=== PATIENT | female | born 2000 | race Caucasian/White ===

== ENCOUNTER → 2018-06-30 18:26 | Outpatient (CLI) | payer MEDICAID, SELFPAY ==
[2018-06-30 21:50] LABS: Chlamydia Trachomatis by PCR Negative (Negative); Neisserai gonorrhoeae by PCR Negative (Negative); Probe Check PASS; Sample Adequacy Control PASS; Specimen Processing Control PASS
== END ==
PROVIDERS: Family Provider Family Medicine; PCP Family Medicine; Visit Provider Nurse Practitioner Women's Health
DX: Z11.3 Encounter for screening for infections with a predominantly sexual mode of transmission (principal)
CPT/HCPCS: 87491; 87591

== ENCOUNTER → 2020-06-29 15:28 | Outpatient (CLI) | payer OTHER, SELFPAY ==
[2020-06-29 14:37] VITALS: BMI 26.1
[2020-06-29 16:48] LABS: Prolactin 10.9 ng/mL; Thyroid Stim Hormone (TSH) 1.28 uIU/mL (0.358-3.74)
[2020-07-04 13:44] LABS: HPV Reflexed? NOT INDICATED
== END ==
PROVIDERS: Referring Provider Obstetrics & Gynecology; Visit Provider Obstetrics & Gynecology
DX: N93.9 Abnormal uterine and vaginal bleeding, unspecified (principal); Z13.29 Encounter for screening for other suspected endocrine disorder; Z12.4 Encounter for screening for malignant neoplasm of cervix
CPT/HCPCS: 36415; 84146; 84443; 88175; G0145

== ENCOUNTER → 2020-07-20 | Outpatient (CLI) | payer OTHER, SELFPAY ==
[2020-06-29 14:37] VITALS: BMI 26.1
--- NOTE | 2020-07-20 13:53 | US_ITS ---
STUDY: ULTRASOUND OF THE FEMALE PELVIS - COMPLETE REASON FOR EXAM: Female, 20 years old. HEAVY BLEEDING AND CRAMPING, ABNORMAL CYCLES LMP: 07/14/2020 TECHNIQUE: Transabdominal and Transvaginal TECHNICAL QUALITY: Adequate. COMPARISON: None. FINDINGS: The uterus is retroflexed and is in a midline position. The uterus measures 5.3 x 3.1 x 4.5 cm. Normal uterine cervix. The endometrium measures 4.3 mm in thickness, and is within normal limits. There is no demonstrated endometrial mass. There is no demonstrated myometrial mass. I.U.D. - The patient does not have an I.U.D. The right ovary is visualized. The right ovary measures 2.9 x 2.5 x 2.2 cm. There are several subcentimeter peripherally located cysts. There is normal arterial and normal venous vascularity. The left ovary is visualized. The left ovary measures 3.6 x 2.1 x 2.3 cm. There are peripherally located subcentimeter cysts. There is normal arterial and normal venous vascularity. There is minimal fluid in the cul-de-sac. US/Transvaginal Non- IMPRESSION: Peripherally located subcentimeter cysts within the ovaries, in the appropriate clinical setting this may be secondary to polycystic ovarian syndrome. Electronically Signed: Josselyn Oneal MD at 17:06 EDT Tel , Service support ,
--- NOTE | 2020-07-20 13:53 | US_ITS ---
STUDY: ULTRASOUND OF THE FEMALE PELVIS - COMPLETE REASON FOR EXAM: Female, 20 years old. HEAVY BLEEDING AND CRAMPING, ABNORMAL CYCLES LMP: 07/14/2020 TECHNIQUE: Transabdominal and Transvaginal TECHNICAL QUALITY: Adequate. COMPARISON: None. FINDINGS: The uterus is retroflexed and is in a midline position. The uterus measures 5.3 x 3.1 x 4.5 cm. Normal uterine cervix. The endometrium measures 4.3 mm in thickness, and is within normal limits. There is no demonstrated endometrial mass. There is no demonstrated myometrial mass. I.U.D. - The patient does not have an I.U.D. The right ovary is visualized. The right ovary measures 2.9 x 2.5 x 2.2 cm. There are several subcentimeter peripherally located cysts. There is normal arterial and normal venous vascularity. The left ovary is visualized. The left ovary measures 3.6 x 2.1 x 2.3 cm. There are peripherally located subcentimeter cysts. There is normal arterial and normal venous vascularity. There is minimal fluid in the cul-de-sac. US/Pelvic (Non ) IMPRESSION: Peripherally located subcentimeter cysts within the ovaries, in the appropriate clinical setting this may be secondary to polycystic ovarian syndrome. Electronically Signed: Josselyn Oneal MD at 17:06 EDT Tel , Service support ,
== END | disposition home or self-care (01) ==
LOC: OPUS 13:53
PROVIDERS: Referring Provider Obstetrics & Gynecology; Visit Provider Obstetrics & Gynecology
DX: N93.9 Abnormal uterine and vaginal bleeding, unspecified (principal)
CPT/HCPCS: 76830; 76856

== ENCOUNTER → 2020-10-18 | Outpatient (CLI) | payer OTHER, SELFPAY ==
[2020-06-29 14:37] VITALS: BMI 26.1
== END | disposition home or self-care (01) ==
LOC: LABSPEC 13:50
PROVIDERS: PCP Family Medicine; Referring Provider Family Medicine; Visit Provider Family Medicine
DX: Z20.828 Contact with and (suspected) exposure to other viral communicable diseases (principal)
CPT/HCPCS: 87633; 87635; U0003

== ENCOUNTER → 2020-10-26 11:38 | Outpatient (CLI) | payer OTHER, SELFPAY ==
[2020-06-29 14:37] VITALS: BMI 26.1
[2020-10-26 13:49] LABS: Absolute Lymphocyte Count 1.29 X10^3/uL (0.83-4.51); Basophil# 0.03 X10^3/uL; Basophil% 0.6 % (0-1); Eosinophil# 0.14 X10^3/uL; Eosinophils% 2.9 % (0-5); Hematocrit 36.5 % (37-47); Hemoglobin 11.5 g/dL (12.0-15.0); Lymphocyte # 1.29 X10^3/ul (4.0); Lymphocyte % 26.8 % (19-41); Mean Corp Hgb Conc 31.5 g/dL (32-36); Mean Corpuscular Volume 82.4 fL (81-99); Monocyte# 0.31 X10^3/uL; Monocyte% 6.4 % (0-10); NRBC Flagged by Analyzer 0 % (0-5); Neutrophil # 3.03 X10^3/uL (2.7-7.7); Neutrophil % 63.1 % (47-70); Platelet Count 313 K/mm3 (150-450); RBC Distribution Width CV 12.5 % (11.6-14.6); RBC Distribution Width SD 38.1 fl (35.1-43.9); Red Blood Count 4.43 M/mm3 (4.2-5.4); White Blood Count 4.8 K/mm3 (4.4-11.0)
[2020-10-26 14:13] LABS: ALB/GLOB Ratio 1.1 RATIO (0.9-2.4); AST(SGOT) 21 U/L (15-37); Alanine Aminotransfer ALT/SGPT 24 U/L (13-56); Alkaline Phosphatase 90 U/L (45-117); Anion Gap 7 (5-15); BUN 10 mg/dL (7-18); BUN/Creat Ratio 12.8 RATIO (10-20); Calcium,Total 8.9 mg/dL (8.5-10.1); Chloride 105 mmol/L (98-107); Creatinine, Serum 0.78 mg/dL (0.55-1.02); EST Glomerular Filtration Rate 98 mL/min (>60); Est Glom Filt Rate - Afr Amer 118 mL/min (>60); Globulin 3.8 g/dL (2.2-4.2); Glucose 87 mg/dL (74-106); Potassium 3.7 mmol/L (3.5-5.1); Protein, Total 7.8 g/dL (6.4-8.2); Sodium Level 138 mmol/L (136-145); Thyroid Stim Hormone (TSH) 2.06 uIU/mL (0.358-3.74)
== END ==
PROVIDERS: PCP Family Medicine; Referring Provider Family Medicine; Visit Provider Family Medicine
DX: R00.0 Tachycardia, unspecified (principal)
CPT/HCPCS: 36415; 80053; 84443; 85025

== ENCOUNTER → 2020-11-10 08:15 | Outpatient (CLI) | payer BC, SELFPAY ==
[2020-06-29 14:37] VITALS: BMI 26.1
--- NOTE | 2020-11-10 16:59 | PFTCOMP_ITS ---
COMPLETE PULMONARY FUNCTION TEST INTERPRETATION Brief HPI: Patient is a 20 year old female, currently under the care of Dr. Rose, who presents to [facility] for complete pulmonary function tests secondary to diagnosis of asthma. Respiratory therapist reports good effort and reproducible results. Interpretation: Forced expiration spirometry shows a mild large airways obstructive ventilatory defect with an FEV1 of 99% predicted. There is a significant bronchodilator response in FEV1 by strict ATS criteria. Spirograms are of good quality and plateau slowly, indicating slowly emptying areas of the lungs. The respiratory flow volume loop shows decreased expiratory flow rates at all lung volumes consistent with airway obstruction. Lung volumes by body plethysmography show a decreased total lung capacity at 3.88 L, 75% predicted. All other lung volumes are reduced symmetrically. Diffusion capacity by carbon monoxide is normal at 98% predicted. The airway resistance is slightly elevated. No previous pulmonary function tests were available for review. Impression: Mild mixed ventilatory defect with normalization of obstruction with bronchodilators
== END ==
PROVIDERS: PCP Family Medicine; Referring Provider Family Medicine; Visit Provider Family Medicine
DX: J45.20 Mild intermittent asthma, uncomplicated (principal)
CPT/HCPCS: 94060; 94726; 94729

== ENCOUNTER → 2020-12-01 18:59 | Outpatient (CLI) | payer BC, SELFPAY ==
[2020-06-29 14:37] VITALS: BMI 26.1
--- NOTE | 2020-12-01 19:06 | US_ITS ---
STUDY: ABDOMINAL ULTRASOUND REASON FOR EXAM: Female, 20 years old. RUQ PAIN TECHNIQUE: Transabdominal ultrasound was performed with real-time and static marin scale imaging. TECHNICAL QUALITY: Adequate. COMPARISON: None. FINDINGS: Aorta: Visualized portions of abdominal aorta are normal in diameter. IVC: Visualized portions appear patent. Pancreas: Visualized portions of pancreas are unremarkable. Liver: Measures 15.8 cm. Liver shows normal echogenicity. There are 2 irregular hyperechoic lesions within the right liver measuring 3.2 cm and 1.9 cm respectively. Gallbladder: No stones or wall thickening. Negative sonographic Aguilar''s sign. Common bile duct: Measures 3 mm. No intraductal stones identified. Right kidney: Measures 10.9 cm in length. Normal contour. No cysts. No masses, stones, or hydronephrosis identified. Renal cortical thickness appears normal. Left kidney: Measures 10.1 cm in length. Normal contour. 1 cm cyst . No masses, stones, or hydronephrosis identified. Renal cortical thickness appears normal. Spleen: Measures 13.4 cm. It shows homogeneous echotexture. Additional findings: None of significance. US/Abdomen Complete IMPRESSION: Hepatic lesions as above are incompletely characterized. Recommend dedicated hepatic mass protocol MRI for further evaluation. Diffusely increased hepatic echogenicity may indicate steatosis in the appropriate clinical setting. Prominent spleen at the upper limits of normal for size Electronically Signed: Seth Bell MD at 21:18 EST Tel , Service support ,
== END ==
PROVIDERS: PCP Family Medicine; Visit Provider Family Medicine
DX: R10.9 Unspecified abdominal pain (principal)
CPT/HCPCS: 76700

== ENCOUNTER → 2020-12-02 08:03 | Outpatient (CLI) | payer BC, SELFPAY ==
[2020-06-29 14:37] VITALS: BMI 26.1
[2020-12-02 09:53] LABS: Absolute Lymphocyte Count 1.21 X10^3/uL (0.83-4.51); Absolute Neutrophil Count 2.9 X10^3/uL (2.0-7.7); Basophil# 0.03 X10^3/uL; Basophil% 0.6 % (0-1); Eosinophil# 0.19 X10^3/uL; Hematocrit 36.6 % (37-47); Hemoglobin 11.5 g/dL (12.0-15.0); Lymphocyte # 1.21 X10^3/ul (4.0); Lymphocyte % 25.6 % (19-41); Mean Corp Hgb Conc 31.4 g/dL (32-36); Mean Corpuscular Hgb 25.3 pg (27.0-32.0); Mean Corpuscular Volume 80.4 fL (81-99); Mean Platelet Vol. 11.1 fl (6.2-12.0); Monocyte# 0.36 X10^3/uL; Monocyte% 7.6 % (0-10); NRBC Flagged by Analyzer 0 % (0-5); Neutrophil # 2.93 X10^3/uL (2.7-7.7); Platelet Count 306 K/mm3 (150-450); RBC Distribution Width CV 12.8 % (11.6-14.6); RBC Distribution Width SD 37.1 fl (35.1-43.9); Red Blood Count 4.55 M/mm3 (4.2-5.4); White Blood Count 4.7 K/mm3 (4.4-11.0)
[2020-12-02 10:15] LABS: ALB/GLOB Ratio 1.1 RATIO (0.9-2.4); AST(SGOT) 22 U/L (15-37); Alanine Aminotransfer ALT/SGPT 24 U/L (13-56); Albumin, Serum 4.1 g/dL (3.2-5.0); Alkaline Phosphatase 90 U/L (45-117); Anion Gap 6 (5-15); BUN 10 mg/dL (7-18); BUN/Creat Ratio 12.7 RATIO (10-20); Chloride 107 mmol/L (98-107); Creatinine, Serum 0.79 mg/dL (0.55-1.02); EST Glomerular Filtration Rate 97 mL/min (>60); Est Glom Filt Rate - Afr Amer 117 mL/min (>60); Globulin 3.8 g/dL (2.2-4.2); Glucose 81 mg/dL (74-106); Lipase 154 U/L (73-393); Potassium 4.1 mmol/L (3.5-5.1); Protein, Total 7.9 g/dL (6.4-8.2); Sodium Level 138 mmol/L (136-145)
[2020-12-04 07:11] LABS: EBV-VCA IgG > 600.0 U/mL (0.0-17.9)
== END ==
PROVIDERS: PCP Family Medicine; Referring Provider Family Medicine; Visit Provider Family Medicine
DX: R10.9 Unspecified abdominal pain (principal)
CPT/HCPCS: 36415; 80053; 83690; 85025; 86664; 86665

== ENCOUNTER → 2020-12-07 06:36 | Outpatient (CLI) | payer BC, SELFPAY ==
[2020-06-29 14:37] VITALS: BMI 26.1
--- NOTE | 2020-12-07 06:58 | MRI_ITS ---
STUDY: MRI ABDOMEN WITH AND WITHOUT CONTRAST REASON FOR EXAM: Female, 20 years old. abnormal utrasound, INCREASED RUQ PAIN, N/V TECHNIQUE: Standardized fat and water weighted pulse sequences were obtained in all 3 orthogonal planes post contrast administration. IV 10cc dotarem was administered for the contrast portion of the examination. COMPARISON: Ultrasound 12/01/2020 FINDINGS: The visualized lung bases are unremarkable. The visualized portions of the heart are within normal limits. There are multiple lesions within the liver. There is a 3.0 cm mass within the anterior segment the right lobe of the liver within the dome of the liver and a similar 2.2 cm mass within the lateral segment left lobe of the liver. These are slightly hypointense on T1 slightly hyperintense on T2 and demonstrate the peripheral circumferential dense contrast enhancement on the hepatic arterial phase with a central area of decreased enhancement and rapid washout on subsequent phases most consistent with hepatic adenomas. Clinical correlation is recommended regarding the oral contraceptive use. There is a 1.5 cm round mass within the lateral aspect of the anterior segment the right lobe of the liver. This mass is hypointense on T1-weighted images and hyperintense on the T2-weighted images with restricted diffusion which demonstrates peripheral globular contrast enhancement with gradual filling in over time consistent with a hemangioma. This likely corresponds to the larger mass seen on recent ultrasound. There is a similar 1 cm lesion in the posterior segment the right lobe of liver which is too small to fully characterize but also felt to represent a hemangioma. Normal gallbladder and extrahepatic biliary system. Normal spleen. Normal pancreas. Normal bilateral adrenal glands. Normal right kidney. Normal left kidney. Normal visualized stomach. Normal small intestine. Normal colon. The appendix is visualized and appears normal. Normal abdominal aorta. Normal inferior vena cava. Normal retroperitoneum. Normal abdominal wall. Normal osseous structures. MRI/MRI Abd WITH and W/O Contrast IMPRESSION: 1. MRI confirms 2 early enhancing masses within the superior aspect of the liver felt to represent hepatic adenomas. Clinical correlation is recommended to confirm oral contraceptive use. Other less likely possibilities include focal nodular hyperplasia or much less likely the multifocal hepatocellular carcinoma including fibrolamellar hepatocellular carcinoma or metastasis. 2. MRI confirms 2 lesions with peripheral globular enhancement within the periphery of the right lobe of liver corresponding to the lesion seen on ultrasound consistent with hemangiomas. Electronically Signed: Jeovanny Hernandez MD at 8:46 EST Tel , Service support ,
== END ==
PROVIDERS: PCP Family Medicine; Referring Provider Family Medicine; Visit Provider Family Medicine
DX: K76.9 Liver disease, unspecified (principal)
CPT/HCPCS: 74183; A9575; A4216

== ENCOUNTER → 2020-12-09 16:26 | Outpatient (CLI) | payer BC, SELFPAY ==
[2020-06-29 14:37] VITALS: BMI 26.1
[2020-12-09 18:06] LABS: AST(SGOT) 20 U/L (15-37); Alanine Aminotransfer ALT/SGPT 26 U/L (13-56); Albumin, Serum 4.2 g/dL (3.2-5.0); Alkaline Phosphatase 97 U/L (45-117); Bilirubin, Direct 0.07 mg/dL (0.00-0.30); GGTP 40 U/L (5-55); Protein, Total 8.2 g/dL (6.4-8.2)
[2020-12-12 06:06] LABS: HEPATITIS B SURFACE AG Negative (Negative); Hepatitis A AB, Total Positive (Negative); Hepatitis A IgM Antibody Negative (Negative); Hepatitis B Core AB IgM Negative (Negative); Hepatitis B Core Ab Total Negative (Negative); Hepatitis C Ab <0.1 s/co ratio (0.0-0.9)
[2020-12-12 11:14] LABS: Hep B Surface Antibodies Reactive (.)
== END ==
PROVIDERS: PCP Family Medicine; Referring Provider Family Medicine; Visit Provider Family Medicine
DX: K76.9 Liver disease, unspecified (principal)
CPT/HCPCS: 36415; 80076; 82977; 86704; 86705; 86706; 86708; 86709; 86803; 87340

== ENCOUNTER → 2020-12-20 10:21 | Outpatient (CLI) | payer BC, SELFPAY ==
[2020-06-29 14:37] VITALS: BMI 26.1
--- NOTE | 2020-12-20 10:24 | NM_ITS ---
CLINICAL: 20-year-old female with reported history of right upper quadrant abdominal pain and nausea. RADIONUCLIDE HEPATOBILIARY SCINTIGRAPHY COMPARISON: MRI of the abdomen report 12/07/2020, abdominal ultrasound report 01/01/2021 FINDINGS: Following the intravenous administration of 5.4 mCi of 99m Tc Mebrofenin, hepatobiliary images reveal: 1. Relatively prompt and homogeneous radiopharmaceutical concentration is noted by a normal sized liver. No parenchymal defects are identified. 2. Gallbladder activity is identified at 15 minutes post radiopharmaceutical administration. 3. Small intestinal tract is observed at 45 minutes following tracer injection. 4. Washout of the radiopharmaceutical by the hepatic parenchyma appears qualitatively normal. Cholecystokinin (0.02 ug/kg) was administered intravenously over a 30-minute period. The post CCK gallbladder ejection fraction calculated at 20 minutes following Cholecystokinin administration was noted to be 32.0 % (normal greater than 35%). NM/Hepatobilliary Img w/Pharm Int IMPRESSION: 1. ABNORMAL 99m Tc Mebrofenin hepatobiliary imaging examination with Cholecystokinin. A. A gallbladder ejection fraction calculated to be less than 35% following the administration of Cholecystokinin is consistent with a high probability of the presence of functional hepatobiliary disease (gallbladder and/or sphincter of Oddi dyskinesia) and/or organic hepatobiliary disease (chronic acalculous cholecystitis and/or cystic duct syndrome) in patients with intermediate to high pretest probabilities of hepatobiliary illness. (Shraddha Horan et al, Journal of Nuclear Medicine 32:1695, 1991). Electronically Signed: Jeovanny Mai DO at 23:03 EST Tel , Service support ,
== END ==
PROVIDERS: PCP Family Medicine; Visit Provider Family Medicine
DX: R10.11 Right upper quadrant pain (principal)
CPT/HCPCS: 78227; A9537; J2805

== ENCOUNTER → 2021-01-04 | Outpatient (CLI) | payer BC, SELFPAY ==
[2020-12-23 13:13] VITALS: BMI 26.3
[2021-01-05 15:06] LABS: Probe Check PASS; Specimen Processing Control PASS
== END | disposition home or self-care (01) ==
PROVIDERS: PCP Family Medicine; Referring Provider Internal Medicine Gastroenterology; Visit Provider Internal Medicine Gastroenterology
DX: Z11.52 Encounter for screening for COVID-19 (principal)
CPT/HCPCS: 87635; U0002; U0003

== ENCOUNTER → 2021-04-10 | Outpatient (CLI) | payer BC, SELFPAY ==
[2020-12-23 13:13] VITALS: BMI 26.3
== END | disposition home or self-care (01) ==
LOC: LABSPEC 15:50
PROVIDERS: PCP Family Medicine; Visit Provider Family Medicine
DX: L02.91 Cutaneous abscess, unspecified (principal)
CPT/HCPCS: 87070; 87205

== ENCOUNTER 2021-06-11 22:28 | Emergency (ER) | payer BC, SELFPAY ==
[2020-12-23 13:13] VITALS: BMI 26.3
[2021-06-11 22:29] VITALS: BP 127/89; PULSE 108; RESP 16; TEMP 36.6; O2SAT 100; BMI 26.2
[2021-06-11 22:31] VITALS: BP 127/89; PULSE 102; RESP 16; TEMP 36.6; O2SAT 100
[2021-06-11 22:35] VITALS: O2SAT 97
--- NOTE | 2021-06-11 22:50 | RAD_ITS ---
STUDY: X-RAY CHEST REASON FOR EXAM: Female, 21 years old. cough TECHNIQUE: PA and lateral views of the chest. COMPARISON: None. FINDINGS: No focal infiltrates or effusions. No pneumothorax. Normal size heart. Normal mediastinum and kelly. Normal visualized pulmonary arteries. Normal visualized aortic arch and descending thoracic aorta. Normal visualized thoracic spine. Normal visualized ribs, clavicles, and shoulders. There is no demonstrated abnormality of the visualized soft tissue structures of the upper abdomen. RAD/Chest PA and Lateral IMPRESSION: Normal x-ray examination of the chest. Electronically Signed: Alfred Tony MD at 0:11 EDT , Service support ,
--- NOTE | 2021-06-11 22:50 | EKG12_ITS ---
Test Reason : SOB Blood Pressure : / mmHG Vent. Rate : 098 BPM Atrial Rate : 098 BPM P-R Int : 130 ms QRS Dur : 084 ms QT Int : 332 ms P-R-T Axes : 046 020 026 degrees QTc Int : 423 ms Normal sinus rhythm Normal ECG Confirmed by LITZY DÍAZ, MARY ([id number]), brands editor ARACELIS DIANA ([id number]) on 06/14/2021 9:51:08 AM Referred By: KELL Confirmed By:MARY MCGHEE MD
--- NOTE | 2021-06-11 22:52 | EDS_ITS ---
HPI History of Present Illness Chief Complaint: Cold Sx Informant: patient Narrative Narrative: Patient presents with about 3 days of nasal congestion runny nose and very slight sore throat. She is also been coughing. She has been using her inhaler a bit more as she does have asthma. She does note that she has more wheezing in between. She feels her lungs are tight. The albuterol does seem to help. She is also concerned because many people where she works have Covid or have been exposed. She has not been immunized against Covid nor has she ever had it as far as she knows. No hemoptysis. She does have some yellowish sputum. No fevers or chills. Nothing makes her symptoms worse. Albuterol does make them a bit better. PFSH PFS Medical History Abdominal pain Acid reflux Anemia Anxiety Anxiety and depression Asthma Back problem Constipation Depression Diarrhea Fatigue IBS (irritable bowel syndrome) Nausea & vomiting Home Medications albuterol sulfate 90 mcg/actuation aerosol inhaler 2 puff INHALATION Q4H PRN g 12/23/20 [History Last Taken Unknown] amitriptyline 25 mg tablet 12.5 mg PO QHS tab 12/23/20 [History Last Taken Unknown] dicyclomine 10 mg capsule 10 mg PO ONCE PRN cap 12/23/20 [History Last Taken Unknown] ferrous sulfate 325 mg (65 mg iron) tablet,delayed release 325 mg PO DAILY tab 12/23/20 [History Last Taken Unknown] omeprazole 20 mg capsule,delayed release 20 mg PO DAILY cap 12/23/20 [History Last Taken Unknown] sertraline 100 mg tablet 100 mg PO DAILY tab 12/23/20 [History Last Taken Unknown] sertraline 25 mg tablet 50 mg PO DAILY tab 12/23/20 [History Last Taken Unknown] Allergy/AdvReac Type Severity Reaction Status Date / Time No Known Allergies Allergy Verified 06/11/21 22:31 Family History Mother Breast cancer 20s Cervical cancer Aunt Breast cancer 30s Grandmother Diabetes Hypertension Surgical History Hx of wisdom tooth extraction Social History current occupation: [email or web address] Smoking Status: Never smoker second hand exposure: No alcohol intake: never substance use type: does not use caffeine: Yes Type: coffee Number of servings: 4 what type of physical activity do you participate in: none and walking frequency: does not exercise seatbelt use: always do you feel safe at home: Yes ROS ROS ED Constitutional Constitutional ED: Denies chills, fever(s) or weight loss Eyes Eyes: Denies change in vision ENT ENT ED: Reports rhinorrhea and sore throat; Denies ear pain Cardiovascular Cardiovascular: Denies chest pain, palpitations or paroxysmal nocturnal dyspnea Respiratory/Chest Respiratory/Chest: Reports cough, dyspnea and sputum; Denies paroxysmal nocturnal dyspnea Gastrointestinal Gastrointestinal: Denies abdominal pain, nausea or vomiting Genitourinary Genitourinary ED: Denies dysuria or hematuria Musculoskeletal Musculoskeletal: Reports other Details: No leg pain or swelling. ; Denies arthralgias, back pain, myalgias or neck pain Integumentary Denies abscess or rash Neurologic Neurologic: Denies paresthesias Psychiatric Psychiatric: Reports anxiety and depression Hematologic/Lymphatic Hematologic/Lymphatic: Denies easy bleeding or easy bruising EXAM Physical Exam Const Vital Signs: 06/11/21 22:29 06/11/21 22:31 06/11/21 22:35 Temperature 97.9 F 97.9 F Temperature Source Temporal Temporal Pulse Rate 108 H 102 H Respiratory Rate 16 16 Respiratory Effort Normal Non-Labored Respiratory Depth Normal Respiratory Pattern Normal Blood Pressure 127/89 H 127/89 H Blood Pressure Mean 101 101 Pulse Ox 100 100 Oxygen Delivery Method Room Air Room Air Room Air 06/11/21 23:08 Temperature Temperature Source Pulse Rate 102 H Respiratory Rate 16 Respiratory Effort Respiratory Depth Respiratory Pattern Normal Blood Pressure Blood Pressure Mean Pulse Ox Oxygen Delivery Method Positive well nourished and well developed General Appearance ED: well developed and NAD HEENT HEENT Narrative: Pharynx is minimally erythematous but there is no swelling or exudate. Voice is normal. atraumatic Eyes EOMs intact bilaterally Neck no lymphadenopathy and supple Neck Narrative: No stridor heard Resp normal respiratory effort Resp Narrative: Patient has slight prolonged expiration but no significant wheeze at this time. By her history, she does have increased wheezing though. Cardio regular rate and regular rhythm Cardio Narrative: Heart rate is about 90 at this time. GI non-tender and non-distended Palpation: soft Back/Spine no CVA tenderness and normal to inspection Extremity normal to inspection Extremity Narrative: Extremities show no tenderness, cords, asymmetry, swelling, distended veins. General Extremety ED: Negative for edema or tenderness General Extremity: Negative for edema Neuro oriented x3 Sensorium / Orientation: alert Psych mental status grossly normal Skin Lesions: no lesions Rashes: no rashes MDM MDM MDM Narrative Medical decision making narrative: Patient feels better after DuoNeb. Her lungs are clear. When I walk in the room she is smiling. She is comfortable. I do not have Covid back. Patient does have a history of asthma. Has been having some more upper respiratory cough and wheezing. I will give her a dose of Decadron. She has her inhaler at home. We discussed reasons to return. Radiography Diagnostic Testing: Radiology Impression Chest X-Ray 06/11/21 22:50 IMPRESSION: Normal x-ray examination of the chest. Electronically Signed: Alfred Tony MD at 0:11 EDT , Service support , Discharge Plan Triage Chief Complaint: Cold Sx ED Provider: Cole Castañeda Dx/Rx/DC Orders Clinical Impression: URI (upper respiratory infection), Asthma exacerbation Instructions: Asthma Prescriptions: No Action sertraline [Zoloft] 25 mg tablet 50 mg PO DAILY RF: 0 sertraline 100 mg tablet 100 mg PO DAILY RF: 0 omeprazole 20 mg capsule,delayed release(DR/EC) 20 mg PO DAILY RF: 0 amitriptyline 25 mg tablet 12.5 mg PO QHS RF: 0 ferrous sulfate 325 mg (65 mg iron) tablet,delayed release (DR/EC) 325 mg PO DAILY RF: 0 albuterol sulfate 90 mcg/actuation HFA aerosol inhaler 2 puff INHALATION Q4H PRNRF: 0 dicyclomine 10 mg capsule 10 mg PO ONCE PRNRF: 0 Primary Care Provider: Yonis Rose Referrals: Yonis Rose MD [Primary Care Provider] - 3-5 Days if not improving Disposition Disposition: Home, Self Care
[2021-06-11] MEDS: Ipratropium/Albuterol Sulfate 3 ML AMPUL.NEB INHALATION (23:07)
[2021-06-11 23:08] VITALS: PULSE 102; RESP 16
[2021-06-12] MEDS: dexAMETHasone 4 MG Tablet 6 MG PO (01:40)
== END 2021-06-12 01:42 | disposition home or self-care (01) ==
PROVIDERS: Emergency Provider Emergency Medicine; PCP Family Medicine
DX: J45.901 Unspecified asthma with (acute) exacerbation (principal); J06.9 Acute upper respiratory infection, unspecified; F41.9 Anxiety disorder, unspecified; F32.9 Major depressive disorder, single episode, unspecified; Z79.51 Long term (current) use of inhaled steroids; Z79.899 Other long term (current) drug therapy
CPT/HCPCS: 71046; 87426; 93005; 94640; 99283

== ENCOUNTER → 2021-07-28 12:21 | Outpatient (CLI) | payer BC, SELFPAY ==
[2021-07-28 15:15] LABS: Absolute Lymphocyte Count 1.16 X10^3/uL (0.83-4.51); Absolute Neutrophil Count 3.6 X10^3/uL (2.0-7.7); Basophil# 0.03 X10^3/uL; Basophil% 0.6 % (0-1); Eosinophil# 0.05 X10^3/uL; Hematocrit 34.9 % (37-47); Hemoglobin 11.4 g/dL (12.0-15.0); Lymphocyte # 1.16 X10^3/ul (0.83-4.51); Lymphocyte % 22.7 % (19-41); Mean Corp Hgb Conc 32.7 g/dL (32-36); Mean Corpuscular Hgb 28.1 pg (27.0-32.0); Mean Platelet Vol. 10.7 fl (6.2-12.0); Monocyte# 0.25 X10^3/uL; Monocyte% 4.9 % (0-10); NRBC Flagged by Analyzer 0 % (0-5); Neutrophil # 3.62 X10^3/uL (2.7-7.7); Neutrophil % 70.6 % (47-70); Platelet Count 289 K/mm3 (150-450); RBC Distribution Width CV 13.2 % (11.6-14.6); RBC Distribution Width SD 41.2 fl (35.1-43.9); Red Blood Count 4.06 M/mm3 (4.2-5.4); White Blood Count 5.1 K/mm3 (4.4-11.0)
[2021-07-28 15:44] LABS: Ferritin 9 ng/mL (8-252)
== END ==
PROVIDERS: PCP Family Medicine; Referring Provider Family Medicine; Visit Provider Family Medicine
DX: D64.9 Anemia, unspecified (principal)
CPT/HCPCS: 36415; 82728; 85025

== ENCOUNTER → 2022-05-02 | Outpatient (CLI) | payer OTHER, SELFPAY ==
--- NOTE | 2022-05-02 13:51 | RAD_ITS ---
STUDY: X-RAY - RIGHT ANKLE REASON FOR EXAM: Female, 21 years old. Pain/injury TECHNIQUE: 3 view(s) of the ankle. COMPARISON: None. FINDINGS: Normal visualized distal tibia and fibula. Normal medial and lateral malleoli. Normal tibiotalar articulation and ankle mortise. Normal visualized talus and calcaneus. The visualized subtalar, talonavicular, calcaneocuboid and tarsal articulations are normal. Soft tissue swelling overlying the lateral malleolus. RAD/Ankle min 3 Views IMPRESSION: Soft tissue swelling overlying the lateral malleolus. Electronically Signed: Jim Cartwright MD at 14:18 EDT ,
== END | disposition home or self-care (01) ==
LOC: MTRAD 13:50
PROVIDERS: PCP Family Medicine; Referring Provider Nurse Practitioner Family; Visit Provider Nurse Practitioner Family
DX: M25.579 Pain in unspecified ankle and joints of unspecified foot (principal)
CPT/HCPCS: 73610

== ENCOUNTER → 2022-07-02 | Outpatient (CLI) | payer OTHER, SELFPAY ==
[2022-07-02 15:37] LABS: T4 Free Direct 0.82 ng/dL (0.76-1.46); Thyroid Stim Hormone (TSH) 3.08 uIU/mL (0.358-3.74)
[2022-07-03 09:01] LABS: HIV - WCH Non-Reactive (Nonreactive); Hepatitis C Antibody Non-Reactive (Nonreactive); Syphilis Antibodies Non-reactive
[2022-07-04 21:06] LABS: Chlamydia By Nucleic Acid AMP Negative (Negative)
[2022-07-05 08:49] LABS: HSV 1 IgG 1.44 index (0.00-0.90); HSV 2 IgG < 0.91 index (0.00-0.90); Thyroid Peroxidase AB 16 IU/mL (0-34)
[2022-07-05 15:26] LABS: Gonococcus By Nucleic Acid AMP Negative (Negative)
== END | disposition home or self-care (01) ==
PROVIDERS: PCP Family Medicine; Referring Provider Nurse Practitioner Women's Health; Visit Provider Nurse Practitioner Women's Health
DX: Z20.2 Contact with and (suspected) exposure to infections with a predominantly sexual mode of transmission (principal)
CPT/HCPCS: 36415; 84439; 84443; 86376; 86695; 86696; 86703; 86780; 86803; 87491; 87591

== ENCOUNTER → 2022-07-03 | Outpatient (CLI) | payer OTHER, SELFPAY ==
[2022-07-03 14:57] LABS: Anion Gap 5 (5-15); BUN 15 mg/dL (7-18); BUN/Creat Ratio 19.7 RATIO (10-20); Calcium,Total 9.5 mg/dL (8.5-10.1); Chloride 107 mmol/L (98-107); Creatinine, Serum 0.76 mg/dL (0.55-1.02); EST Glomerular Filtration Rate 99 mL/min (>60); Est Glom Filt Rate - Afr Amer 120 mL/min (>60); Glucose 81 mg/dL (74-106); Sodium Level 140 mmol/L (136-145)
== END | disposition home or self-care (01) ==
LOC: MFPLAB 14:20
PROVIDERS: PCP Family Medicine; Visit Provider Family Medicine
DX: L70.9 Acne, unspecified (principal)
CPT/HCPCS: 80048

== ENCOUNTER → 2023-02-19 | Outpatient (CLI) | payer OTHER, SELFPAY | END | disposition home or self-care (01) | LOC: LABSPEC 16:58 | PROVIDERS: PCP Family Medicine; Referring Provider Nurse Practitioner Women's Health; Visit Provider Nurse Practitioner Women's Health | DX: N89.8 Other specified noninflammatory disorders of vagina (principal) | CPT/HCPCS: 87070; 87077; 87186; 87205 ==

== ENCOUNTER → 2023-05-09 | Outpatient (CLI) | payer OTHER, SELFPAY ==
[2023-05-09 11:12] LABS: HIV - WCH Non-Reactive (Nonreactive)
[2023-05-10 20:07] LABS: HCV Quant. RNA PCR HCV Not Detected IU/mL (.); HSV 1 IgG < 0.91 index (0.00-0.90); HSV 2 IgG < 0.91 index (0.00-0.90)
[2023-05-11 12:08] LABS: Chlamydia By Nucleic Acid AMP Negative (Negative); Gonococcus By Nucleic Acid AMP Negative (Negative)
[2023-05-13 20:43] LABS: HPV Reflexed? NOT INDICATED
== END | disposition home or self-care (01) ==
PROVIDERS: PCP Family Medicine; Referring Provider Obstetrics & Gynecology; Visit Provider Obstetrics & Gynecology
DX: Z12.4 Encounter for screening for malignant neoplasm of cervix (principal); Z20.2 Contact with and (suspected) exposure to infections with a predominantly sexual mode of transmission
CPT/HCPCS: 36415; 86695; 86696; 86703; 87491; 87522; 87591; 88175; G0145

== ENCOUNTER → 2023-05-23 | Outpatient (CLI) | payer OTHER, SELFPAY ==
[2023-05-23 15:52] LABS: Absolute Neutrophil Count 2.7 X10^3/uL (2.0-7.7); Basophil# 0.02 X10^3/uL; Basophil% 0.5 % (0-1); Eosinophil# 0.13 X10^3/uL; Hematocrit 37.1 % (37-47); Hemoglobin 11.4 g/dL (12.0-15.0); Lymphocyte % 27.7 % (19-41); Mean Corp Hgb Conc 30.7 g/dL (32-36); Mean Corpuscular Hgb 25.5 pg (27.0-32.0); Mean Platelet Vol. 11.4 fl (6.2-12.0); Monocyte# 0.26 X10^3/uL; NRBC Flagged by Analyzer 0 % (0-5); Neutrophil # 2.71 X10^3/uL (2.7-7.7); Neutrophil % 62.6 % (47-70); Platelet Count 298 K/mm3 (150-450); RBC Distribution Width CV 12.8 % (11.6-14.6); RBC Distribution Width SD 38.5 fl (35.1-43.9); Red Blood Count 4.47 M/mm3 (4.2-5.4); White Blood Count 4.3 K/mm3 (4.4-11.0)
[2023-05-23 16:19] LABS: Hemoglobin A1c 4.9 % (3.8-5.6)
[2023-05-23 16:26] LABS: ALB/GLOB Ratio 1.1 RATIO (0.9-2.4); AST(SGOT) 16 U/L (15-37); Alanine Aminotransfer ALT/SGPT 20 U/L (13-56); Alkaline Phosphatase 47 U/L (45-117); Anion Gap 6 (5-15); BUN 12 mg/dL (7-18); BUN/Creat Ratio 16.8 RATIO (10-20); Calcium,Total 8.9 mg/dL (8.5-10.1); Chloride 109 mmol/L (98-107); Cholesterol 193 mg/dL (200); Creatinine, Serum 0.72 mg/dL (0.55-1.02); EST Glomerular Filtration Rate 106 mL/min (>60); Est Glom Filt Rate - Afr Amer 128 mL/min (>60); Ferritin 5 ng/mL (8-252); Globulin 3.7 g/dL (2.2-4.2); Glucose 84 mg/dL (74-106); High Density Lipoprotein 60 mg/dL; Protein, Total 7.7 g/dL (6.4-8.2); Sodium Level 138 mmol/L (136-145); Thyroid Stim Hormone (TSH) 1.76 uIU/mL (0.358-3.74); Triglycerides 79 mg/dL; Very Low Density Lipoprotein 16 mg/dL (5-40)
[2023-05-23 16:31] LABS: Vitamin B12 828 pg/mL (211-911)
== END | disposition home or self-care (01) ==
LOC: MFPLAB 11:55
PROVIDERS: PCP Family Medicine; Visit Provider Family Medicine
DX: R42 Dizziness and giddiness (principal); Z13.220 Encounter for screening for lipoid disorders
CPT/HCPCS: 36415; 80053; 80061; 82607; 82728; 82746; 83036; 84443; 85025

== ENCOUNTER → 2023-11-11 | Outpatient (CLI) | payer OTHER, SELFPAY ==
[2023-11-11 09:15] LABS: Absolute Lymphocyte Count 1.41 X10^3/uL (0.83-4.51); Basophil# 0.02 X10^3/uL; Basophil% 0.3 % (0-1); Eosinophil# 0.17 X10^3/uL; Eosinophils% 2.8 % (0-5); Hematocrit 37.6 % (37-47); Hemoglobin 11.8 g/dL (12.0-15.0); Lymphocyte # 1.41 X10^3/ul (0.83-4.51); Lymphocyte % 23.6 % (19-41); Mean Corp Hgb Conc 31.4 g/dL (32-36); Mean Corpuscular Hgb 25.4 pg (27.0-32.0); Mean Platelet Vol. 10.8 fl (6.2-12.0); Monocyte# 0.35 X10^3/uL; Monocyte% 5.9 % (0-10); NRBC Flagged by Analyzer 0 % (0-5); Neutrophil # 4.01 X10^3/uL (2.7-7.7); Neutrophil % 67.1 % (47-70); Platelet Count 304 K/mm3 (150-450); RBC Distribution Width CV 14.3 % (11.6-14.6); RBC Distribution Width SD 40.8 fl (35.1-43.9); Red Blood Count 4.64 M/mm3 (4.2-5.4)
[2023-11-11 10:05] LABS: NATERA MAILED SPECIMEN
[2023-11-11 10:12] LABS: HIV - WCH Non-Reactive (Nonreactive); Hepatitis B Surface Antigen Non-Reactive (Nonreactive); Hepatitis C Antibody Non-Reactive (Nonreactive); Rubella IgG Reactive (Nonreactive); Syphilis Antibodies Non-reactive
[2023-11-14 05:08] LABS: Chlamydia By Nucleic Acid AMP Negative (Negative); Gonococcus By Nucleic Acid AMP Negative (Negative)
== END | disposition home or self-care (01) ==
PROVIDERS: PCP Family Medicine; Referring Provider Obstetrics & Gynecology; Visit Provider Obstetrics & Gynecology
DX: Z34.81 Encounter for supervision of other normal pregnancy, first trimester (principal); Z31.430 Encounter of female for testing for genetic disease carrier status for procreative management; Z3A.00 Weeks of gestation of pregnancy not specified
CPT/HCPCS: 36415; 85025; 86703; 86762; 86780; 86803; 86850; 86900; 86901; 87086; 87340; 87491; 87591

== ENCOUNTER → 2024-01-09 | Outpatient (CLI) | payer OTHER, SELFPAY ==
--- OUTSIDE RECORDS SUMMARY | 2024-01-09 18:29 | XMS RPT_ITS | CCD ---
Author Name Unknown Address [address] [place] [address] Organization [facility] Care Team Providers Care Professor Of Rhetoric Name Role Phone CHIVO CAMPA Attending Unavailable CHIVO CAMPA Primary Care Unavailable CHIVO CAMPA Admitting Unavailable Yonis Rose DO Primary Care Provider [phone] DR JONATHAN ROMO DO Primary Care Physician Jennifer Malcolm PT Unavailable Unavailable FARHAT COWART DO Attending Unavailable DR JONATHAN ROMO DO Primary Care Unavailable Allergies Allergy Classification Reported Allergen(s) Allergy Type Date of Onset Reaction(s) Facility (1 source) almond allergenic extract Drug Allergy 09-11-2021 [facility] (1 source) Soybean Oil Drug Allergy 09-11-2021 [facility] Medications Current Medications Medication Drug Class(es) Dates Sig (Normalized) Sig (Original) dicyclomine hydrochloride 10 mg oral capsule (1 source) Anticholinergic Start: 03-17-2020 dicyclomine 10 mg oral capsule Dose : 20 mg = 2 cap(s), Oral, QID, PRN abdominal discomfort, # 30 cap(s), 0 Refill(s), [facility]acy: [facility], 165.1, cm, 03/17/20 11:07:00 EDT, Height, kg, 03/17/20 11:07:00 EDT, Dosing Weight Start Date: 03/17/20 Status: Ordered ferrous sulfate 325 mg delayed release oral tablet (1 source) Start: 04-22-2020 ferrous sulfate 325 mg (65 mg elemental iron) oral delayed release tablet Dose : 325 mg = 1 tab(s), Oral, qDay, # 90 tab(s), 0 Refill(s), Pharmacy: [address], 165.1, cm, 04/19/20 11:41:00 EDT, Height, kg, 04/19/20 11:41:00 EDT, Dosing Weight Start Date: 04/22/20 Status: Ordered LORazepam 0.5 mg oral tablet (1 source) Benzodiazepine Start: 08-30-2020 LORazepam 0.5 mg oral tablet See Instructions, PRN as needed for anxiety, 1 tab(s) Oral 30 minutes prior to flight as needed for flight anxiety, # 2 tab(s), 0 Refill(s), Pharmacy: [facility], Fear of flying, 165, cm, 08/30/20 13:11:00 EDT, Height, 71, kg, 08/30/20 13:11:00 EDT, Dosing Weight Start Date: 08/30/20 Status: Ordered naproxen 250 mg oral tablet (1 source) Nonsteroidal Anti-inflammatory Drug Start: 09-25-2023 End: 10-02-2023 naproxen 250 mg oral tablet Dose : 250 mg = 1 tab(s), Oral, BID, X 7 day(s), # 14 tab(s), 0 Refill(s), 10/02/23 7:04:00 PM EST Start Date: 09/25/23 Stop Date: 10/02/23 Status: Ordered sertraline 50 mg oral tablet (1 source) Serotonin Reuptake Inhibitor Start: 08-30-2020 sertraline 50 mg oral tablet Dose : 50 mg = 1 tab(s), Oral, qDay, # 90 tab(s), 1 Refill(s), Pharmacy: [facility], 165, cm, 08/30/20 13:11:00 EDT, Height, kg, 08/30/20 13:11:00 EDT, Dosing Weight Start Date: 08/30/20 Status: Ordered Completed/Discontinued Medications Medication Drug Class(es) Dates Sig (Normalized) Sig (Original) Gadoxetate Disodium (EOVIST) injection 6.55 mL (1 source) Start: 02-26-2022 End: 02-26-2022 Gadoxetate Disodium (EOVIST) injection 6.55 mL Problems Problem Classification Problem Date Documented Da te Episodic/Chronic Anxiety disorders (1 source) Anxiety 04-19-2020 Chronic Asthma (1 source) Exercise-induced asthma 09-01-2019 Chronic Chronic obstructive pulmonary disease and bronchiectasis (1 source) Bronchitis 01-01-2020 Episodic Deficiency and other anemia (1 source) Anemia 04-19-2020 Episodic Esophageal disorders (1 source) Gastroesophageal reflux disease 09-01-2019 Chronic Headache; including migraine (1 source) Migraine 09-01-2019 Chronic Lymphadenitis (1 source) Axillary lymphadenopathy 01-01-2020 Episodic Mood disorders (2 sources) Depression; Translations: [Recurrent major depressive episodes, moderate ] 09-01-2019 Chronic Nonspecific chest pain (1 source) Chest pain; Translations: [Other chest pain] Onset: 3 Episodic Other gastrointestinal disorders (1 source) Irritable bowel syndrome 04-19-2020 Chronic Other gastrointestinal disorders (1 source) Diarrhea 03-17-2020 Episodic Other liver diseases (1 source) Lesion of liver; Translations: [Liver disease, unspecified] Chronic Residual codes; unclassified (1 source) Insomnia 09-01-2019 Episodic Spondylosis; intervertebral disc disorders; other back problems (2 sources) Neck pain; Translations: [Cervicalgia] Onset: 3 Episodic Viral infection (1 source) Viral disease; Translations: [Viral infection, unspecified] Onset: 3 Episodic Results Test Name Value Interpretation Reference Range Facil ity Vital Signs Date Time Vital Sign Value Performing Clinician Faci lity 09-25-2023 19:51-0500 [facility] 72 [facility] 09-25-2023 19:51-0500 Respiratory rate 20 /[facility] 09-25-2023 17:31-0500 Body temperature 98.78 [degF] [facility] CHOUJAA DO [facility] 09-25-2023 17:31-0500 Diastolic Blood Pressure Non-Invasive 87 mm[Hg] [facility] CJUJAA DO [facility] 09-25-2023 17:31-0500 Heart rate 90 /min FARHAT ANTONYA DO [facility] 09-25-2023 17:31-0500 Respiratory rate 20 /min FARHAT ANTONYA DO [facility] 09-25-2023 17:31-0500 Systolic Blood Pressure Non-Invasive 127 mm[Hg] FARHAT ANTONYA DO [facility] 02-26-2022 10:43-0400 Body weight 65.5 kg Zach Garg MD Work Phone: [facility] Encounters Encounter Date Encounter Type Care Provider Facility Start: 09-25-2023 End: 09-25-2023 Emergency department patient visit FARHAT COWART DO Facility:B Start: 09-25-2023 End: 09-25-2023 Emergency department patient visit FARHAT COWART DO [facility] Start: 02-26-2022 End: 02-26-2022 Subsequent hospital visit by physician Zach Garg MD Work Phone: [facility] Procedures Date Procedure Procedure Detail Performing Clinician Start: 02-26-2022 Mri abdomen w/o & w/contrast material Zach Garg MD Work Phone: Plan of Treatment Date Care Activity Detail Author Start: 04-10-2022 COVID-19 (3 - Booste r for Moderna series) COVID-19 (3 - Booster for Moderna series) [facility] Start: 2019 Microscopic observat ion [Identifier] in Cervix by Cyto stain Pap Smear [facility] Start: 2014 MenB (1 of 2 - MenB 2-Dose Series) MenB (1 of 2 - MenB 2-Dose Series) [facility] Start: 2009 HPV (1 - 2-dose series) HPV (1 - 2-d ose series) [facility] Start: 2005 Tetanus Diphtheria a nd Pertussis Vaccines (1 - Tdap) Tetanus Diphtheria and Pertussis Vaccines (1 - Tdap) [facility] Start: 1999 MMR (1 of 1 - Standa rd series) MMR (1 of 1 - Standard series) [facility] Start: 1999 Varicella (1 of 2 - 2-dose childhood series) Varicella (1 of 2 - 2-dose childhood series) [facility] Immunizations Immunization Date Immunization Notes Care Provider Fa hansty 07-24-2018 influenza virus vacc ine, unspecified formulation NIDAL CHOUJAA DO [facility] 03-21-2016 meningococcal polysaccharide (groups A, C, Y and W-135) diphtheria toxoid conjugate vaccine (MCV4P) NIDAL CHOUJAA DO [facility] 06-21-2011 tetanus toxoid, redu christopher diphtheria toxoid, and acellular pertussis vaccine, adsorbed NIDAL CHOUJAA DO [facility] 12-16-2009 Human Papillomavirus Quadval NIDAL CHOUJAA DO [facility] 08-16-2009 Human Papillomavirus Quadval NIDAL CHOUJAA DO [facility] 06-10-2009 Human Papillomavirus Quadval NIDAL CHOUJAA DO [facility] 03-30-2003 measles/mumps/rubell a virus vaccine NIDAL CHOUJAA DO [facility] 02-15-2003 diphtheria, tetanus toxoids and acellular pertussis vaccine, unspecified formulation NIDAL CHOUJAA DO [facility] 02-15-2003 poliovirus vaccine, inactivated NIDAL CHOUJAA DO [facility] 07-09-2001 diphtheria, tetanus toxoids and acellular pertussis vaccine, unspecified formulation NIDAL CHOUJAA DO [facility] 07-09-2001 haemophilus influenz ae type b vaccine, PRP-T conjugate NIDAL CHOUJAA DO [facility] 07-09-2001 poliovirus vaccine, inactivated NIDAL CHOUJAA DO [facility] 12-25-1999 measles/mumps/rubell a virus vaccine NIDAL CHOUJAA DO [facility] 04-21-1999 hepatitis B pediatri c vaccine NIDAL CHOUJAA DO [facility] 1998 diphtheria, tetanus toxoids and acellular pertussis vaccine, unspecified formulation NIDAL CHOUJAA DO [facility] 1998 haemophilus influenz ae type b vaccine, PRP-T conjugate NIDAL CHOUJAA DO [facility] 1998 diphtheria, tetanus toxoids and acellular pertussis vaccine, unspecified formulation NIDAL CHOUJAA DO [facility] 1998 haemophilus influenz ae type b vaccine, PRP-T conjugate NIDAL CHOUJAA DO [facility] 1998 poliovirus vaccine, inactivated NIDAL CHOUJAA DO [facility] 1998 diphtheria, tetanus toxoids and acellular pertussis vaccine, unspecified formulation NIDAL CHOUJAA DO [facility] 1998 haemophilus influenz ae type b vaccine, PRP-T conjugate NIDAL CHOUJAA DO [facility] 1998 hepatitis B pediatri c vaccine NIDAL CHOUJAA DO [facility] 1998 poliovirus vaccine, inactivated [facility] 1998 hepatitis B pediatri c vaccine [facility] Payers Date Payer Category Payer Unknown [id number] 2012 Unknown [employer] [facility] SU[employer] PPO [id number] 2012-Present [address] [place] [address] [id number] 1998 Unknown [id number] Social History Date Type Detail Facility Tobacco smoking stat [facility] Tobacco smoking consumption unknown [facility] Start: 1998 Sex Assigned At Not on file A [facility] Start: 02-16-2022 End: 02-26-2022 Exposure to SARS-CoV-2 (event) Not sure [facility] Start: 09-01-2019 Tobacco smoking status Never s moked tobacco (finding) [facility] Sex Assigned At Female [facility] Functional Status Date Assessment Result Facility 09-25-2023 Functional Status Standard Safet y ID band on, Call device within reach, Bed in low position, Wheels locked [facility] Mental Status Date Assessment Result Facility 09-25-2023 Mental Status Orientation Oriented x 4 [facility] Discharge instructions 09-25-2023 Note Date & Type Note Facility 09-25-2023 Hospital Discharg e instructions Patient Education 09/25/2023 19:04:37 Viral Syndrome (Adult) Viral Syndrome (Adult) A viral illness may cause a number of symptoms such as fever. Other symptoms depend on the part of the body that the virus affects. If it settles in your nose, throat, and lungs, it may cause cough, sore throat, congestion, runny nose, headache, earache and other ear symptoms, or shortness of breath. If it settles in your stomach and intestinal tract, it may cause nausea, vomiting, cramping, and diarrhea. Sometimes it causes generalized symptoms like aching all over, feeling tired, loss of energy, or loss of appetite. A viral illness usually lasts anywhere from several days to several weeks, but sometimes it lasts longer. In some cases, a more serious infection can look like a viral syndrome in the first few days of the illness. You may need another exam and additional tests to know the difference. Watch for the warning signs listed below for when to seek medical advice. Home care Follow these guidelines for taking care of yourself at home: If symptoms are severe, rest at home for the first 2 to 3 days. Stay away from cigarette smoke - both your smoke and the smoke from others. You may use [id number] acetaminophen or ibuprofen for fever, muscle aching, and headache, unless another medicine was prescribed for this. If you have chronic liver or kidney disease or ever had a stomach ulcer or gastrointestinal bleeding, talk with your healthcare provider before using these medicines. No one who is younger than 18 and ill with a fever should take aspirin. It may cause severe disease or . Your appetite may be poor, so a light diet is fine. Avoid dehydration by drinking 8 to 12, 8-ounce glasses of fluids each day. This may include water; orange juice; lemonade; apple, grape, and cranberry juice; clear fruit drinks; electrolyte replacement and sports drinks; and decaffeinated teas and coffee. If you have been diagnosed with a kidney disease, ask your healthcare provider how much and what types of fluids you should drink to prevent dehydration. If you have kidney disease, drinking too much fluid can cause it build up in the your body and be dangerous to your health. Nyyk-msz-bqxggga remedies won't shorten the length of the illness but may be helpful for symptoms such as cough, sore throat, nasal and sinus congestion, or diarrhea. Don't use decongestants if you have high blood pressure. Follow-up care Follow up with your healthcare provider if you do not improve over the next week. Call 911 Call 911 if any of the following occur: Convulsion Feeling weak, dizzy, or like you are going to faint Chest pain, or more than mild shortness of breath When to seek medical advice Call your healthcare provider right away if any of these occur: Cough with lots of colored sputum (mucus) or blood in your sputum Chest pain, shortness of breath, wheezing, or trouble breathing Severe headache; face, neck, or ear pain Severe, constant pain in the lower right side of your belly (abdominal) Continued vomiting (can t keep liquids down) Frequent diarrhea (more than 5 times a day); blood (red or black color) or mucus in diarrhea Feeling weak, dizzy, or like you are going to faint Extreme thirst Fever of 100.4 F (38 C) or higher, or as directed by your healthcare provider [phone] [employer]. [address] [place] [address]. All rights reserved. This information is not intended as a substitute for professional medical care. Always follow your healthcare professional's instructions. Follow Up Care 09/25/2023 17:16:57 With:JONATHAN ROMO DO Address: [address] [place] [address] [place] [address]- [phone] When:2-4 days [facility] Clinical Note 09-25-2023 Note Date & Type Note Facility 09-25-2023 Note Discharge Instructions Thank you for allowing [facility] to assist you with your healthcare needs. The following is important discharge information regarding your hospital visit. Diagnosis from Today's Visit Chest pain - Pleuritic Musculoskeletal chest pain Musculoskeletal neck pain Viral syndrome What to Do Next Instructions from Your Care Team Follow-up with your primary care doctor. You can always call us for results regarding your flu COVID and RSV swabs Discharge Return to Work, School, or Sports (Return to Work, School, or Sports) - Ordered -- 09/26/23, May return to: work, 09/25/23 19:04:00 EST Post Acute Orders No qualifying data available. You Need to Schedule the Following Appointments Follow Up with JONATHAN ROMO DO When Within 2-4 days [facility] [place] [address]- [phone] Allergies NKA Medications Please ask your primary doctor or pharmacist before taking any other medication not listed, including over the counter drugs, herbal medications, vitamins and or supplements as they may interact with your home medications. What How Much When Why Instructions Last Dose New naproxen (naproxen 250 mg oral tablet) 1 tab(s) by mouth Two (2) times a day Duration: 7 Days Printed Prescription Unchanged dicyclomine (dicyclomine 10 mg oral capsule) 2 cap by mouth Four (4) times a day as needed for abdominal discomfort Unchanged ferrous sulfate (ferrous sulfate 325 mg (65 mg elemental iron) oral delayed release tablet) 1 tab(s) by mouth Once a day Unchanged LORazepam (LORazepam 0.5 mg oral tablet) See instructions Fear of flying 1 tab(s) Oral 30 minutes prior to flight as needed for flight anxiety Unchanged sertraline (sertraline 50 mg oral tablet) 1 tab(s) by mouth Once a day Please take this list to your next doctor s visit. Bring all medications you take, including over the counter medications, herbals and other supplements with you to your doctor s visit. Patients and families are reminded to discard old lists and to update any records with all medication providers or retail pharmacies. Medication Leaflets naproxen (na PROX en) Aleve, Aleve Back and Muscle Pain, Aleve Easy Open Arthritis, Aleve Liquid Gels, Anaprox-DS, EC-Naprosyn, Naprelan, Naprosyn What is the most important information I should know about naproxen? Naproxen can increase your risk of fatal heart attack or stroke. Do not use this medicine just before or after heart bypass surgery (coronary artery bypass graft, or CABG). Naproxen may also cause stomach or intestinal bleeding, which can be fatal. What is naproxen? Naproxen is a nonsteroidal anti-inflammatory drug (NSAID). Naproxen is used to treat pain or inflammation caused by conditions such as arthritis, ankylosing spondylitis, tendinitis, bursitis, gout, or menstrual cramps. The delayed-release or extended-release tablets are slower-acting forms of naproxen that are used only for treating chronic conditions such as arthritis or ankylosing spondylitis. These forms of naproxen will not work fast enough to treat acute pain. Naproxen may also be used for purposes not listed in this medication guide. What should I discuss with my healthcare provider before taking naproxen? Naproxen can increase your risk of fatal heart attack or stroke, even if you don't have any risk factors. Do not use this medicine just before or after heart bypass surgery (coronary artery bypass graft, or CABG). Naproxen may also cause stomach or intestinal bleeding, which can be fatal. These conditions can occur without warning while you are using naproxen, especially in older adults. You should not use naproxen if you are allergic to it, or if you have ever had an asthma attack or severe allergic reaction after taking aspirin or an NSAID. Ask a doctor before giving naproxen to a child younger than 12 years old. Ask a doctor or pharmacist if this medicine is safe to use if you have: heart disease, high blood pressure, high cholesterol, diabetes, or if you smoke; a heart attack, stroke, or blood clot; stomach ulcers or bleeding; asthma; liver or kidney disease; fluid retention; or if you take aspirin to prevent heart attack or stroke. If you are , you should not take naproxen unless your doctor tells you to. Taking an NSAID during the last 20 weeks of can cause serious heart or kidney problems in the unborn baby and possible complications with your . It may not be safe to breastfeed while using this medicine. Ask your doctor about any risk. How should I take naproxen? Use exactly as directed on the label, or as prescribed by your doctor. Use the lowest dose that is effective in treating your condition. Shake the oral suspension (liquid) before you measure a dose. Measure a dose with the supplied measuring device (not a kitchen spoon). Take this medicine with food or milk if it upsets your stomach. Always follow directions on the medicine label about giving this medicine to a child. Naproxen doses are based on weight in children. Your child's dose needs may change if the child gains or loses weight. If you use naproxen long-term, you may need frequent medical tests. This medicine can affect the results of certain medical tests. Tell any doctor who treats you that you are using naproxen. Store at room temperature away from moisture, heat, and light. Keep the bottle tightly closed when not in use. What happens if I miss a dose? Since naproxen is used when needed, you may not be on a dosing schedule. Skip any missed dose if it's almost time for your next dose. Do not use two doses at one time. What happens if I overdose? Seek emergency medical attention or call the Poison Help line at . What should I avoid while taking naproxen? Avoid drinking alcohol. It may increase your risk of stomach bleeding. Avoid taking aspirin or other NSAIDs unless your doctor tells you to. Ask a doctor or pharmacist before using other medicines for pain, fever, swelling, or cold/flu symptoms. They may contain ingredients similar to naproxen (such as aspirin, ibuprofen, or ketoprofen). Ask your doctor before using an antacid, and use only the type your doctor recommends. Some antacids can make it harder for your body to absorb naproxen. What are the possible side effects of naproxen? Get emergency medical help if you have signs of an allergic reaction (runny or stuffy nose, wheezing or trouble breathing, hives, swelling in your face or throat) or a severe skin reaction (fever, sore throat, burning eyes, skin pain, red or purple skin rash with blistering and peeling). Stop using naproxen and seek medical treatment if you have a serious drug reaction that can affect many parts of your body. Symptoms may include skin rash, fever, swollen glands, muscle aches, severe weakness, unusual bruising, or yellowing of your skin or eyes. Get emergency medical help if you have signs of a heart attack or stroke: chest pain spreading to your jaw or shoulder, sudden numbness or weakness on one side of the body, slurred speech, leg swelling, feeling short of breath. Stop using naproxen and call your doctor at once if you have: shortness of breath (even with mild exertion); swelling or rapid weight gain; the first sign of any skin rash or blister, no matter how mild; signs of stomach bleeding--bloody or tarry stools, coughing up blood or vomit that looks like coffee grounds; liver problems--nausea, upper stomach pain, loss of appetite, dark urine, shagufta-colored stools, jaundice (yellowing of the skin or eyes); kidney problems--little or no urination, painful urination, swelling in your feet or ankles; or low red blood cells (anemia)--pale skin, unusual tiredness, feeling light-headed or short of breath, cold hands and feet. Common side effects may include: headache; indigestion, heartburn, stomach pain; or flu symptoms; This is not a complete list of side effects and others may occur. Call your doctor for medical advice about side effects. You may report side effects to FDA at 0-417-BGP-2436. What other drugs will affect naproxen? Ask your doctor before using naproxen if you take an antidepressant. Taking certain antidepressants with an NSAID may cause you to bruise or bleed easily. Ask a doctor or pharmacist before using naproxen with any other medications, especially: other NSAIDs or salicylates (diflunisal, salsalate); antacids and sucralfate; cholestyramine; cyclosporine; digoxin; lithium; methotrexate; pemetrexed; probenecid; warfarin (Coumadin, Jantoven) or similar blood thinners; a diuretic or 'water pill'; or heart or blood pressure medication. This list is not complete. Other drugs may affect naproxen, including prescription and mwyn-jie-sdbfciv medicines, vitamins, and herbal products. Not all possible drug interactions are listed here. Where can I get more information? Your pharmacist can provide more information about naproxen. Remember, keep this and all other medicines out of the reach of children, never share your medicines with others, and use this medication only for the indication prescribed. Every effort has been made to ensure that the information provided by [employer]. [employer]') is accurate, up-to-date, and complete, but no guarantee is made to that effect. Drug information contained herein may be time sensitive. [employer] information has been compiled for use by healthcare practitioners and consumers in the [place] and therefore [employer] does not warrant that uses outside of the [place] are appropriate, unless specifically indicated otherwise. [employer]'s drug information does not endorse drugs, diagnose patients or recommend therapy. [facility]'s drug information is an informational resource designed to assist licensed healthcare practitioners in caring for their patients and/or to serve consumers viewing this service as a supplement to, and not a substitute for, the expertise, skill, knowledge and judgment of healthcare practitioners. The absence of a warning for a given drug or drug combination in no way should be construed to indicate that the drug or drug combination is safe, effective or appropriate for any given patient. [facility] does not assume any responsibility for any aspect of healthcare administered with the aid of information [facility] provides. The information contained herein is not intended to cover all possible uses, directions, precautions, warnings, drug interactions, allergic reactions, or adverse effects. If you have questions about the drugs you are taking, check with your doctor, nurse or pharmacist. Copyright [id number] [facility] [employer]. Version: .. Revision Date: 06/06/2023. Education Materials Viral Syndrome (Adult) A viral illness may cause a number of symptoms such as fever. Other symptoms depend on the part of the body that the virus affects. If it settles in your nose, throat, and lungs, it may cause cough, sore throat, congestion, runny nose, headache, earache and other ear symptoms, or shortness of breath. If it settles in your stomach and intestinal tract, it may cause nausea, vomiting, cramping, and diarrhea. Sometimes it causes generalized symptoms like aching all over, feeling tired, loss of energy, or loss of appetite. A viral illness usually lasts anywhere from several days to several weeks, but sometimes it lasts longer. In some cases, a more serious infection can look like a viral syndrome in the first few days of the illness. You may need another exam and additional tests to know the difference. Watch for the warning signs listed below for when to seek medical advice. Home care Follow these guidelines for taking care of yourself at home: If symptoms are severe, rest at home for the first 2 to 3 days. Stay away from cigarette smoke - both your smoke and the smoke from others. You may use qfol-app-dgkedhm acetaminophen or ibuprofen for fever, muscle aching, and headache, unless another medicine was prescribed for this. If you have chronic liver or kidney disease or ever had a stomach ulcer or gastrointestinal bleeding, talk with your healthcare provider before using these medicines. No one who is younger than 18 and ill with a fever should take aspirin. It may cause severe disease or . Your appetite may be poor, so a light diet is fine. Avoid dehydration by drinking 8 to 12, 8-ounce glasses of fluids each day. This may include water; orange juice; lemonade; apple, grape, and cranberry juice; clear fruit drinks; electrolyte replacement and sports drinks; and decaffeinated teas and coffee. If you have been diagnosed with a kidney disease, ask your healthcare provider how much and what types of fluids you should drink to prevent dehydration. If you have kidney disease, drinking too much fluid can cause it build up in the your body and be dangerous to your health. Rztf-kzm-iacmfrc remedies won't shorten the length of the illness but may be helpful for symptoms such as cough, sore throat, nasal and sinus congestion, or diarrhea. Don't use decongestants if you have high blood pressure. Follow-up care Follow up with your healthcare provider if you do not improve over the next week. Call 911 Call 911 if any of the following occur: Convulsion Feeling weak, dizzy, or like you are going to faint Chest pain, or more than mild shortness of breath When to seek medical advice Call your healthcare provider right away if any of these occur: Cough with lots of colored sputum (mucus) or blood in your sputum Chest pain, shortness of breath, wheezing, or trouble breathing Severe headache; face, neck, or ear pain Severe, constant pain in the lower right side of your belly (abdominal) Continued vomiting (can t keep liquids down) Frequent diarrhea (more than 5 times a day); blood (red or black color) or mucus in diarrhea Feeling weak, dizzy, or like you are going to faint Extreme thirst Fever of 100.4 F (38 C) or higher, or as directed by your healthcare provider [id number] [employer]. [address] [place] [address], [place] [address]. All rights reserved. This information is not intended as a substitute for professional medical care. Always follow your healthcare professional's instructions. Additional Information VACCINATE! IT SAVES LIVES! Members of the community who have not yet received the COVID-19 vaccine and would like to receive it can visit one of [facility] vaccine clinics. There are many vaccine clinic locations within the State. For locations and available times, please visit www.gettheshot.coronavirus.[place].gov/. It is important to note that some COVID mobile vaccine clinics are held outdoors and may be canceled in rainy or stormy conditions. To learn more about pediatric vaccinations (ages 5-11), we invite you to visit the [facility] webpage. [email or web address]/[email or web address]-Frequently-[email or web address] -Questions.html To learn more about the COVID-19 vaccine, we invite you to visit the CDC website for a list of frequently asked questions. https://www.cdc.gov/coronavirus/2019-n cov/vaccines/faq.html [facility] Patient Portal Access Instructions: Stay connected with your healthcare team and access your personal medical information anytime with the [facility] Patient Portal. If you would like a full copy of your medical records please contact the [facility] Medical Records Department Saturday through Saturday between 8a.m. and 4:30p.m. Please follow the directions below to access the portal: 1.Access the email account you provided upon registration to the hospital.2.Look for an invitation email from [facility].3.Open the email and access the invitation link: Accept Invitation to [facility].Fill in the required colbert to create your account. Sign into [email or web address] with your username and password that you created in the above steps to stay up to date. You can then view a summary of results, a summary of your visits, and the ability to download your summaries to your computer or send the information securely to a physician. Remember that your healthcare information is confidential, so carefully consider who you will allow to register on the [facility] Patient Portal for access to your information. You can also access the [facility] Patient Portal on the [employer]. Simply click on Health Records under Health Data and then click on the [employer] logo. HOW TO SAFELY DISPOSE OF PRESCRIPTION MEDICATIONS Please use one of the following methods to safely dispose of your unused medications. 1.Use a drug disposal kit: the drug disposal pouch allows you to safely discard your old and unused drugs. Ask your nurse to give you one when you are discharged.2.Visit a local take-back location: Many local pharmacies and police departments have programs that collect old and unwanted prescription drugs. Call your local pharmacy or go to http://[employer].Miradia/7F3Xw3h to find one close to you.3.Make use of household items: Use cat litter or old coffee grounds to dispose medications if other options are not available. Mix your drugs with these household products, seal them in an airtight container and throw it into the garbage. Call [facility]: [phone] to be sure your drugs can be disposed of in this way. Some medicines may require a different approach.4.Never flush your medications down the toilet. IF YOU HAVE BEEN PRESCRIBED AN OPIOIDS FOR PAIN If you have been prescribed an opioid (such as hydrocodone, oxycodone or morphine), it is critical to understand the possible side effects and risks of opioid pain medications. Even when taken as directed, opioids can have several side effects including: Tolerance, meaning you might need to take more of a medication for the same pain relief. Nausea, vomiting and/or constipation. Sleepiness, dizziness, dry mouth, confusion, depression or itching. Physical dependence, meaning you have withdrawal symptoms when a medication is stopped ? this can develop within a few days. KNOW YOUR RESPONSIBILITIES It is important to know exactly how much and how often to take the opioid pain medications you are prescribed. Never take opioids in higher amounts or more often than prescribed. Do not combine opioids with alcohol or other drugs that cause drowsiness, such as benzodiazepines, also known as benzos, including diazepam and alprazolam, muscle relaxants or sleep aids. Never sell or share prescription opioids. This is illegal. Store opioids in a secure place and out of reach of others (including children, family, friends and visitors). The last page(s) of this document has been signed and retained as a CHART COPY Signatures Patient Education Materials Viral Syndrome (Adult) Medication Leaflets naproxen My discharge plan and instructions have been reviewed and explained to me and IDAYNA MONICA R understand my current condition and have read and understand these discharge instructions. I have received a written copy of the plan/instructions. If I have questions, I am aware that I should contact my doctor. Patient/Gravity Manager Signature: _ Date/Time: Relationship to Patient: Witness Name/Signature: Date/Time: [facility] Clinical Note 09-25-2023 Note Date & Type Note Facility 09-25-2023 Note ORIGINAL EXAMINATION: ONE XRAY VIEW OF THE CHEST09/25/2023 6:22 pm CHEST ONE VIEW AP/PA COMPARISON: None HISTORY: ORDERING SYSTEM PROVIDED HISTORY: Reason for Exam: chest pain FINDINGS: The cardiomediastinal contours are normal. There is no focal consolidation, pleural effusion, or pneumothorax. No acute osseous abnormality. IMPRESSION: No acute radiographic findings. Interpreted by: Emile Bolton MD Preliminary Report By: Emile Bolton MD Electronically signed By Emile Bolton MD Dictated Date: 09/25/2023 6:27:19 PM Prelim Date: 09/25/2023 6:28:46 PM Sign Date: 09/25/2023 6:28:46 PM Ordering Provider: FARHAT COWART [facility] SARS-CoV-2 (COVID-19) RNA USAMA+probe Ql (Nph) 09-25-2023 Note Date & Type Note Facility 09-25-2023 SARS-CoV-2 (COVID -19) RNA USAMA+probe Ql (Nph) Negative *NA* (09/25/23 6:05 PM) AO Auto Urine SS Clinical Note 09-25-2023 Note Date & Type Note Facility 09-25-2023 Note Sinus rhythm EKG interpretation is noted and agreed to in [employer]. The interpretation of this patient's EKG contributed directly to the care and management of this patient. Electronic Signature: FARHAT COWART DO 09/25/2023 17:36:32 [facility] Evaluation + Plan note Note Date & Type Note Facility Evaluation + Plan note No data available for this section [facility] Evaluation note Note Date & Type Note Facility documented in this encounter [facility] Summary Purpose Family History No Family History Records FoundNo Family History Records FoundNo Family History Records Found No data available for this section No Family History Records Found Advance Directives No Advanced Directives Records FoundDocuments on File Type Date Recorded 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 Reason for Referral Specialty Diagnoses / Procedures Referred By Contac t Referred To Contact Radiology Diagnoses Liver lesion Procedures MRI Abdomen With and Without Contrast Zach Garg MD [address] [place] [address] Referral ID Status Reason Start Date Expiration Date Visits Re quested Visits Authorized [id number] Closed 01/23/2022 03/09/2022 1 1 Additional Source Comments INFORMATION SOURCE (unrecogn ized section and content) DATE CREATED AUTHOR AUTHOR'S ORGANIZ ATION 06/24/2021 [facility] DATE CREATED AUTHOR AUTHOR'S ORGANIZ ATION 02/27/2022 [facility] DATE CREATED AUTHOR AUTHOR'S ORGANIZ ATION 10/04/2023 [facility] ([place]) Reason for Visit (unrecogniz ed section and content) Referral ID Status Reason Start Date Expiration Date Visits Re quested Visits Authorized [id number] Closed 01/23/2022 03/09/2022 1 1 Care Teams (unrecognized sec tion and content) FOR RECORDS PERTAINING TO PATIENTS WHO ARE OR HAVE BEEN ENROLLED IN A CHEMICAL DEPENDENCY/SUBSTANCEABUSE PROGRAM, SOME INFORMATION MAY BE OMITTED. This clinical summary was aggregated from multiple sources. Caution should be exercised in using it in the provision of clinical care. This summary normalizes information from multiple sources, and as a consequence, information in this document may materially change the coding, format and clinical context of patient data. In addition, data may be omitted in some cases. CLINICAL DECISIONS SHOULD BE BASED ON THE PRIMARY CLINICAL RECORDS. [employer] provides no warranty or guarantee of the accuracy or completeness of information in this document.
== END | disposition home or self-care (01) ==
LOC: LABSPEC 13:37
PROVIDERS: PCP Family Medicine; Visit Provider Advanced Practice Midwife
DX: R30.0 Dysuria (principal)
CPT/HCPCS: 87086; 87088

== ENCOUNTER → 2024-03-06 | Outpatient (CLI) | payer OTHER, SELFPAY ==
[2024-03-06 15:37] LABS: Absolute Neutrophil Count 5.9 X10^3/uL (2.0-7.7); Basophil# 0.02 X10^3/uL; Basophil% 0.3 % (0-1); Eosinophil# 0.07 X10^3/uL; Eosinophils% 0.9 % (0-5); Hematocrit 32.9 % (37-47); Hemoglobin 11.1 g/dL (12.0-15.0); Mean Corp Hgb Conc 33.7 g/dL (32-36); Mean Corpuscular Hgb 29.1 pg (27.0-32.0); Mean Corpuscular Volume 86.1 fL (81-99); Mean Platelet Vol. 10.9 fl (6.2-12.0); Monocyte# 0.27 X10^3/uL; Monocyte% 3.6 % (0-10); NRBC Flagged by Analyzer 0 % (0-5); Neutrophil % 78.9 % (47-70); Platelet Count 216 K/mm3 (150-450); RBC Distribution Width CV 13.8 % (11.6-14.6); RBC Distribution Width SD 43.2 fl (35.1-43.9); Red Blood Count 3.82 M/mm3 (4.2-5.4); White Blood Count 7.5 K/mm3 (4.4-11.0)
[2024-03-06 16:12] LABS: Glucose Challenge Gest 1H 50g 148 mg/dL (70-140)
[2024-03-06 17:38] LABS: HIV - WCH Non-Reactive (Nonreactive); Syphilis Antibodies Non-reactive
== END | disposition home or self-care (01) ==
LOC: LAB 14:48
PROVIDERS: PCP Family Medicine; Referring Provider Obstetrics & Gynecology; Visit Provider Obstetrics & Gynecology
DX: Z34.90 Encounter for supervision of normal pregnancy, unspecified, unspecified trimester (principal); Z3A.00 Weeks of gestation of pregnancy not specified
CPT/HCPCS: 36415; 82950; 85025; 86703; 86780

== ENCOUNTER → 2024-03-12 | Outpatient (CLI) | payer OTHER, SELFPAY ==
[2024-03-12 08:08] LABS: Glucose GTT-Gestation. Fasting 87 mg/dL (<105)
[2024-03-12 09:07] LABS: Glucose GTT-Gestational 1 Hr 112 mg/dL (<190)
[2024-03-12 10:39] LABS: Glucose GTT-Gestational 2 Hr 90 mg/dL (<165)
[2024-03-12 11:40] LABS: Glucose GTT-Gestational 3 Hr 63 L (<145)
== END | disposition home or self-care (01) ==
LOC: LAB 07:00
PROVIDERS: PCP Family Medicine; Referring Provider Obstetrics & Gynecology; Visit Provider Obstetrics & Gynecology
DX: Z13.1 Encounter for screening for diabetes mellitus (principal)
CPT/HCPCS: 36415; 82951; 82952

== ENCOUNTER 2024-03-28 04:41 | Emergency (ER) | payer OTHER, SELFPAY ==
[2024-03-28 04:42] VITALS: BP 115/81; PULSE 83; RESP 16; TEMP 36.3; O2SAT 99; BMI 27.1
[2024-03-28 05:13] LABS: Basophil# 0.03 X10^3/uL; Basophil% 0.4 % (0-1); Eosinophil# 0.14 X10^3/uL; Hematocrit 34.8 % (37-47); Hemoglobin 11.4 g/dL (12.0-15.0); Lymphocyte % 21.2 % (19-41); Mean Corp Hgb Conc 32.8 g/dL (32-36); Mean Corpuscular Hgb 28.5 pg (27.0-32.0); Mean Platelet Vol. 10.5 fl (6.2-12.0); Monocyte# 0.43 X10^3/uL; Monocyte% 6.1 % (0-10); NRBC Flagged by Analyzer 0 % (0-5); Neutrophil # 4.96 X10^3/uL (2.7-7.7); Neutrophil % 69.9 % (47-70); Platelet Count 210 K/mm3 (150-450); RBC Distribution Width CV 13.5 % (11.6-14.6); RBC Distribution Width SD 42.2 fl (35.1-43.9); White Blood Count 7.1 K/mm3 (4.4-11.0)
[2024-03-28] MEDS: Metoclopramide 10 MG/2 ML Vial IV (05:18)
[2024-03-28] MEDS: DiphenhydrAMINE 50 MG/ML Syringe 25 MG IV ×2 (05:19→06:06)
[2024-03-28] MEDS: 0.9% Normal Saline (1000mL) 1,000 ML 999 ML IV (05:19)
[2024-03-28 05:30] LABS: AST(SGOT) 17 U/L (15-37); Alanine Aminotransfer ALT/SGPT 14 U/L (13-56); Albumin, Serum 2.9 g/dL (3.2-5.0); Alkaline Phosphatase 84 U/L (45-117); Anion Gap 5 (5-15); BUN 9 mg/dL (7-18); BUN/Creat Ratio 15.8 RATIO (10-20); Bilirubin, Direct 0.13 mg/dL (0.00-0.30); Calcium,Total 9.1 mg/dL (8.5-10.1); Chloride 107 mmol/L (98-107); Creatinine, Serum 0.57 mg/dL (0.55-1.02); EST Glomerular Filtration Rate 136 mL/min (>60); Est Glom Filt Rate - Afr Amer 165 mL/min (>60); Estimated Creatinine Clearance 146.67 ml/min; Glucose 82 mg/dL (74-106); Magnesium 2.1 mg/dL (1.6-2.6); Potassium 3.8 mmol/L (3.5-5.1); Protein, Total 6.9 g/dL (6.4-8.2); Sodium Level 137 mmol/L (136-145)
[2024-03-28] MEDS: Acetaminophen 500 MG Tablet 1000 MG PO (06:06)
[2024-03-28] MEDS: MethylPREDNISolone 125 MG/2 ML Vial IV (06:06)
--- NOTE | 2024-03-28 06:53 | EDS_ITS ---
HPI History of Present Illness Chief Complaint: Headache Informant: patient and spouse/S.O. Narrative Narrative: Patient is a 23-year-old female who is a G1, P0 approximately 30 weeks . She received a Tdap vaccination in her left arm earlier today and now states she has got pain and spasm of her left shoulder that extends towards her neck and left side of her head and is causing her to have a headache. She denies any recent trauma. She denies any vaginal bleeding or discharge. She states she contacted her OB and secondary to the atypical symptoms associated with the vaccination and her headache she was advised to come in for evaluation [facility] Medical History Abnormal glucose affecting Seasonal allergies Liver tumor Anemia Acid reflux IBS (irritable bowel syndrome) Fatigue Asthma Home Medications ?Medication ?Instructions ?Recorded ?Last Taken ?Type albuterol sulfate 90 mcg/actuation 2 puff inhalation Q4H PRN asthma 12/23/20 Unknown History aerosol inhaler azelaic acid 15 % topical gel 1 applic topical BID 05/09/23 Unknown History ondansetron 4 mg disintegrating 4 mg PO Q8H PRN nausea and 11/11/23 Unknown Rx tablet vomiting #30 tabs aspirin 81 mg tablet,delayed 81 mg PO DAILY 12/02/23 Unknown History release Allergy/AdvReac Type Severity Reaction Status Date / Time almond Allergy Severe Anaphylaxis Verified 03/28/24 04:47 Family History Mother Breast cancer 20s Cervical cancer Hypertension Aunt Breast cancer 30s Grandmother Diabetes Hypertension Sister History of recurrent miscarriages Surgical History H/O left breast biopsy Hx of wisdom tooth extraction Social History adopted: No household members: family current occupational status: employed 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 [employer] current occupational exposures/hazards: No pets and animals: Yes pets and animals: cat(s) history of recent travel: Yes (- September) out of state: Yes out of country: No sexually active: Yes Smoking Status: Never smoker second hand exposure: No alcohol intake: current alcohol intake frequency: holidays/special occasions only details: not while substance use type: does not use well-balanced diet: about half the time caffeine: Yes Type: coffee Number of servings: 1 eating out: 1-3 times/week during the past year weight has: decreased > 10 lbs what type of physical activity do you participate in: none price/yazidism: Hindu seatbelt use: always do you feel safe at home: Yes additional social history: Jenifer Larsen's- [facility] ROS ROS ED Constitutional Constitutional ED: Denies chills or fever(s) Eyes Eyes: Reports other Details: Positive photophobia ENT ENT ED: Denies sore throat Cardiovascular Cardiovascular: Denies chest pain Respiratory/Chest Respiratory/Chest: Denies cough or dyspnea Gastrointestinal Gastrointestinal: Reports abdominal pain and nausea; Denies diarrhea or vomiting Genitourinary Genitourinary ED: Reports urinary frequency and other Details: Patient denies vaginal bleeding or discharge ; Denies dysuria or hematuria Musculoskeletal Musculoskeletal: Reports neck pain; Denies myalgias Integumentary Denies rash Neurologic Neurologic: Reports headache(s) and paresthesias; Denies weakness Hematologic/Lymphatic Hematologic/Lymphatic: Denies easy bleeding or easy bruising EXAM Physical Exam Const Vital Signs: 03/28/24 04:42 03/28/24 06:56 Temperature 97.4 F L 98.0 F Temperature Source Temporal Pulse Rate 83 83 Respiratory Rate 16 16 Blood Pressure 115/81 H 109/70 Blood Pressure Mean 92 83 Pulse Ox 99 98 Oxygen Delivery Method Room Air Positive well nourished and well developed General Appearance ED: well developed HEENT Reports moist mucous membranes HEENT Narrative: Normocephalic atraumatic No signs of infection noted in the posterior pharynx Eyes PERRL and EOMs intact bilaterally Neck supple Neck Narrative: No bony deformity or step-off of the cervical spine no midline tenderness to palpation There is left sided paracervical tension and spasm noted that worsens with sidebending and rotation No nuchal rigidity or meningeal signs Resp normal respiratory effort and clear to auscultation bilaterally Cardio regular rate and regular rhythm Rate: other Other Details: Heart is regular rate and rhythm without murmurs rubs or gallops Radial and carotid pulses equal and symmetric GI GI Narrative: Abdomen is gravid with fundus consistent with her reported gestational age There is mild diffuse upper abdominal pain on palpation without voluntary guarding or rigidity Back/Spine no CVA tenderness Extremity Extremity Narrative: Patient has mild soft tissue swelling and faint erythema and warmth of the left lateral shoulder consistent with her recent injection. There is tenderness to palpation at the site. There is tenderness and spasm noted along the left SCM and left trapezius muscle belly as well Negative Homans' sign bilaterally of the lower extremities Neuro oriented x3, CN's II-XII intact bilaterally and no sensory deficits noted Neuro Narrative: Cranial nerves II through XII are grossly intact without focal neurologic deficit No pronator drift no dysmetria no truncal ataxia NIH stroke scale score of 0 Sensorium / Orientation: alert Motor Exam: strength 5/5 throughout Psych mental status grossly normal Skin Skin Narrative: Soft tissue changes along the left lateral shoulder consistent with recent injection otherwise normal MDM MDM MDM Narrative Medical decision making narrative: Patient arrived to the ER with stable vitals going against infectious or preeclamptic causes of her symptoms. And she has had a recent injection there is concern that she is having an adverse medication event but as she also has upper abdominal discomfort there is concern for potential help syndrome. Neurologic exam is normal she does not have nuchal rigidity so my concern for meningitis or a spontaneous bleed is low and I do not feel there is need for head CT. Basic blood work was obtained which showed no findings for help syndrome and no obvious findings suggest infectious process. As her symptoms seem to be secondary to an adverse medication reaction leading to muscle tension and spasm she was given Reglan and Benadryl and Tylenol. After giving this the patient did report resolution of symptoms. On reevaluation her vitals remained stable and neurologic exam normal. Therefore she does not have changes to suggest preeclampsia exam does not suggest an acute neurologic event such as stroke or tumor or spontaneous bleed and her physical exam does not show signs of infection. Therefore do not feel there is need for further observation or treatment in the ER and she can follow-up on an outpatient basis History & Record Review Discussion w/independent historian: Patient and Significant other Lab Data Attestation: I reviewed the patient's lab results. Labs: Laboratory Results - last 24 hr 03/28/24 05:01 WBC 7.1 RBC 4.00 L Hgb 11.4 L Hct 34.8 L MCV 87.0 MCH 28.5 MCHC 32.8 RDW Std Deviation 42.2 RDW Coeff of Josias 13.5 Plt Count 210 MPV 10.5 Immature Gran % (Auto) 0.400 Neut % (Auto) 69.9 Lymph % (Auto) 21.2 [place] % (Auto) 6.1 Eos % (Auto) 2.0 Baso % (Auto) 0.4 Absolute Neuts (auto) 5.0 Absolute Lymphs (auto) 1.50 Nucleated RBC % 0 Sodium 137 Potassium 3.8 Chloride 107 Carbon Dioxide 25.0 Anion Gap 5 BUN 9 Creatinine 0.57 Estim Creat Clear Calc 146.67 Est GFR (MDRD) Af Amer 165 Est GFR (MDRD) Non-Af 136 BUN/Creatinine Ratio 15.8 Glucose 82 Calcium 9.1 Magnesium 2.1 Total Bilirubin 0.30 Direct Bilirubin 0.13 AST 17 ALT 14 Alkaline Phosphatase 84 Total Protein 6.9 Albumin 2.9 L Globulin 4.0 Discharge Plan Triage Chief Complaint: Headache ED Provider: Elvin Robert Dx/Rx/DC Orders Clinical Impression: Adverse drug reaction, Cephalgia, Muscle spasm Instructions: Muscle Spasm, ED Drug Reaction, Other, ED Headache Unspecified Prescriptions: No Action albuterol sulfate 90 mcg/actuation HFA aerosol inhaler 2 puff INHALATION Q4H PRN (Reason: asthma ) Patient Comments: inhale 2 puffs by mouth and INTO THE LUNGS every 4 hours if needed azelaic acid 15 % gel 1 applic topical BID ondansetron 4 mg tablet,disintegrating 4 mg PO Q8H PRN (Reason: nausea and vomiting) Qty: 30 4RF aspirin 81 mg tablet,delayed release (DR/EC) 81 mg PO DAILY Primary Care Provider: Zach Garg Referrals: Zach Garg MD [Primary Care Provider] - Activity Restrictions/Additional Instructions: Your exam vitals and laboratory studies indicate that your symptoms are most likely an adverse medication from the Tdap vaccination. 30 to 40% of people who get the Tdap vaccination will experience headache. I feel your sensation of numbness/tingling is related to superficial nerve compression from the muscular spasm. Continue to stretch and heat the area to reduce pain and you continue with Tylenol and/or Benadryl for pain control. Return to the ER for any further concerns and follow-up with your family doctor and/or ASSISTANT SURVEYOR for repeat evaluation Print Language: Belarusian Disposition Disposition: Home, Self Care Discharge Date/Time: 03/28/24 07:02
[2024-03-28 06:56] VITALS: BP 109/70; PULSE 83; RESP 16; TEMP 36.7; O2SAT 98
== END 2024-03-28 07:02 | disposition home or self-care (01) ==
PROVIDERS: Emergency Provider Emergency Medicine; PCP Family Medicine; Visit Provider Emergency Medicine
DX: O9A.213 Injury, poisoning and certain other consequences of external causes complicating pregnancy, third trimester (principal); M62.838 Other muscle spasm; Z3A.30 30 weeks gestation of pregnancy; R51.9 Headache, unspecified; O99.891 Other specified diseases and conditions complicating pregnancy; J45.909 Unspecified asthma, uncomplicated; T50.A15A Adverse effect of pertussis vaccine, including combinations with a pertussis component, initial encounter
CPT/HCPCS: 80048; 80076; 83735; 85025; 96361; 96374; 96375; 96376; 99282; J7030

== ENCOUNTER → 2024-04-09 | Outpatient (CLI) | payer OTHER, SELFPAY ==
--- NOTE | 2024-04-09 08:38 | US_ITS ---
STUDY: ABDOMINAL ULTRASOUND - RIGHT UPPER QUADRANT REASON FOR VISIT: Female, 23 years old . Right upper quadrant pain. TECHNIQUE: Ultrasound evaluation of the right upper quadrant was performed with real-time and static marin-scale imaging. TECHNICAL QUALITY: Adequate. COMPARISON: Comparison is made with prior examination dated May 23, 2021. FINDINGS: Liver: The liver measures 15.9 cm. There is normal echogenicity of the liver. The bile ducts are within normal limits. There is hepatic color flow. The direction of portal flow is hepatopetal. 2 echogenic nodules are seen in the right lobe of the liver. The larger measures 2.1 cm x 2.3 cm x 1.9 cm. These are unchanged and most likely represent hemangiomas. Gallbladder: Normal distended gallbladder. The gallbladder wall measures 1.3 mm. There is a negative sonographic Aguilar''s sign. There is no pericholecystic fluid. There are no gallstones. Common Bile Duct (C.B.D.): The common bile duct measures 3.1 mm. Pancreas: Normal size of the head, body and tail of the pancreas. There is normal echogenicity of the pancreas. There is no demonstrated pancreatic mass or cyst. Right Kidney: Normal size of the right kidney. The right kidney measures 10.6 cm x 4.8 cm x 4.9 cm. Normal renal cortex. The right cortex measures 1.2 cm. There is no demonstrated renal mass or cyst. There is no right hydronephrosis. US/Abdomen Limited IMPRESSION: Stable examination. There are 2, echogenic nodules in the right lobe of liver as described suggestive of hemangiomas. Electronically Signed: Jim Cartwright MD at 9:37 EDT ,
== END | disposition home or self-care (01) ==
LOC: US 08:36
PROVIDERS: PCP Family Medicine; Referring Provider Family Medicine; Visit Provider Family Medicine
DX: R10.11 Right upper quadrant pain (principal)
CPT/HCPCS: 76705

== ENCOUNTER 2024-04-13 08:58 | Outpatient (CLI) | payer OTHER, SELFPAY ==
[2024-04-13 09:13] VITALS: BMI 26.9
[2024-04-13 09:15] VITALS: BP 109/73; PULSE 114; RESP 16; TEMP 36.6
[2024-04-13 09:43] VITALS: PULSE 102; O2SAT 98
[2024-04-13 10:38] LABS: Hematocrit 31.7 % (37-47); Hemoglobin 10.6 g/dL (12.0-15.0); Mean Corp Hgb Conc 33.4 g/dL (32-36); Mean Corpuscular Hgb 28.6 pg (27.0-32.0); Mean Corpuscular Volume 85.7 fL (81-99); Mean Platelet Vol. 10.6 fl (6.2-12.0); Platelet Count 188 K/mm3 (150-450); RBC Distribution Width CV 13.5 % (11.6-14.6); RBC Distribution Width SD 41.9 fl (35.1-43.9); White Blood Count 7.3 K/mm3 (4.4-11.0)
[2024-04-13] MEDS: Acetaminophen 500 MG Tablet 1000 MG PO (10:45)
[2024-04-13 10:59] LABS: Protein, Urine (Random) 9.2 mg/dL (<11.9); Protein:Creat Ratio 137 mg/g CRE (0-200)
[2024-04-13 11:00] LABS: ALB/GLOB Ratio 0.7 RATIO (0.9-2.4); AST(SGOT) 15 U/L (15-37); Alanine Aminotransfer ALT/SGPT 12 U/L (13-56); Albumin, Serum 2.7 g/dL (3.2-5.0); Alkaline Phosphatase 101 U/L (45-117); Anion Gap 6 (5-15); BUN 9 mg/dL (7-18); Calcium,Total 8.6 mg/dL (8.5-10.1); Chloride 110 mmol/L (98-107); EST Glomerular Filtration Rate 159 mL/min (>60); Est Glom Filt Rate - Afr Amer 192 mL/min (>60); Estimated Creatinine Clearance 166.56 ml/min; Glucose 96 mg/dL (74-106); Potassium 3.5 mmol/L (3.5-5.1); Protein, Total 6.7 g/dL (6.4-8.2); Sodium Level 137 mmol/L (136-145)
[2024-04-13 11:03] LABS: AST(SGOT) 15 U/L (15-37); Alanine Aminotransfer ALT/SGPT 13 U/L (13-56); Creatinine, Serum 0.56 mg/dL (0.55-1.02); EST Glomerular Filtration Rate 139 mL/min (>60); Est Glom Filt Rate - Afr Amer 168 mL/min (>60); Estimated Creatinine Clearance 148.71 ml/min; Uric Acid 3.1 mg/dL (2.6-6.0)
--- NOTE | 2024-04-14 01:54 | OB.TRI.PN ---
Progress Notes Date of Service: 04/13/24 Progress Note: Patient presents for triage evaluation secondary to dec fm, guadarrama FHT: 130 Moderate variability reactive no decelerations category I tracing [place] Cap[place]: no regular Contractions Assessment and plan: dec fm and guadarrama, negative pree workup, Reactive NST, reassuring maternal and status patient discharged to home to follow-up as scheudled. See problem list details for additional plan information. Laboratory Studies: Laboratory Tests 04/13/24 04/13/24 04/13/24 Range/Units 10:25 10:25 10:25 WBC (4.4-11.0) K/mm3 RBC (4.2-5.4) M/mm3 Hgb (12.0-15.0) g/dL Hct (37-47) % MCV (81-99) fL MCH (27.0-32.0) pg MCHC (32-36) g/dL RDW Std Deviation (35.1-43.9) fl RDW Coeff of Josias (11.6-14.6) % Plt Count (150-450) K/mm3 MPV (6.2-12.0) fl Sodium (136-145) mmol/L Potassium (3.5-5.1) mmol/L Chloride (98-107) mmol/L Carbon Dioxide (21.0-32.0) mmol/L Anion Gap (5-15) BUN (7-18) mg/dL Creatinine (0.55-1.02) mg/dL Estim Creat Clear Calc ml/min Est GFR (MDRD) Af Amer (>60) mL/min Est GFR (MDRD) Non-Af 159 (>60) mL/min BUN/Creatinine Ratio 18.0 (10-20) RATIO Glucose 96 (74-106) mg/dL Uric Acid 3.1 (2.6-6.0) mg/dL Calcium 8.6 (8.5-10.1) mg/dL Total Bilirubin 0.20 (0.20-1.00) mg/dL AST 15 15 (15-37) U/L ALT 12 L 13 (13-56) U/L Alkaline Phosphatase 101 (45-117) U/L Total Protein 6.7 (6.4-8.2) g/dL Albumin 2.7 L (3.2-5.0) g/dL Globulin 4.0 (2.2-4.2) g/dL Albumin/Globulin Ratio 0.7 L (0.9-2.4) RATIO U Random Total Protein 9.2 (<11.9) mg/dL Urine Creatinine 67.20 (NO RANGE EST.) mg/dL Protein/Creatinin Ratio 137 (0-200) mg/g CRE 04/13/24 04/13/24 04/13/24 Range/Units 10:25 10:25 10:25 WBC (4.4-11.0) K/mm3 RBC (4.2-5.4) M/mm3 Hgb (12.0-15.0) g/dL Hct (37-47) % MCV (81-99) fL MCH (27.0-32.0) pg MCHC (32-36) g/dL RDW Std Deviation (35.1-43.9) fl RDW Coeff of Josias (11.6-14.6) % Plt Count (150-450) K/mm3 MPV (6.2-12.0) fl Sodium (136-145) mmol/L Potassium (3.5-5.1) mmol/L Chloride (98-107) mmol/L Carbon Dioxide (21.0-32.0) mmol/L Anion Gap (5-15) BUN (7-18) mg/dL Creatinine 0.50 L (0.55-1.02) mg/dL Estim Creat Clear Calc 166.56 148.71 ml/min Est GFR (MDRD) Af Amer 192 168 (>60) mL/min Est GFR (MDRD) Non-Af 139 (>60) mL/min BUN/Creatinine Ratio (10-20) RATIO Glucose (74-106) mg/dL Uric Acid (2.6-6.0) mg/dL Calcium (8.5-10.1) mg/dL Total Bilirubin (0.20-1.00) mg/dL AST (15-37) U/L ALT (13-56) U/L Alkaline Phosphatase (45-117) U/L Total Protein (6.4-8.2) g/dL Albumin (3.2-5.0) g/dL Globulin (2.2-4.2) g/dL Albumin/Globulin Ratio (0.9-2.4) RATIO U Random Total Protein (<11.9) mg/dL Urine Creatinine (NO RANGE EST.) mg/dL Protein/Creatinin Ratio (0-200) mg/g CRE 04/13/24 Range/Units 10:25 WBC 7.3 (4.4-11.0) K/mm3 RBC 3.70 L (4.2-5.4) M/mm3 Hgb 10.6 L (12.0-15.0) g/dL Hct 31.7 L (37-47) % MCV 85.7 (81-99) fL MCH 28.6 (27.0-32.0) pg MCHC 33.4 (32-36) g/dL RDW Std Deviation 41.9 (35.1-43.9) fl RDW Coeff of Josias 13.5 (11.6-14.6) % Plt Count 188 (150-450) K/mm3 MPV 10.6 (6.2-12.0) fl Sodium 137 (136-145) mmol/L Potassium 3.5 (3.5-5.1) mmol/L Chloride 110 H (98-107) mmol/L Carbon Dioxide 21.0 (21.0-32.0) mmol/L Anion Gap 6 (5-15) BUN 9 (7-18) mg/dL Creatinine 0.56 (0.55-1.02) mg/dL Estim Creat Clear Calc ml/min Est GFR (MDRD) Af Amer (>60) mL/min Est GFR (MDRD) Non-Af (>60) mL/min BUN/Creatinine Ratio (10-20) RATIO Glucose (74-106) mg/dL Uric Acid (2.6-6.0) mg/dL Calcium (8.5-10.1) mg/dL Total Bilirubin (0.20-1.00) mg/dL AST (15-37) U/L ALT (13-56) U/L Alkaline Phosphatase (45-117) U/L Total Protein (6.4-8.2) g/dL Albumin (3.2-5.0) g/dL Globulin (2.2-4.2) g/dL Albumin/Globulin Ratio (0.9-2.4) RATIO U Random Total Protein (<11.9) mg/dL Urine Creatinine (NO RANGE EST.) mg/dL Protein/Creatinin Ratio (0-200) mg/g CRE Charges/Coding Procedures Urinary/Genital 52xxx-59xxx: 38136-61 non-stress test Interp
== END 2024-04-13 11:14 | disposition home or self-care (01) ==
LOC: WPOUT 09:03 → WP 09:03
PROVIDERS: PCP Family Medicine; Referring Provider Obstetrics & Gynecology; Visit Provider Obstetrics & Gynecology
DX: O36.8190 Decreased fetal movements, unspecified trimester, not applicable or unspecified (principal); Z3A.00 Weeks of gestation of pregnancy not specified
CPT/HCPCS: 59025; 59050; 80053; 82565; 82570; 84156; 84450; 84460; 84550; 85027; 99221; G0378

== ENCOUNTER 2024-05-04 15:38 | Outpatient (CLI) | payer OTHER, SELFPAY ==
[2024-05-04 16:02] LABS: Absolute Lymphocyte Count 1.16 X10^3/uL (0.83-4.51); Absolute Neutrophil Count 6.3 X10^3/uL (2.0-7.7); Basophil# 0.02 X10^3/uL; Basophil% 0.3 % (0-1); Eosinophil# 0.09 X10^3/uL; Eosinophils% 1.1 % (0-5); Hematocrit 34.3 % (37-47); Hemoglobin 11.6 g/dL (12.0-15.0); Lymphocyte # 1.16 X10^3/ul (0.83-4.51); Lymphocyte % 14.6 % (19-41); Mean Corp Hgb Conc 33.8 g/dL (32-36); Mean Corpuscular Hgb 28.8 pg (27.0-32.0); Mean Corpuscular Volume 85.1 fL (81-99); Mean Platelet Vol. 10.8 fl (6.2-12.0); Monocyte# 0.38 X10^3/uL; Monocyte% 4.8 % (0-10); NRBC Flagged by Analyzer 0 % (0-5); Neutrophil # 6.27 X10^3/uL (2.7-7.7); Neutrophil % 78.8 % (47-70); Platelet Count 213 K/mm3 (150-450); RBC Distribution Width CV 13.2 % (11.6-14.6); RBC Distribution Width SD 40.5 fl (35.1-43.9); Red Blood Count 4.03 M/mm3 (4.2-5.4)
[2024-05-04 16:16] LABS: ALB/GLOB Ratio 0.7 RATIO (0.9-2.4); AST(SGOT) 15 U/L (15-37); Alanine Aminotransfer ALT/SGPT 14 U/L (13-56); Albumin, Serum 2.8 g/dL (3.2-5.0); Alkaline Phosphatase 144 U/L (45-117); Anion Gap 8 (5-15); BUN 15 mg/dL (7-18); BUN/Creat Ratio 22.9 RATIO (10-20); Calcium,Total 8.9 mg/dL (8.5-10.1); Chloride 108 mmol/L (98-107); Creatinine, Serum 0.66 mg/dL (0.55-1.02); EST Glomerular Filtration Rate 116 mL/min (>60); Est Glom Filt Rate - Afr Amer 141 mL/min (>60); Globulin 4.2 g/dL (2.2-4.2); Glucose 137 mg/dL (74-106); Potassium 3.7 mmol/L (3.5-5.1); Sodium Level 136 mmol/L (136-145)
--- NOTE | 2024-05-04 16:18 | US_ITS ---
STUDY: OBSTETRICAL ULTRASOUND - BIOPHYSICAL PROFILE REASON FOR EXAM: Female, 23 years old right upper quad pain LMP: PRIOR ULTRASOUND: None. TECHNIQUE: Transabdominal TECHNICAL QUALITY: Adequate. FINDINGS: There is a single intrauterine fetus. The fetus is in a cephalic presentation. There is demonstrated cardiac activity with a heart rate of 157 bpm. There is a normal amniotic fluid volume. The largest amniotic fluid pocket measures 3.6 cm. The amniotic fluid index (LUIS) is 12.4 cm. The placenta is anterior in location and is not low lying. There are Grade 2 placental changes. Age by LMP: 36 weeks, 1 days. HEMA by LMP: 05/31/2024. BIOPHYSICAL PROFILE: Breathing Movements (FBM): 2 Gross Body Movements (GBM): 2 Tone (FT): 2 Amniotic Fluid Volume (AFV): 2 TOTAL SCORE: 8 / 8 US/Biophysical Prof W/O Non Stres IMPRESSION: Normal biophysical profile of 8/8. Electronically Signed: Nico Em MD at 19:28 EDT ,
[2024-05-04 17:20] VITALS: BMI 27.1
[2024-05-04 17:25] VITALS: BP 109/65; PULSE 99; RESP 16; TEMP 36.5
--- NOTE | 2024-05-04 17:26 | OB.TRI.PN ---
Progress Notes Date of Service: 05/04/24 Progress Note: Patient presents for triage evaluation secondary to RUQ pain and pruritus of FHT: 130 Moderate variability reactive no decelerations category I tracing [place]: irregular Contractions Assessment and plan: normal labs, awaiting bile acids, BPP 8/8, Reactive NST, reassuring maternal and status patient discharged to home to follow-up in office at next appt. Dischareg home if reactive NST. See problem list details for additional plan information. Dr Esparza aware of assessment and plan and agrees with above plan Laboratory Studies: Laboratory Tests 05/04/24 Range/Units 15:47 WBC 8.0 (4.4-11.0) K/mm3 RBC 4.03 L (4.2-5.4) M/mm3 Hgb 11.6 L (12.0-15.0) g/dL Hct 34.3 L (37-47) % MCV 85.1 (81-99) fL MCH 28.8 (27.0-32.0) pg MCHC 33.8 (32-36) g/dL RDW Std Deviation 40.5 (35.1-43.9) fl RDW Coeff of Josias 13.2 (11.6-14.6) % Plt Count 213 (150-450) K/mm3 MPV 10.8 (6.2-12.0) fl Immature Gran % (Auto) 0.400 (0.0-0.9) % Neut % (Auto) 78.8 H (47-70) % Lymph % (Auto) 14.6 L (19-41) % Lipscomb % (Auto) 4.8 (0-10) % Eos % (Auto) 1.1 (0-5) % Baso % (Auto) 0.3 (0-1) % Absolute Neuts (auto) 6.3 (2.0-7.7) X10^3/uL Absolute Lymphs (auto) 1.16 (0.83-4.51) X10^3/uL Nucleated RBC % 0 (0-5) % Sodium 136 (136-145) mmol/L Potassium 3.7 (3.5-5.1) mmol/L Chloride 108 H (98-107) mmol/L Carbon Dioxide 20.0 L (21.0-32.0) mmol/L Anion Gap 8 (5-15) BUN 15 (7-18) mg/dL Creatinine 0.66 (0.55-1.02) mg/dL Est GFR (MDRD) Af Amer 141 (>60) mL/min Est GFR (MDRD) Non-Af 116 (>60) mL/min BUN/Creatinine Ratio 22.9 H (10-20) RATIO Glucose 137 H (74-106) mg/dL Calcium 8.9 (8.5-10.1) mg/dL Total Bilirubin 0.30 (0.20-1.00) mg/dL AST 15 (15-37) U/L ALT 14 (13-56) U/L Alkaline Phosphatase 144 H (45-117) U/L Total Protein 7.0 (6.4-8.2) g/dL Albumin 2.8 L (3.2-5.0) g/dL Globulin 4.2 (2.2-4.2) g/dL Albumin/Globulin Ratio 0.7 L (0.9-2.4) RATIO Charges/Coding Multi Select Codes Urinary/Genital Urinary/Genital CPT Codes: 71312-87 non-stress test Interp Assessment & Plan (1) Abdominal pain of right upper quadrant during , antepartum: COMMENT: US and Labs (2) Pruritus of : QUALIFIERS: Trimester: third trimester Qualified Code(s): O99.713 - Diseases of the skin and subcutaneous tissue complicating , third trimester; L29.9 - Pruritus, unspecified COMMENT: hands, feet. labs, US for RUQ pain, BPP and growth Twice weekly BPP and weekly bile acids. (3) Abnormal glucose affecting : COMMENT: nl 3 hr GTT (4) Anemia: QUALIFIERS: Anemia type: iron deficiency Iron deficiency anemia type: unspecified iron deficiency Qualified Code(s): D50.9 - Iron deficiency anemia, unspecified COMMENT: ferrous sulfate daily (5) Anxiety and depression: COMMENT: Zoloft (6) Liver tumor (benign): COMMENT: 5 tumors, monitored annually with MRI, await until after (7) COVID-19 affecting in first trimester: COMMENT: asa 81 mg daily (8) Supervision of high-risk : QUALIFIERS: Trimester: third trimester Qualified Code(s): O09.93 - Supervision of high risk , unspecified, third trimester COMMENT: PRR , HEMA 06/08/24, boy Terry (9) : QUALIFIERS: Weeks of gestation: 36 weeks Qualified Code(s): Z3A.36 - 36 weeks gestation of COMMENT: anatomy nl, NIPT low risk, carrier neg. (10) Family history of breast cancer: COMMENT: empower testing offered
[2024-05-04 17:27] VITALS: PULSE 99; O2SAT 98
[2024-05-04 17:28] VITALS: PULSE 100; O2SAT 88
== END 2024-05-04 18:00 | disposition home or self-care (01) ==
LOC: PAVLAB 15:39 → WPOUT 16:09 → WP 16:11
PROVIDERS: PCP Family Medicine; Referring Provider Nurse Practitioner Women's Health; Visit Provider Advanced Practice Midwife
DX: O99.891 Other specified diseases and conditions complicating pregnancy (principal); R10.11 Right upper quadrant pain; O99.713 Diseases of the skin and subcutaneous tissue complicating pregnancy, third trimester; O99.013 Anemia complicating pregnancy, third trimester; D50.9 Iron deficiency anemia, unspecified; L29.9 Pruritus, unspecified; O99.343 Other mental disorders complicating pregnancy, third trimester; F41.9 Anxiety disorder, unspecified; F32.A Depression, unspecified; Z3A.36 36 weeks gestation of pregnancy
CPT/HCPCS: 36415; 59025; 59050; 76819; 80053; 85025; 87081; 99221; G0378

== ENCOUNTER → 2024-05-05 | Outpatient (CLI) | payer OTHER, SELFPAY ==
--- NOTE | 2024-05-05 13:39 | US_ITS ---
INDICATION: GROWTH EXAMINATION: Ultrasound US OB Follow-Up TECHNIQUE: Transabdominal pelvic ultrasound was performed. COMPARISON: US UterusJul 1 2023 FINDINGS: INTRAUTERINE GESTATION(s): Single. ESTIMATED GESTATIONAL AGE: 35 weeks and 6 days ESTIMATED DUE DATE (HEMA): 06/03/2024 HEART MOTION is 129 bpm. AMNIOTIC FLUID INDEX (LUIS): 11.2 cm ESTIMATED WEIGHT: 2617 g Percentile 25%. BIOPHYSICAL PROFILE (BPP): Not assessed. PRESENTATION: Cephalic PLACENTA: Anterior. There is no placenta previa or abruption. CERVIX: The cervix is is not visualized due to fetus head position. US/OB Limited With Biometrics IMPRESSION: Single live intrauterine of 35 weeks and 6 days. No acute abnormality. Electronically Signed: Tye Ugarte MD at 8:06 EDT ,
== END | disposition home or self-care (01) ==
LOC: OPUS 13:37
PROVIDERS: PCP Family Medicine; Referring Provider Nurse Practitioner Women's Health; Visit Provider Nurse Practitioner Women's Health
DX: O99.891 Other specified diseases and conditions complicating pregnancy (principal); R10.11 Right upper quadrant pain; Z3A.00 Weeks of gestation of pregnancy not specified
CPT/HCPCS: 76816

== ENCOUNTER 2024-05-06 11:19 | Emergency (ER) | payer OTHER, SELFPAY ==
[2024-05-06 11:20] VITALS: BP 99/65; PULSE 83; RESP 18; TEMP 36.1; O2SAT 100; BMI 27.1
--- NOTE | 2024-05-06 11:28 | US_ITS ---
INDICATION: RUQ pain, 36 weeks preg EXAMINATION: Ultrasound US Abdomen Limited (quadrant) TECHNIQUE: Darling scale and color doppler imaging was performed of the right upper quadrant. COMPARISON: Prior study dated: 04/09/2024 FINDINGS: LIVER: The liver is normal in echogenicity measuring about 17 cm in length. The portal vein is patent with normal hepatopedal flow. 2 echogenic masses are again seen in the liver, the largest measures about 2.1 x 1.5 x 2 cm and the other measures about 4 mm unchanged. There is no free fluid. GALLBLADDER AND BILIARY TREE: No shadowing gallstone, pericholecystic fluid or gallbladder wall thickening is demonstrated. The gallbladder wall measures 1.3 mm. The proximal common bile duct measures 3.7, which is within normal limits for the patient''s age. Sonographic Aguilar''s sign: Negative. PANCREAS: No focal abnormality is demonstrated in the petrous portions of the pancreas. No pancreatic ductal dilatation. RIGHT KIDNEY: The right kidney measures 11 cm in length. The renal cortex measures 1 cm. Mild prominence of the right collecting system. US/Gallbladder IMPRESSION: 1. No evidence of gallstones, gallbladder wall thickening or biliary dilatation. 2. Stable liver lesions described on previous reports and likely benign. 3. Mild right hydronephrosis which may be related to but not for certain. Electronically Signed: Dallas Garland MD at 12:21 EDT ,
--- NOTE | 2024-05-06 11:32 | EDS_ITS ---
HPI History of Present Illness Chief Complaint: Abd Pain Informant: patient Narrative Narrative: Patient presents secondary to progressive right upper quadrant abdominal pain. Patient is currently 36 weeks with her first . She has been experiencing right upper quadrant abdominal pain. 2 days ago at her OB appointment lab work was sent and is largely unremarkable. They wanted an outpatient ultrasound but were unable to get it scheduled in a timely fashion and she was sent to the emergency room today. Patient states the pain is slightly worse today when compared to 2 days ago when she had her last blood work obtained. No fever or chills. No vaginal bleeding and she is feeling normal movement. [facility] Medical History Abnormal glucose affecting Seasonal allergies Liver tumor Anemia Acid reflux IBS (irritable bowel syndrome) Fatigue Asthma Home Medications ?Medication ?Instructions ?Recorded ?Last Taken ?Type albuterol sulfate 90 mcg/actuation 2 puff inhalation Q4H PRN asthma 12/23/20 Unknown History aerosol inhaler azelaic acid 15 % topical gel 1 applic topical BID 05/09/23 Unknown History ondansetron 4 mg disintegrating 4 mg PO Q8H PRN nausea and 11/11/23 Unknown Rx tablet vomiting #30 tabs aspirin 81 mg tablet,delayed 81 mg PO DAILY 12/02/23 Unknown History release Allergy/AdvReac Type Severity Reaction Status Date / Time almond Allergy Severe Anaphylaxis Verified 05/06/24 11:20 Family History Mother Breast cancer 20s Cervical cancer Hypertension Aunt Breast cancer 30s Grandmother Diabetes Hypertension Sister History of recurrent miscarriages Surgical History H/O left breast biopsy Hx of wisdom tooth extraction Social History adopted: No household members: family current occupational status: employed 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 [employer] current occupational exposures/hazards: No pets and animals: Yes pets and animals: cat(s) history of recent travel: Yes (- September) out of state: Yes out of country: No sexually active: Yes Smoking Status: Never smoker second hand exposure: No alcohol intake: current alcohol intake frequency: holidays/special occasions only details: not while substance use type: does not use well-balanced diet: about half the time caffeine: Yes Type: coffee Number of servings: 1 eating out: 1-3 times/week during the past year weight has: decreased > 10 lbs what type of physical activity do you participate in: none price/sabianism: Scientology seatbelt use: always do you feel safe at home: Yes additional social history: [facility] ROS ROS ED Constitutional Constitutional ED: Denies chills or fever(s) ENT ENT ED: Denies rhinorrhea or sore throat Cardiovascular Cardiovascular: Denies chest pain or palpitations Respiratory/Chest Respiratory/Chest: Denies cough or dyspnea Gastrointestinal Gastrointestinal: Reports abdominal pain; Denies diarrhea, nausea or vomiting Genitourinary Genitourinary ED: Denies dysuria Musculoskeletal Musculoskeletal: Denies back pain or extremity pain Integumentary Denies Abrasions or rash Neurologic Neurologic: Denies headache(s) or weakness Psychiatric Psychiatric: Denies anxiety or depression Allergic/Immunologic Allergic/Immunologic ED: Denies lip swelling or urticaria EXAM Physical Exam Const Vital Signs: 05/06/24 11:20 05/06/24 13:06 Temperature 97 F L 97.3 F L Temperature Source Temporal Pulse Rate 83 83 Respiratory Rate 18 16 Blood Pressure 99/65 100/67 Blood Pressure Mean 76 78 Pulse Ox 100 99 Positive well nourished and well developed General Appearance ED: well developed HEENT Reports moist mucous membranes Eyes EOMs intact bilaterally Chest Wall inspection of chest normal and palpation of chest normal Resp normal respiratory effort and clear to auscultation bilaterally Cardio regular rate and regular rhythm GI GI Narrative: Gravid abdomen. Mild tenderness in the right upper quadrant. No guarding or rebound. Extremity normal to inspection Neuro oriented x3 and no sensory deficits noted Motor Exam: strength 5/5 throughout Psych mental status grossly normal Skin no rashes or lesions noted MDM MDM MDM Narrative Medical decision making narrative: Lab work from 2 days ago was reviewed. We will repeat her labs today to ensure no worsening liver function. Right upper quadrant ultrasound will be obtained. History & Record Review Discussion w/independent historian: Patient Lab Data Attestation: I reviewed the patient's lab results. Labs: Laboratory Results - last 24 hr 05/06/24 11:35 WBC 6.2 RBC 4.02 L Hgb 11.2 L Hct 33.9 L MCV 84.3 MCH 27.9 MCHC 33.0 RDW Std Deviation 40.3 RDW Coeff of Josias 13.2 Plt Count 193 MPV 11.1 Immature Gran % (Auto) 0.500 Neut % (Auto) 71.7 H Lymph % (Auto) 19.6 [place] % (Auto) 6.6 Eos % (Auto) 1.0 Baso % (Auto) 0.6 Absolute Neuts (auto) 4.5 Absolute Lymphs (auto) 1.22 Nucleated RBC % 0 Sodium 136 Potassium 3.9 Chloride 109 H Carbon Dioxide 21.0 Anion Gap 6 BUN 7 Creatinine 0.59 Estim Creat Clear Calc 141.40 Est GFR (MDRD) Af Amer 159 Est GFR (MDRD) Non-Af 132 BUN/Creatinine Ratio 11.9 Glucose 74 Calcium 9.1 Total Bilirubin 0.30 Direct Bilirubin 0.09 AST 16 ALT 13 Alkaline Phosphatase 145 H Total Protein 7.0 Albumin 2.8 L Globulin 4.2 Lipase 48 Radiography Diagnostic Testing: Clinical Impression(s) from Imaging Studies Gallbladder Ultrasound 05/06/24 11:28 IMPRESSION: 1. No evidence of gallstones, gallbladder wall thickening or biliary dilatation. 2. Stable liver lesions described on previous reports and likely benign. 3. Mild right hydronephrosis which may be related to but not for certain. Electronically Signed: Dallas Garland MD at 12:21 EDT , Treatment and Re-Evaluation :: CBC was normal white count 6.2 with a hemoglobin 11.2. Chemistry studies unremarkable. LFTs significant for an alk phos of 145. Albumin is 2.8. Lipase is normal at 48. When comparing lab work from today to 2 days ago, no significant changes noted. Right upper quadrant ultrasound is obtained and reveals no evidence of gallstones, gallbladder wall thickening, or biliary dilatation. Stable liver lesions are noted and unchanged when compared to prior study. Mild right hydronephrosis is noted which may be related to . Test results discussed with the patient. I will speak with [place] [facility] as they did send her in to ensure no other studies are needed. Addendum: I spoke with Dr. Esparza. [facility] be [facility] to [facility] [place]. Discharge Plan Triage Chief Complaint: Abd Pain ED Provider: Yana Shannon Dx/Rx/DC Orders Clinical Impression: Right upper quadrant pain, Third trimester Instructions: ED Abdominal Pain Unkn Cause Fem Prescriptions: No Action albuterol sulfate 90 mcg/actuation HFA aerosol inhaler 2 puff INHALATION Q4H PRN (Reason: asthma ) Patient Comments: inhale 2 puffs by mouth and INTO THE LUNGS every 4 hours if needed azelaic acid 15 % gel 1 applic topical BID ondansetron 4 mg tablet,disintegrating 4 mg PO Q8H PRN (Reason: nausea and vomiting) Qty: 30 4RF aspirin 81 mg tablet,delayed release (DR/EC) 81 mg PO DAILY Primary Care Provider: Zach Garg Referrals: Zach Garg MD [Primary Care Provider] - Lynda Esparza MD [Med Staff - Active Staff] - Keep Frandy appointment Print Language: Kiswahili Disposition Disposition: Home, Self Care Discharge Date/Time: 05/06/24 13:07
[2024-05-06 11:43] LABS: Absolute Lymphocyte Count 1.22 X10^3/uL (0.83-4.51); Absolute Neutrophil Count 4.5 X10^3/uL (2.0-7.7); Basophil# 0.04 X10^3/uL; Basophil% 0.6 % (0-1); Eosinophil# 0.06 X10^3/uL; Hematocrit 33.9 % (37-47); Hemoglobin 11.2 g/dL (12.0-15.0); Lymphocyte # 1.22 X10^3/ul (0.83-4.51); Lymphocyte % 19.6 % (19-41); Mean Corpuscular Hgb 27.9 pg (27.0-32.0); Mean Corpuscular Volume 84.3 fL (81-99); Mean Platelet Vol. 11.1 fl (6.2-12.0); Monocyte# 0.41 X10^3/uL; Monocyte% 6.6 % (0-10); NRBC Flagged by Analyzer 0 % (0-5); Neutrophil # 4.46 X10^3/uL (2.7-7.7); Neutrophil % 71.7 % (47-70); Platelet Count 193 K/mm3 (150-450); RBC Distribution Width CV 13.2 % (11.6-14.6); RBC Distribution Width SD 40.3 fl (35.1-43.9); Red Blood Count 4.02 M/mm3 (4.2-5.4); White Blood Count 6.2 K/mm3 (4.4-11.0)
[2024-05-06 11:58] LABS: AST(SGOT) 16 U/L (15-37); Alanine Aminotransfer ALT/SGPT 13 U/L (13-56); Albumin, Serum 2.8 g/dL (3.2-5.0); Alkaline Phosphatase 145 U/L (45-117); Anion Gap 6 (5-15); BUN 7 mg/dL (7-18); BUN/Creat Ratio 11.9 RATIO (10-20); Bilirubin, Direct 0.09 mg/dL (0.00-0.30); Calcium,Total 9.1 mg/dL (8.5-10.1); Chloride 109 mmol/L (98-107); Creatinine, Serum 0.59 mg/dL (0.55-1.02); EST Glomerular Filtration Rate 132 mL/min (>60); Est Glom Filt Rate - Afr Amer 159 mL/min (>60); Globulin 4.2 g/dL (2.2-4.2); Glucose 74 mg/dL (74-106); Lipase 48 U/L (13-75); Potassium 3.9 mmol/L (3.5-5.1); Sodium Level 136 mmol/L (136-145)
[2024-05-06 13:06] VITALS: BP 100/67; PULSE 83; RESP 16; TEMP 36.3; O2SAT 99
== END 2024-05-06 13:07 | disposition home or self-care (01) ==
PROVIDERS: Emergency Provider Emergency Medicine; PCP Family Medicine; Visit Provider Emergency Medicine
DX: O99.891 Other specified diseases and conditions complicating pregnancy (principal); R10.11 Right upper quadrant pain; Z3A.36 36 weeks gestation of pregnancy; K21.9 Gastro-esophageal reflux disease without esophagitis; J45.909 Unspecified asthma, uncomplicated; O99.513 Diseases of the respiratory system complicating pregnancy, third trimester; O99.613 Diseases of the digestive system complicating pregnancy, third trimester
CPT/HCPCS: 76705; 80048; 80076; 83690; 85025; 99282; A4216

== ENCOUNTER 2024-05-06 13:10 | Outpatient (CLI) | payer OTHER, SELFPAY ==
[2024-05-06] VITALS (19 sets, daily range): BP systolic 108; BP diastolic 68; PULSE 72–92; O2SAT 91–100; BMI 26.9
--- NOTE | 2024-05-06 15:13 | OB.TRI.PN_ITS ---
Progress Notes Date of Service: 05/06/24 Progress Note: Patient presents for triage evaluation secondary to ED visit. Needs NST for reassurance FHT: 115 Moderate variability reactive no decelerations category I tracing [place]: no Contractions Assessment and plan: Reactive NST, reassuring maternal and status patient discharged to home to follow-up in office at next appt. See problem list details for additional plan information. Charges/Coding Multi Select Codes Urinary/Genital Urinary/Genital CPT Codes: 13361-51 non-stress test Interp Assessment & Plan (1) Third trimester : (2) Right upper quadrant pain: (3) Abdominal pain of right upper quadrant during , antepartum: COMMENT: US and Labs (4) Pruritus of : QUALIFIERS: Trimester: third trimester Qualified Code(s): O99.713 - Diseases of the skin and subcutaneous tissue complicating , third trimester; L29.9 - Pruritus, unspecified COMMENT: hands, feet. labs, US for RUQ pain, BPP(06/11) and growth(EFW 25%, AC 31%). Twice weekly BPP and weekly bile acids. (5) Abnormal glucose affecting : COMMENT: nl 3 hr GTT (6) Anemia: QUALIFIERS: Anemia type: iron deficiency Iron deficiency anemia type: unspecified iron deficiency Qualified Code(s): D50.9 - Iron deficiency anemia, unspecified COMMENT: ferrous sulfate daily (7) Anxiety and depression: COMMENT: Zoloft (8) Liver tumor (benign): COMMENT: 5 tumors, monitored annually with MRI, await until after (9) COVID-19 affecting in first trimester: COMMENT: asa 81 mg daily (10) Supervision of high-risk : QUALIFIERS: Trimester: third trimester Qualified Code(s): O09.93 - Supervision of high risk , unspecified, third trimester COMMENT: PRR , HEMA 06/08/24, boy Terry (11) : QUALIFIERS: Weeks of gestation: 36 weeks Qualified Code(s): Z3A.36 - 36 weeks gestation of COMMENT: Neg GBS. anatomy nl, NIPT low risk, carrier neg. (12) Family history of breast cancer: COMMENT: empower testing offered
== END 2024-05-06 15:10 | disposition home or self-care (01) ==
LOC: WPOUT 13:13 → WP 13:13
PROVIDERS: PCP Family Medicine; Referring Provider Advanced Practice Midwife; Visit Provider Advanced Practice Midwife
DX: O99.891 Other specified diseases and conditions complicating pregnancy (principal); O99.713 Diseases of the skin and subcutaneous tissue complicating pregnancy, third trimester; R10.11 Right upper quadrant pain; O99.810 Abnormal glucose complicating pregnancy; O99.013 Anemia complicating pregnancy, third trimester; D50.9 Iron deficiency anemia, unspecified; O99.343 Other mental disorders complicating pregnancy, third trimester; F41.9 Anxiety disorder, unspecified; F32.A Depression, unspecified; Z79.899 Other long term (current) drug therapy; D13.4 Benign neoplasm of liver; O09.93 Supervision of high risk pregnancy, unspecified, third trimester; Z3A.36 36 weeks gestation of pregnancy
CPT/HCPCS: 59025; 59050; 99221; G0378

== ENCOUNTER → 2024-05-08 | Outpatient (CLI) | payer OTHER, SELFPAY ==
--- NOTE | 2024-05-08 10:56 | US_ITS ---
STUDY: OBSTETRICAL ULTRASOUND - BIOPHYSICAL PROFILE REASON FOR EXAM: Female, 23 years old RUQ pain LMP: PRIOR ULTRASOUND: 05/05/2024 TECHNIQUE: Transabdominal TECHNICAL QUALITY: Adequate. FINDINGS: There is a single intrauterine fetus. The fetus is in a cephalic presentation. There is demonstrated cardiac activity with a heart rate of 148 bpm. There is a normal amniotic fluid volume. The largest amniotic fluid pocket measures 3.5 cm. The amniotic fluid index (LUIS) is 9.5 cm., This has decreased from 12.4 cm on the previous study. The placenta is anterior in location and is not low lying. There are Grade 2 placental changes. BIOPHYSICAL PROFILE: Breathing Movements (FBM): 2 Gross Body Movements (GBM): 2 Tone (FT): 2 Amniotic Fluid Volume (AFV): 2 TOTAL SCORE: US/Biophysical Prof W/O Non Stres IMPRESSION: Normal biophysical profile of 06/11. No change since the previous study Electronically Signed: Toño Rose MD at 11:39 EDT ,
== END | disposition home or self-care (01) ==
LOC: OPUS 10:47
PROVIDERS: PCP Family Medicine; Referring Provider Nurse Practitioner Women's Health; Visit Provider Nurse Practitioner Women's Health
DX: R10.11 Right upper quadrant pain (principal)
CPT/HCPCS: 76819

== ENCOUNTER 2024-05-09 21:25 | Outpatient (CLI) | payer OTHER, SELFPAY ==
[2024-05-09 21:41] VITALS: BP 115/67; PULSE 106; RESP 16; TEMP 36.2; O2SAT 93
[2024-05-09 21:52] VITALS: BMI 27.7
[2024-05-09 22:38] LABS: ROM Internal Control Test YES-OK TO RESULT pt. (Internal QC); ROM Patient Test Negative (Negative); Record Kit Lot#, ROM+ K1866
== END 2024-05-09 23:10 | disposition home or self-care (01) ==
LOC: WPOUT 21:30 → WP 21:31
PROVIDERS: PCP Family Medicine; Visit Provider Registered Nurse
DX: Z03.71 Encounter for suspected problem with amniotic cavity and membrane ruled out (principal); O99.613 Diseases of the digestive system complicating pregnancy, third trimester; O99.513 Diseases of the respiratory system complicating pregnancy, third trimester; J45.909 Unspecified asthma, uncomplicated; K21.9 Gastro-esophageal reflux disease without esophagitis; Z3A.36 36 weeks gestation of pregnancy
CPT/HCPCS: 59050; 84112; 99221; G0378

== ENCOUNTER 2024-05-12 13:29 | Outpatient (CLI) | payer OTHER, SELFPAY ==
--- NOTE | 2024-05-12 13:31 | US_ITS ---
We are attempting to reach an attending provider to discuss findings. An addendum with communication details will be sent when the communication is complete. STUDY: OBSTETRICAL ULTRASOUND - BIOPHYSICAL PROFILE REASON FOR EXAM: Female, 23 years old RUQ pain, itching LMP: PRIOR ULTRASOUND: 05/08/2024 TECHNIQUE: Transabdominal TECHNICAL QUALITY: Adequate. FINDINGS: There is a single intrauterine fetus. The fetus is in a cephalic presentation. There is demonstrated cardiac activity with a heart rate of 131 bpm. There is a normal amniotic fluid volume. The largest amniotic fluid pocket measures 3.4 cm. The amniotic fluid index (LUIS) is 9.1 cm. The placenta is anterior in location and is not low lying. There are Grade 2 placental changes. BIOPHYSICAL PROFILE: Breathing Movements (FBM): 0 Gross Body Movements (GBM): 2 Tone (FT): 2 Amniotic Fluid Volume (AFV): 2 TOTAL SCORE: 8 US/Biophysical Prof W/O Non Stres IMPRESSION: biophysical profile of 04/11. Electronically Signed: Jeovanny Hernandez MD at 15:11 EDT ,
[2024-05-12 14:34] VITALS: BMI 26.6
[2024-05-12 14:41] VITALS: BP 111/72; PULSE 88
[2024-05-12 14:42] VITALS: PULSE 95; O2SAT 98
--- NOTE | 2024-05-12 14:48 | NURSING ---
pt continues to sleep during therapy. did awaken and voiced she felt better with no N/V noted,
--- NOTE | 2024-05-12 15:42 | PCM.PN.BLA ---
Progress Note Patient presents for triage evaluation secondary to bpp of 68 today. (2 points off for breathing) FHT: 120 Moderate variability reactive no decelerations category I tracing [place]: irregular Contractions Assessment and plan: Reactive NST, reassuring maternal and status patient discharged to home to follow-up in one week in office . See problem list details for additional plan information. Assessment & Plan Assessment/Plan (1) Third trimester : (2) Right upper quadrant pain: (3) Abdominal pain of right upper quadrant during , antepartum: (4) Pruritus of : QUALIFIERS: Trimester: third trimester Qualified Code(s): O99.713 - Diseases of the skin and subcutaneous tissue complicating , third trimester; L29.9 - Pruritus, unspecified (5) Abnormal glucose affecting : (6) Anemia: QUALIFIERS: Anemia type: iron deficiency Iron deficiency anemia type: unspecified iron deficiency Qualified Code(s): D50.9 - Iron deficiency anemia, unspecified (7) Anxiety and depression: (8) Liver tumor (benign): (9) COVID-19 affecting in first trimester: (10) Supervision of high-risk : QUALIFIERS: Trimester: third trimester Qualified Code(s): O09.93 - Supervision of high risk , unspecified, third trimester (11) : QUALIFIERS: Weeks of gestation: 36 weeks Qualified Code(s): Z3A.36 - 36 weeks gestation of (12) Family history of breast cancer: (13) Decreased movement:
== END 2024-05-12 15:23 | disposition home or self-care (01) ==
LOC: US 13:29 → WPOUT 14:28 → WP 14:30
PROVIDERS: PCP Family Medicine; Referring Provider Obstetrics & Gynecology; Visit Provider Obstetrics & Gynecology
DX: O99.891 Other specified diseases and conditions complicating pregnancy (principal); R10.11 Right upper quadrant pain; O99.713 Diseases of the skin and subcutaneous tissue complicating pregnancy, third trimester; L29.9 Pruritus, unspecified; O99.013 Anemia complicating pregnancy, third trimester; D50.9 Iron deficiency anemia, unspecified; O36.8130 Decreased fetal movements, third trimester, not applicable or unspecified; O09.93 Supervision of high risk pregnancy, unspecified, third trimester; Z3A.36 36 weeks gestation of pregnancy; D49.0 Neoplasm of unspecified behavior of digestive system; O99.810 Abnormal glucose complicating pregnancy
CPT/HCPCS: 59025; 59050; 76819; 99221; G0378

== ENCOUNTER 2024-05-14 09:30 | Outpatient (CLI) | payer OTHER, SELFPAY ==
[2024-05-14 09:42] VITALS: BP 95/71; PULSE 109; O2SAT 99
[2024-05-14 09:43] VITALS: RESP 15; TEMP 36.4; O2SAT 100
[2024-05-14 10:27] VITALS: BMI 27.3
[2024-05-14 10:43] LABS: Hematocrit 32.4 % (37-47); Hemoglobin 10.9 g/dL (12.0-15.0); Mean Corp Hgb Conc 33.6 g/dL (32-36); Mean Corpuscular Hgb 27.9 pg (27.0-32.0); Mean Corpuscular Volume 83.1 fL (81-99); Mean Platelet Vol. 10.4 fl (6.2-12.0); Platelet Count 150 K/mm3 (150-450); RBC Distribution Width CV 13.3 % (11.6-14.6); RBC Distribution Width SD 39.8 fl (35.1-43.9); White Blood Count 6.3 K/mm3 (4.4-11.0)
[2024-05-14] MEDS: Acetaminophen 500 MG Tablet 1000 MG PO (10:49)
[2024-05-14 11:12] VITALS: PULSE 89; O2SAT 98
[2024-05-14 11:15] LABS: AST(SGOT) 19 U/L (15-37); Alanine Aminotransfer ALT/SGPT 13 U/L (13-56); Creatinine, Serum 0.59 mg/dL (0.55-1.02); EST Glomerular Filtration Rate 130 mL/min (>60); Est Glom Filt Rate - Afr Amer 157 mL/min (>60); Estimated Creatinine Clearance 142.07 ml/min; Uric Acid 3.8 mg/dL (2.6-6.0)
[2024-05-14 11:23] VITALS: PULSE 84; O2SAT 99
[2024-05-14 11:35] LABS: Protein, Urine (Random) 10.7 mg/dL (<11.9); Protein:Creat Ratio 152 mg/g CRE (0-200)
[2024-05-14 11:45] VITALS: BP 107/72; PULSE 93; RESP 16; TEMP 36.2; O2SAT 97
--- NOTE | 2024-05-14 12:12 | OB.TRI.PN ---
Progress Notes Date of Service: 05/14/24 Progress Note: Patient presents for triage evaluation secondary to 6/8 BPP FHT: 120 Moderate variability reactive no decelerations category I tracing [place]: no regular Contractions Assessment and plan: reassuring testing, 8/10 BPP. initially had a headache now, resolved. normal pree workup. normal bps. Reactive NST, reassuring maternal and status patient discharged to home to follow-up as scheduled. See problem list details for additional plan information. Laboratory Studies: Laboratory Tests 05/14/24 05/14/24 Range/Units 10:54 10:35 WBC 6.3 (4.4-11.0) K/mm3 RBC 3.90 L (4.2-5.4) M/mm3 Hgb 10.9 L (12.0-15.0) g/dL Hct 32.4 L (37-47) % MCV 83.1 (81-99) fL MCH 27.9 (27.0-32.0) pg MCHC 33.6 (32-36) g/dL RDW Std Deviation 39.8 (35.1-43.9) fl RDW Coeff of Josias 13.3 (11.6-14.6) % Plt Count 150 (150-450) K/mm3 MPV 10.4 (6.2-12.0) fl Creatinine 0.59 (0.55-1.02) mg/dL Estim Creat Clear Calc 142.07 ml/min Est GFR (MDRD) Af Amer 157 (>60) mL/min Est GFR (MDRD) Non-Af 130 (>60) mL/min Uric Acid 3.8 (2.6-6.0) mg/dL AST 19 (15-37) U/L ALT 13 (13-56) U/L U Random Total Protein 10.7 (<11.9) mg/dL Urine Creatinine 70.40 (NO RANGE EST.) mg/dL Protein/Creatinin Ratio 152 (0-200) mg/g CRE Charges/Coding Procedures Urinary/Genital 52xxx-59xxx: 41897-89 non-stress test Interp
== END 2024-05-14 11:55 | disposition home or self-care (01) ==
LOC: WPOUT 09:37 → WP 09:37
PROVIDERS: PCP Family Medicine; Referring Provider Obstetrics & Gynecology; Visit Provider Obstetrics & Gynecology
DX: Z71.1 Person with feared health complaint in whom no diagnosis is made (principal)
CPT/HCPCS: 36415; 59025; 59050; 82565; 82570; 84156; 84450; 84460; 84550; 85027; 99221; G0378

== ENCOUNTER → 2024-05-14 | Outpatient (CLI) | payer OTHER, SELFPAY ==
--- NOTE | 2024-05-14 08:42 | US_ITS ---
STUDY: OBSTETRICAL ULTRASOUND - BIOPHYSICAL PROFILE REASON FOR EXAM: Female, 23 years old RUQ pain, itching, well being LMP: August 25, 2023. PRIOR ULTRASOUND: Comparison is made with prior study dated May 12, 2024. TECHNIQUE: TECHNICAL QUALITY: Adequate. FINDINGS: There is a single intrauterine fetus. The fetus is in a cephalic presentation. There is demonstrated cardiac activity with a heart rate of 122 bpm. There is a normal amniotic fluid volume. The largest amniotic fluid pocket measures 3.3 cm. The amniotic fluid index (LUIS) is 8.2 cm. The placenta is anterior in location and is not low lying. There are Grade 2 placental changes. Age by LMP: 37 weeks, 4 days. HEMA by LMP: May 31, 2024. BIOPHYSICAL PROFILE: Breathing Movements (FBM): 0 Gross Body Movements (GBM): 2 Tone (FT): 2 Amniotic Fluid Volume (AFV): 2 TOTAL SCORE: / US/Biophysical Prof W/O Non Stres IMPRESSION: biophysical profile of 04/11. Electronically Signed: Jim Cartwright MD at 9:52 EDT ,
== END | disposition home or self-care (01) ==
LOC: US 08:40
PROVIDERS: PCP Family Medicine; Referring Provider Nurse Practitioner Women's Health; Visit Provider Nurse Practitioner Women's Health
DX: O99.719 Diseases of the skin and subcutaneous tissue complicating pregnancy, unspecified trimester (principal); O26.899 Other specified pregnancy related conditions, unspecified trimester; R10.11 Right upper quadrant pain; L29.9 Pruritus, unspecified; Z3A.00 Weeks of gestation of pregnancy not specified
CPT/HCPCS: 76819

== ENCOUNTER 2024-05-17 23:48 | Outpatient (CLI) | payer OTHER, SELFPAY ==
[2024-05-18] VITALS (100 sets, daily range): BP systolic 88–128; BP diastolic 51–77; PULSE 70–112; RESP 16; TEMP 36.4–36.7; O2SAT 91–100; BMI 28.1
[2024-05-18 00:57] LABS: Protein, Urine (Random) 6.4 mg/dL (<11.9); Protein:Creat Ratio 198 mg/g CRE (0-200)
[2024-05-18 01:07] LABS: Hematocrit 31.1 % (37-47); Hemoglobin 10.4 g/dL (12.0-15.0); Mean Corp Hgb Conc 33.4 g/dL (32-36); Mean Corpuscular Volume 83.8 fL (81-99); Mean Platelet Vol. 11.4 fl (6.2-12.0); Platelet Count 180 K/mm3 (150-450); RBC Distribution Width CV 13.1 % (11.6-14.6); RBC Distribution Width SD 39.5 fl (35.1-43.9); Red Blood Count 3.71 M/mm3 (4.2-5.4)
--- NOTE | 2024-05-18 01:51 | OB.TRI.PN_ITS ---
Progress Notes Date of Service: 05/18/24 Progress Note: Patient presents for triage evaluation secondary to headache FHT: 125 Moderate variability reactive no decelerations category I tracing [place]: irregular Contractions Assessment and plan: normal labs, headache resolving with tylenol, Reactive NST, reassuring maternal and status patient discharged to home to follow-up in office. See problem list details for additional plan information. Laboratory Studies: Laboratory Tests 05/18/24 Range/Units 00:26 WBC 7.0 (4.4-11.0) K/mm3 RBC 3.71 L (4.2-5.4) M/mm3 Hgb 10.4 L (12.0-15.0) g/dL Hct 31.1 L (37-47) % MCV 83.8 (81-99) fL MCH 28.0 (27.0-32.0) pg MCHC 33.4 (32-36) g/dL RDW Std Deviation 39.5 (35.1-43.9) fl RDW Coeff of Josias 13.1 (11.6-14.6) % Plt Count 180 (150-450) K/mm3 MPV 11.4 (6.2-12.0) fl U Random Total Protein 6.4 (<11.9) mg/dL Urine Creatinine 32.40 (NO RANGE EST.) mg/dL Protein/Creatinin Ratio 198 (0-200) mg/g CRE Charges/Coding Multi Select Codes Visit Charges Office Visit/Consults: 61343 OV L3 Est 20min Urinary/Genital Urinary/Genital CPT Codes: 36169-70 non-stress test Interp Assessment & Plan (1) Abnormal glucose affecting : COMMENT: nl 3 hr GTT (2) Anemia: QUALIFIERS: Anemia type: iron deficiency Iron deficiency anemia type: unspecified iron deficiency Qualified Code(s): D50.9 - Iron deficiency anemia, unspecified COMMENT: ferrous sulfate daily (3) Anxiety and depression: COMMENT: Zoloft (4) Liver tumor (benign): COMMENT: 5 tumors, monitored annually with MRI, await until after pre gnancy (5) COVID-19 affecting in first trimester: COMMENT: asa 81 mg daily (6) Supervision of high-risk : QUALIFIERS: Trimester: third trimester Qualified Code(s): O09.93 - Supervision of high risk , unspecified, third trimester COMMENT: PRR , HEMA 06/08/24, boy Terry (7) : QUALIFIERS: Weeks of gestation: 37 weeks Qualified Code(s): Z3A.37 - 37 weeks gestation of COMMENT: Neg GBS. anatomy nl, NIPT low risk, carrier neg. (8) Family history of breast cancer: COMMENT: empower testing offered (9) Headache in : COMMENT: pre e labs nl, cat 1, resolving with Tylenol, d/c home
[2024-05-18 02:07] LABS: AST(SGOT) 16 U/L (15-37); Alanine Aminotransfer ALT/SGPT 12 U/L (13-56); Creatinine, Serum 0.59 mg/dL (0.55-1.02); EST Glomerular Filtration Rate 132 mL/min (>60); Est Glom Filt Rate - Afr Amer 159 mL/min (>60); Estimated Creatinine Clearance 144.09 ml/min; Uric Acid 3.4 mg/dL (2.6-6.0)
[2024-05-18] MEDS: Lactated Ringers 1,000 ML 999 ML IV (02:40)
--- NOTE | 2024-05-18 04:09 | US_ITS ---
STUDY: OBSTETRICAL ULTRASOUND - BIOPHYSICAL PROFILE REASON FOR EXAM: Female, 23 years old -- WELL BEING LMP: PRIOR ULTRASOUND: 05/14/2024 TECHNIQUE: Transabdominal TECHNICAL QUALITY: Adequate. FINDINGS: There is a single intrauterine fetus. The fetus is in a cephalic presentation. There is demonstrated cardiac activity with a heart rate of 152 bpm. There is a normal amniotic fluid volume. The largest amniotic fluid pocket measures 4.6 cm. The amniotic fluid index (LUIS) is 16.3 cm. The placenta is anterior in location and is not low lying. There are Grade 2 placental changes. Age by LMP: weeks, days. HEMA by LMP: . age by prior US: 38 weeks, 1 days. HEMA by prior US: 05/31/2024. age by current US: weeks, days. HEMA by current US: . Gender: BIOPHYSICAL PROFILE: Breathing Movements (FBM): 2 Gross Body Movements (GBM): 2 Tone (FT): 2 Amniotic Fluid Volume (AFV): 2 TOTAL SCORE: 8 / 8 US/Biophysical Prof W/O Non Stres IMPRESSION: Normal biophysical profile of 8/8. Electronically Signed: Jeovanny Hernandez MD at 8:06 EDT ,
--- NOTE | 2024-05-18 04:19 | PN_ITS ---
Progress Note Coping well with contractions current tracing: FHT: 90 Moderate variability reactive no decelerations category I tracing- wandering baseline [place]: irregular Contractions Membranes:intact SVE:/ reviewed tracing abnormalities since last note: phone collaboration with Dr Chi at this time for wandering baseline and changes in FHT tracing. plan for BPP in AM, if reassuring, plan for d/c in am Assessment & Plan Assessment/Plan (1) Headache in : (2) Abnormal glucose affecting : (3) Anemia: QUALIFIERS: Anemia type: iron deficiency Iron deficiency anemia type: unspecified iron deficiency Qualified Code(s): D50.9 - Iron deficiency anemia, unspecified (4) Anxiety and depression: (5) Liver tumor (benign): (6) COVID-19 affecting in first trimester: (7) Supervision of high-risk : QUALIFIERS: Trimester: third trimester Qualified Code(s): O09.93 - Supervision of high risk , unspecified, third trimester (8) : QUALIFIERS: Weeks of gestation: 37 weeks Qualified Code(s): Z3A.37 - 37 weeks gestation of (9) Family history of breast cancer: Multi Select Codes Urinary/Genital Urinary/Genital CPT Codes: No Charge
== END 2024-05-18 08:05 | disposition home or self-care (01) ==
LOC: WPOUT 23:59 → WP 05-18
PROVIDERS: PCP Family Medicine; Visit Provider Advanced Practice Midwife
DX: O99.891 Other specified diseases and conditions complicating pregnancy (principal); R51.9 Headache, unspecified; Z3A.37 37 weeks gestation of pregnancy; O99.810 Abnormal glucose complicating pregnancy; O99.013 Anemia complicating pregnancy, third trimester; O99.343 Other mental disorders complicating pregnancy, third trimester; F41.8 Other specified anxiety disorders; D13.4 Benign neoplasm of liver
CPT/HCPCS: 59025; 59050; 76819; 82565; 82570; 84156; 84450; 84460; 84550; 85027; 99221; J7120; G0378

== ENCOUNTER → 2024-05-22 | Outpatient (CLI) | payer OTHER, SELFPAY ==
[2024-05-22 17:43] LABS: ROM Internal Control Test YES-OK TO RESULT pt. (Internal QC); Record Kit Lot#, ROM+ K1866
[2024-05-22 18:07] LABS: ROM Patient Test Negative (Negative)
== END | disposition home or self-care (01) ==
LOC: LABSPEC 16:59
PROVIDERS: PCP Family Medicine; Referring Provider Obstetrics & Gynecology; Visit Provider Obstetrics & Gynecology
DX: N89.8 Other specified noninflammatory disorders of vagina (principal)
CPT/HCPCS: 84112

== ENCOUNTER 2024-05-23 17:33 | Outpatient (CLI) | payer OTHER, SELFPAY ==
[2024-05-23 17:51] VITALS: PULSE 98; O2SAT 98
[2024-05-23 17:52] VITALS: BP 113/80; PULSE 89; RESP 16; TEMP 36.3
[2024-05-23 17:59] VITALS: BMI 27.6
[2024-05-23 18:32] LABS: ROM Internal Control Test YES-OK TO RESULT pt. (Internal QC); ROM Patient Test Negative (Negative); Record Kit Lot#, ROM+ K1866
--- NOTE | 2024-05-23 19:21 | OB.TRI.HP_ITS ---
HPI - General HPI Narrative MARTY MCINTOSH, is a 23 y/o @ 38 weeks 6 days who presents to L&D with possible leaking of fluid. She was seen in the office yesterday and a ROM plus was collected and was negative. The LUIS was 6.9 in the office and the plan was for a formal repeat LUIS early next week and close observation. Maternal Data Information HEMA Calculator Estimated Delivery Date Method Current WG Current Estimate 05/31/24 Ultrasound #1 39w 0d Other Estimates 06/08/24 LMP (Certain) 37w 6d PFSH PFSH Medical History Abnormal glucose affecting Seasonal allergies Liver tumor Anemia Acid reflux IBS (irritable bowel syndrome) Fatigue Asthma Home Medications ?Medication ?Instructions ?Recorded ?Last Taken ?Type azelaic acid 15 % topical gel 1 applic topical BID 05/09/23 05/12/24 08:00 History 1 applic aspirin 81 mg tablet,delayed 81 mg PO DAILY 12/02/23 05/22/24 History release vit no.105-iron 30 pkg 05/09/24 05/22/24 History mg-folic acid 1.4 mg-dha 300 mg oral pack Allergy/AdvReac Type Severity Reaction Status Date / Time almond Allergy Severe Anaphylaxis Verified 05/23/24 17:58 Family History Mother Breast cancer 20s Cervical cancer Hypertension Aunt Breast cancer 30s Grandmother Diabetes Hypertension Sister History of recurrent miscarriages Surgical History H/O left breast biopsy Hx of wisdom tooth extraction Social History adopted: No household members: family current occupational status: employed 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 [employer] current occupational exposures/hazards: No pets and animals: Yes pets and animals: cat(s) history of recent travel: Yes (- September) out of state: Yes out of country: No sexually active: Yes Smoking Status: Never smoker second hand exposure: No alcohol intake: current alcohol intake frequency: holidays/special occasions only details: not while substance use type: does not use well-balanced diet: about half the time caffeine: Yes Type: coffee Number of servings: 1 eating out: 1-3 times/week during the past year weight has: decreased > 10 lbs what type of physical activity do you participate in: none price/christian: Presybeterian seatbelt use: always do you feel safe at home: Yes additional social history: Jenifer Larsen's- Melody - [facility] History 1 Elective abortions Hx Para 0 Spontaneous abortions Hx # Term Pregnancies Ectopic pregnancies Hx # Pregnancies Multiple births # of living children Visit Details Expected Delivery Route/Plan Labor Preferences- CB/BF classes: [] labor support person: [] labor intervention preferences: [] pain management options preferred: [] cut cord/dad catch: [] : [] PP control planned: [] discussed possible routes of delivery and associated risks: [] special requests: [] Plans Covid status: [] Flu vaccine: given Tdap vaccine: Rhogam: [] LARC form signed: [] movement and labor precautions reviewed. Problem list reviewed and updated with the most current plan of care details and appropriate orders placed. Relevant counseling for the gestational age provided. Continue routine care and follow up unless otherwise noted in visit notes/problem list details OB Flowsheet Initial Weight: 137 lb Date -?-?-?-?-?-?-?-?-?-?-?-?- EGA Weight BP Urine Prot -?-?-?-?-?-?--?-?-?-?-?-?- Glucose FHR FuHt Pres Dilation -?-?-?-?-?-?-?-?-?-?-?-?- Effaced St Visit Note 11/11/23 -?-?-?-?-?-?-?-?-?-?-?-?- 11w 1d 137 lb 6 oz (+6 oz) 126/76 -?-?-?-?-?-?-?-?-?-?-?-?- 160 -?-?-?-?-?-?-?-?-?-?-?-?- JV- JV-CRL is off by over a week . new hema given. JENNIFER nurse. wants genetic and NIPT. 12/13/23 -?-?-?-?-?-?-?-?-?-?-?-?- 15w 5d 139 lb (+2 lb) 105/71 Negative -?-?-?-?-?-?-?-?-?-?-?-?- Negative 154 -?-?-?-?-?-?-?-?-?-?-?-?- JV- pt to have M RI to determine sizes of the individual hepatic hemangiomas and if they are increasing in size. No complaints today. anatomy us ordered. 01/09/24 -?-?-?-?-?-?-?-?-?-?-?-?- 19w 4d 144 lb 4 oz (+7 lb 4 oz) 104/68 Negative -?-?-?-?-?-?-?-?-?-?-?-?- Negative 154 -?-?-?-?-?-?-?-?-?-?-?-?- KW-no vb/some cr amping in abd and low back. urine and ATB sent. possible flutters. Anatomy US scheduled. 02/06/24 -?-?-?-?-?-?-?-?-?-?-?-?- 23w 4d 148 lb 2 oz (+11 lb 2 oz) 124/70 Negative -?-?-?-?-?-?-?-?-?-?-?-?- Negative 150 -?-?-?-?-?-?-?-?-?--?-?-?- LC- no vb/ctx/lo f. +fm. 28 week labs ordered. 03/06/24 -?-?-?-?-?-?-?-?-?-?-?-?- 27w 5d 152 lb (+15 lb) 120/82 Negative -?-?-?-?-?-?-?-?-?-?-?-?- Negative 140 29 -?-?-?-?-?-?-?-?-?-?-?-?- SM- no vb lof go od fm no regular ctx ordered 3 hr gtt 03/27/24 -?-?-?-?-?--?-?-?-?-?-?-?- 30w 5d 156 lb (+19 lb) 90/69 Negative -?-?-?-?-?-?-?-?-?-?-?-?- Negative 140 31 -?-?-?-?-?-?-?-?-?-?-?-?- kw- no vb/lof/ct x. good fm. Tdap and LARC today. kw- no vb/lof/ctx. good fm. Tdap and LARC today. Having some dizziness, XIONG, and lightheadedness. Labs ordered but suspect hypotension. Compression hose and hydration encouraged 04/09/24 -?-?-?-?-?-?-?-?-?-?-?-?- 32w 4d 157 lb (+20 lb) 114/70 Negative -?-?-?-?-?-?-?-?-?-?-?-?- Negative 135 32 -?-?-?-?-?-?-?-?-?-?-?-?- KW- no vb/lof/ct x. good fm. 04/24/24 -?-?-?-?-?-?-?-?-?-?-?-?- 34w 5d 156 lb (+19 lb) 107/70 Negative -?-?-?-?-?-?-?-?-?-?-?-?- Negative 128 35 -?-?-?-?-?-?-?-?-?-?-?-?- JV- no lof, vagi nal bleeding, or dec fm 05/04/24 -?-?-?-?-?-?-?-?-?-?-?-?- 36w 1d 158 lb 2 oz (+21 lb 2 oz) 108/66 Negative -?-?-?-?-?-?-?-?-?-?-?-?- Negative 126 36 Cephalic 0 .5 -?-?-?-?-?-?-?-?-?-?-?-?- -4 MH-Work in for itching of hands and feet. Also w/RUQ pain. Good FM. NO VB. Labs, US. MH-Work in for itching of xiong nds and feet. Also w/RUQ pain. Good FM. NO VB. Labs, US. GBS done 05/14/24 -?-?-?-?-?-?-?-?-?-?-?-?- 37w 4d 160 lb (+23 lb) 87/62 Negative -?-?-?-?-?-?-?-?-?-?-?-?- Negative 160 38 Cephalic 0 -?-?-?-?-?-?-?-?-?-?-?-?- -2 JV- bile acids were normal and no longer has itching. no need for BPPs but will do fluid levels in office. pt reassured. no lof, vaginal bleeding, or dec fm. 05/22/24 -?-?-?-?-?-?-?-?-?-?-?-?- 38w 5d 161 lb 6 oz (+24 lb 6 oz) 118/76 Negative -?-?-?-?-?-?-?-?-?-?-?-?- Negative 155 37 Cephalic 1 -?-?-?-?-?-?-?-?-?-?-?-?- 50 -2 JV- no fur ther headaches. patient states is feeling well JV- no further headaches. nisreen warner states is feeling well. luis today with our machine in office is 6.8. sending rom plus stat. was 16 last check. ROS Constitutional Constitutional: Reports systems reviewed and no addt'l complaints, except as documented Gastrointestinal Gastrointestinal: Denies bloating, constipation, cramping, diarrhea, nausea or vomiting Genitourinary Genitourinary: Reports other Details: Denies vaginal odor, vaginal bleeding, or vaginal discharge ; Denies difficulty urinating or flank pain NST FHR Rate Baby A Baseline: 115 Variability:: Moderate Accelerations:: 15 x 15 Decelerations:: None NST Reactive:: Yes FHR Category:: Category I Assessment & Plan (1) Headache in : COMMENT: pre e labs nl, cat 1, resolving with Tylenol, BPP (2) Anemia: QUALIFIERS: Anemia type: iron deficiency Iron deficiency anemia type: unspecified iron deficiency Qualified Code(s): D50.9 - Iron deficiency anemia, unspecified COMMENT: ferrous sulfate daily (3) Anxiety and depression: COMMENT: Zoloft (4) Abnormal glucose affecting : COMMENT: nl 3 hr GTT (5) Liver tumor (benign): COMMENT: 5 tumors, monitored annually with MRI, await until after (6) COVID-19 affecting in first trimester: COMMENT: asa 81 mg daily (7) Supervision of high-risk : QUALIFIERS: Trimester: third trimester Qualified Code(s): O09.93 - Supervision of high risk , unspecified, third trimester COMMENT: PRR , HEMA 06/08/24, boy Terry (8) : QUALIFIERS: Weeks of gestation: 38 weeks Qualified Code(s): Z3A.38 - 38 weeks gestation of COMMENT: Neg GBS. anatomy nl, NIPT low risk, carrier neg. (9) Family history of breast cancer: COMMENT: empower testing offered PLAN: Plan ROM plus was negative. nst reactive sending home now and plan formal Luis saturday or saturday,. Charges/Coding Multi Select Codes Urinary/Genital Urinary/Genital CPT Codes: 29669-68 non-stress test Interp
== END 2024-05-23 19:00 | disposition home or self-care (01) ==
LOC: WPOUT 17:36 → WP 17:37
PROVIDERS: PCP Family Medicine; Visit Provider Obstetrics & Gynecology
DX: Z03.71 Encounter for suspected problem with amniotic cavity and membrane ruled out (principal); K21.9 Gastro-esophageal reflux disease without esophagitis; J45.909 Unspecified asthma, uncomplicated; O99.891 Other specified diseases and conditions complicating pregnancy; R51.9 Headache, unspecified; O99.013 Anemia complicating pregnancy, third trimester; D50.9 Iron deficiency anemia, unspecified; O99.343 Other mental disorders complicating pregnancy, third trimester; Z79.899 Other long term (current) drug therapy; F32.A Depression, unspecified; F41.9 Anxiety disorder, unspecified; Z3A.38 38 weeks gestation of pregnancy; Z79.82 Long term (current) use of aspirin; O99.513 Diseases of the respiratory system complicating pregnancy, third trimester; O99.613 Diseases of the digestive system complicating pregnancy, third trimester
CPT/HCPCS: 59025; 59050; 84112; 99221; G0378

== ENCOUNTER 2024-05-25 14:04 | Inpatient (IN) | payer OTHER, SELFPAY ==
[2024-05-25] VITALS (10 sets, daily range): BP systolic 100–114; BP diastolic 59–72; PULSE 70–106; RESP 16; TEMP 36.2–37.2; O2SAT 96–99; BMI 27.4
[2024-05-25] MEDS: Lactated Ringers 1,000 ML 50 ML IV (14:30)
[2024-05-25 14:52] LABS: Absolute Lymphocyte Count 1.29 X10^3/uL (0.83-4.51); Absolute Neutrophil Count 5.4 X10^3/uL (2.0-7.7); Basophil# 0.03 X10^3/uL; Basophil% 0.4 % (0-1); Eosinophil# 0.06 X10^3/uL; Eosinophils% 0.8 % (0-5); Hematocrit 34.7 % (37-47); Hemoglobin 11.6 g/dL (12.0-15.0); Lymphocyte # 1.29 X10^3/ul (0.83-4.51); Lymphocyte % 17.9 % (19-41); Mean Corp Hgb Conc 33.4 g/dL (32-36); Mean Corpuscular Hgb 27.9 pg (27.0-32.0); Mean Corpuscular Volume 83.4 fL (81-99); Monocyte% 5.5 % (0-10); NRBC Flagged by Analyzer 0 % (0-5); Platelet Count 216 K/mm3 (150-450); RBC Distribution Width CV 13.1 % (11.6-14.6); RBC Distribution Width SD 39.1 fl (35.1-43.9); Red Blood Count 4.16 M/mm3 (4.2-5.4); White Blood Count 7.2 K/mm3 (4.4-11.0)
[2024-05-25 15:30] LABS: Syphilis Antibodies Non-reactive
--- NOTE | 2024-05-25 16:27 | HP.PCM.OB_ITS ---
HPI - General General Date of Admission: 05/25/24 Date of Service: 05/25/24 HPI Narrative MARTY MCINTOSH, is a 23 F who presents at 39.1 with 4/8 BPP today with LUIS 8, last seen in office LUIS 6.9. Maternal Data Information HEMA Calculator Estimated Delivery Date Method Current WG Current Estimate 05/31/24 Ultrasound #1 39w 1d Other Estimates 06/08/24 LMP (Certain) 38w 0d PFSH PFSH Medical History (Updated 05/25/24 @ 14:24 by Khloe Stahl) Oligohydramnios Liver disease Abnormal glucose affecting Seasonal allergies Liver tumor Anemia Acid reflux IBS (irritable bowel syndrome) Fatigue Asthma Home Medications ?Medication ?Instructions ?Recorded ?Last Taken ?Type azelaic acid 15 % topical gel 1 applic topical BID 05/09/23 05/12/24 08:00 History 1 applic aspirin 81 mg tablet,delayed 81 mg PO DAILY 12/02/23 05/24/24 21:00 History release 81 mg vit no.105-iron 30 1 pkg PO DAILY 05/09/24 05/24/24 21:00 History mg-folic acid 1.4 mg-dha 300 mg 1 pkg oral pack Allergy/AdvReac Type Severity Reaction Status Date / Time almond Allergy Severe Anaphylaxis Verified 05/25/24 13:55 Family History Mother Breast cancer 20s Cervical cancer Hypertension Aunt Breast cancer 30s Grandmother Diabetes Hypertension Sister History of recurrent miscarriages Surgical History H/O left breast biopsy Hx of wisdom tooth extraction Social History adopted: No household members: family current occupational status: employed 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 [email or web address] current occupational exposures/hazards: No pets and animals: Yes pets and animals: cat(s) history of recent travel: Yes (- September) out of state: Yes out of country: No sexually active: Yes Smoking Status: Never smoker second hand exposure: No alcohol intake: current alcohol intake frequency: holidays/special occasions only details: not while substance use type: does not use well-balanced diet: about half the time caffeine: Yes Type: coffee Number of servings: 1 eating out: 1-3 times/week during the past year weight has: decreased > 10 lbs what type of physical activity do you participate in: none price/jainism: Holiness seatbelt use: always do you feel safe at home: Yes additional social history: Jenifer Larsen's- Melody - [facility] History 1 Elective abortions Hx Para 0 Spontaneous abortions Hx # Term Pregnancies Ectopic pregnancies Hx # Pregnancies Multiple births # of living children Visit Details Expected Delivery Route/Plan Labor Preferences- CB/BF classes: [] labor support person: [] labor intervention preferences: [] pain management options preferred: [] cut cord/dad catch: [] : [] PP control planned: [] discussed possible routes of delivery and associated risks: [] special requests: [] Plans Covid status: [] Flu vaccine: given Tdap vaccine: Rhogam: [] LARC form signed: [] movement and labor precautions reviewed. Problem list reviewed and updated with the most current plan of care details and appropriate orders placed. Relevant counseling for the gestational age provided. Continue routine care and follow up unless otherwise noted in visit notes/problem list details OB Flowsheet Initial Weight: 137 lb Date -?-?-?-?-?-?-?-?-?-?-?-?- EGA Weight BP Urine Prot -?-?-?-?-?-?-?-?-?-?-?-?- Glucose FHR FuHt Pres Dilation -?-?--?-?-?-?-?-?-?-?-?-?- Effaced St Visit Note 11/11/23 -?-?-?-?-?-?-?-?-?-?-?-?- 11w 1d 137 lb 6 oz (+6 oz) 126/76 -?-?-?-?-?-?-?-?-?-?-?-?- 160 -?-?-?-?-?-?-?-?-?-?-?-?- JV- JV-CRL is off by over a week . new hema given. JENNIFER nurse. wants genetic and NIPT. 12/13/23 -?-?-?-?-?-?-?-?-?-?-?-?- 15w 5d 139 lb (+2 lb) 105/71 Negative -?-?-?-?-?-?-?-?-?-?-?-?- Negative 154 -?-?-?-?-?-?-?-?-?-?-?-?- JV- pt to have M RI to determine sizes of the individual hepatic hemangiomas and if they are increasing in size. No complaints today. anatomy us ordered. 01/09/24 -?-?-?-?-?-?-?-?-?-?-?-?- 19w 4d 144 lb 4 oz (+7 lb 4 oz) 104/68 Negative -?-?-?-?-?-?-?-?-?-?-?-?- Negative 154 -?-?-?-?-?-?-?-?-?-?-?-?- KW-no vb/some cr amping in abd and low back. urine and ATB sent. possible flutters. Anatomy US scheduled. 02/06/24 -?-?-?-?-?-?-?-?-?-?-?-?- 23w 4d 148 lb 2 oz (+11 lb 2 oz) 124/70 Negative -?-?-?-?-?-?-?-?-?-?-?-?- Negative 150 -?-?-?-?-?-?-?-?-?-?-?-?- LC- no vb/ctx/lo f. +fm. 28 week labs ordered. 03/06/24 -?-?-?-?-?-?-?-?-?-?-?-?- 27w 5d 152 lb (+15 lb) 120/82 Negative -?-?-?-?-?-?-?-?-?-?-?-?- Negative 140 29 -?-?-?-?-?-?-?-?-?-?-?-?- SM- no vb lof go od fm no regular ctx ordered 3 hr gtt 03/27/24 -?-?-?-?-?-?-?-?-?-?-?-?- 30w 5d 156 lb (+19 lb) 90/69 Negative -?-?-?-?-?-?-?-?-?-?-?-?- Negative 140 31 -?-?-?-?-?-?-?-?-?-?-?-?- kw- no vb/lof/ct x. good fm. Tdap and LARC today. kw- no vb/lof/ctx. good fm. Tdap and LARC today. Having some dizziness, XIONG, and lightheadedness. Labs ordered but suspect hypotension. Compression hose and hydration encouraged 04/09/24 -?-?-?-?-?-?-?-?-?-?-?-?- 32w 4d 157 lb (+20 lb) 114/70 Negative -?-?-?-?-?-?-?-?-?-?-?-?- Negative 135 32 -?-?-?-?-?-?-?-?-?-?-?-?- KW- no vb/lof/ct x. good fm. 04/24/24 -?-?-?-?-?-?-?-?-?-?-?-?- 34w 5d 156 lb (+19 lb) 107/70 Negative -?-?-?-?-?-?-?-?-?-?-?-?- Negative 128 35 -?-?-?-?-?-?-?-?-?-?-?-?- JV- no lof, vagi nal bleeding, or dec fm 05/04/24 -?-?-?-?-?-?-?-?-?-?-?-?- 36w 1d 158 lb 2 oz (+21 lb 2 oz) 108/66 Negative -?-?-?-?-?-?-?-?-?-?-?-?- Negative 126 36 Cephalic 0 .5 -?-?-?-?-?-?-?-?-?-?-?-?- -4 -Work in for itching of hands and feet. Also w/RUQ pain. Good FM. NO VB. Labs, US. MH-Work in for itching of xiong nds and feet. Also w/RUQ pain. Good FM. NO VB. Labs, US. GBS done 05/14/24 -?-?-?-?-?-?-?-?-?-?-?-?- 37w 4d 160 lb (+23 lb) 87/62 Negative -?-?-?-?-?-?-?-?-?--?-?-?- Negative 160 38 Cephalic 0 -?-?-?-?-?-?-?-?-?-?-?-?- -2 JV- bile acids were normal and no longer has itching. no need for BPPs but will do fluid levels in office. pt reassured. no lof, vaginal bleeding, or dec fm. 05/22/24 -?-?-?-?-?-?-?-?-?-?-?-?- 38w 5d 161 lb 6 oz (+24 lb 6 oz) 118/76 Negative -?-?-?-?-?-?-?-?-?-?-?-?- Negative 155 37 Cephalic 1 -?-?-?-?-?-?-?-?-?-?-?-?- 50 -2 JV- no fur ther headaches. patient states is feeling well JV- no further headaches. nisreen warner states is feeling well. luis today with our machine in office is 6.8. sending rom plus stat. was 16 last check. Vital Signs Vital Signs Vital Signs: 05/25/24 13:57 05/25/24 13:57 05/25/24 13:59 Temperature Temperature Source Pulse Rate 95 Respiratory Rate Blood Pressure 102/71 BP Systolic 102 BP Diastolic 71 Pulse Ox 97 05/25/24 13:59 05/25/24 14:02 05/25/24 14:02 Temperature Temperature Source Pulse Rate 86 81 Respiratory Rate Blood Pressure 109/70 BP Systolic 109 BP Diastolic 70 Pulse Ox 05/25/24 14:02 05/25/24 14:02 05/25/24 14:02 Temperature 97.8 F Temperature Source Temporal Pulse Rate Respiratory Rate 16 Blood Pressure BP Systolic BP Diastolic Pulse Ox Weight Weight: 160 lb Body Mass Index (BMI) 27.4 Labs Labs Labs: Blood Type O POSITIVE Antibody Screen NEGATIVE Hct 34.7 % (37-47) L Hgb 11.6 g/dL (12.0-15.0) L Obstetrics Ultrasound Syphilis Total Ab Non-reactive Rubella IgG Antibody Reactive (Nonreactive) Hep Bs Antigen Non-Reactive (Nonreactive) Hepatitis C Antibody Non-Reactive (Nonreactive) Chlamydia DNA ([facility]AMA) Negative (Negative) N.gonorrhoeae DNA (USAMA) Negative (Negative) HIV 1&2 Antibody Non-Reactive (Nonreactive) Glucose 1 Hr 50 gm 148 mg/dL (70-140) H Gest Glucose Tolerance MG/DL Miscellaneous Test
--- NOTE | 2024-05-25 16:27 | PCM.HP.OB ---
HPI - General General Date of Admission: 05/25/24 Date of Service: 05/25/24 HPI Narrative MARTY MCINTOSH, is a 23 F who presents at 39.1 with 4/8 BPP today with LUIS 8, last seen in office LUIS 6.9. Maternal Data Information HEMA Calculator Estimated Delivery Date Method Current WG Current Estimate 05/31/24 Ultrasound #1 39w 1d Other Estimates 06/08/24 LMP (Certain) 38w 0d PFSH PFSH Medical History (Updated 05/25/24 @ 16:35 by Katarzyna Montes De Oca CNM) Oligohydramnios Liver disease Abnormal glucose affecting Seasonal allergies Liver tumor Anemia Acid reflux IBS (irritable bowel syndrome) Fatigue Asthma Home Medications ?Medication ?Instructions ?Recorded ?Last Taken ?Type azelaic acid 15 % topical gel 1 applic topical BID 05/09/23 05/12/24 08:00 History 1 applic aspirin 81 mg tablet,delayed 81 mg PO DAILY 12/02/23 05/24/24 21:00 History release 81 mg vit no.105-iron 30 1 pkg PO DAILY 05/09/24 05/24/24 21:00 History mg-folic acid 1.4 mg-dha 300 mg 1 pkg oral pack Allergy/AdvReac Type Severity Reaction Status Date / Time almond Allergy Severe Anaphylaxis Verified 05/25/24 13:55 Family History Mother Breast cancer 20s Cervical cancer Hypertension Aunt Breast cancer 30s Grandmother Diabetes Hypertension Sister History of recurrent miscarriages Surgical History H/O left breast biopsy Hx of wisdom tooth extraction Social History adopted: No household members: family current occupational status: employed 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 [employer] current occupational exposures/hazards: No pets and animals: Yes pets and animals: cat(s) history of recent travel: Yes (- September) out of state: Yes out of country: No sexually active: Yes Smoking Status: Never smoker second hand exposure: No alcohol intake: current alcohol intake frequency: holidays/special occasions only details: not while substance use type: does not use well-balanced diet: about half the time caffeine: Yes Type: coffee Number of servings: 1 eating out: 1-3 times/week during the past year weight has: decreased > 10 lbs what type of physical activity do you participate in: none price/spiritism: Nondenominational seatbelt use: always do you feel safe at home: Yes additional social history: Jen[facility]- [facility] - [facility] History 1 Elective abortions Hx Para 0 Spontaneous abortions Hx # Term Pregnancies Ectopic pregnancies Hx # Pregnancies Multiple births # of living children Visit Details Expected Delivery Route/Plan Labor Preferences- CB/BF classes: [] labor support person: [] labor intervention preferences: [] pain management options preferred: [] cut cord/dad catch: [] : [] PP control planned: [] discussed possible routes of delivery and associated risks: [] special requests: [] Plans Covid status: [] Flu vaccine: given Tdap vaccine: Rhogam: [] LARC form signed: [] movement and labor precautions reviewed. Problem list reviewed and updated with the most current plan of care details and appropriate orders placed. Relevant counseling for the gestational age provided. Continue routine care and follow up unless otherwise noted in visit notes/problem list details OB Flowsheet Initial Weight: 137 lb Date <del>?</del> EGA Weight BP Urine Prot <del>?</del> Glucose FHR FuHt Pres Dilation <del>?</del> Effaced St Visit Note 11/11/23 <del>?</del> 11w 1d 137 lb 6 oz (+6 oz) 126/76 <del>?</del> 160 <del>?</del> JV- JV-CRL is off by over a week. new hema given. [facility] nurse. wants genetic and NIPT. 12/13/23 <del>?</del> 15w 5d 139 lb (+2 lb) 105/71 Negative <del>?</del> Negative 154 <del>?</del> JV- pt to have MRI to determine sizes of the individual hepatic hemangiomas and if they are increasing in size. No complaints today. anatomy us ordered. 01/09/24 <del>?</del> 19w 4d 144 lb 4 oz (+7 lb 4 oz) 104/68 Negative <del>?</del> Negative 154 <del>?</del> KW-no vb/some cramping in abd and low back. urine and ATB sent. possible flutters. Anatomy US scheduled. 02/06/24 <del>?</del> 23w 4d 148 lb 2 oz (+11 lb 2 oz) 124/70 Negative <del>?</del> Negative 150 <del>?</del> LC- no vb/ctx/lof. +fm. 28 week labs ordered. 03/06/24 <del>?</del> 27w 5d 152 lb (+15 lb) 120/82 Negative <del>?</del> Negative 140 29 <del>?</del> SM- no vb lof good fm no regular ctx ordered 3 hr gtt 03/27/24 <del>?</del> 30w 5d 156 lb (+19 lb) 90/69 Negative <del>?</del> Negative 140 31 <del>?</del> kw- no vb/lof/ctx. good fm. Tdap and LARC today. kw- no vb/lof/ctx. good fm. Tdap and LARC today. Having some dizziness, XIONG, and lightheadedness. Labs ordered but suspect hypotension. Compression hose and hydration encouraged 04/09/24 <del>?</del> 32w 4d 157 lb (+20 lb) 114/70 Negative <del>?</del> Negative 135 32 <del>?</del> KW- no vb/lof/ctx. good fm. 04/24/24 <del>?</del> 34w 5d 156 lb (+19 lb) 107/70 Negative <del>?</del> Negative 128 35 <del>?</del> JV- no lof, vaginal bleeding, or dec fm 05/04/24 <del>?</del> 36w 1d 158 lb 2 oz (+21 lb 2 oz) 108/66 Negative <del>?</del> Negative 126 36 Cephalic 0.5 <del>?</del> -4 MH-Work in for itching of hands and feet. Also w/RUQ pain. Good FM. NO VB. Labs, US. MH-Work in for itching of hands and feet. Also w/RUQ pain. Good FM. NO VB. Labs, US. GBS done 05/14/24 <del>?</del> 37w 4d 160 lb (+23 lb) 87/62 Negative <del>?</del> Negative 160 38 Cephalic 0 <del>?</del> -2 JV- bile acids were normal and no longer has itching. no need for BPPs but will do fluid levels in office. pt reassured. no lof, vaginal bleeding, or dec fm. 05/22/24 <del>?</del> 38w 5d 161 lb 6 oz (+24 lb 6 oz) 118/76 Negative <del>?</del> Negative 155 37 Cephalic 1 <del>?</del> 50 -2 JV- no further headaches. patient states is feeling well JV- no further headaches. patient states is feeling well. luis today with our machine in office is 6.8. sending rom plus stat. was 16 last check. NST FHR Rate Baby A Baseline: 120 Variability:: Moderate Accelerations:: 15 x 15 Decelerations:: None NST Reactive:: Yes FHR Category:: Category I ROS Cardiovascular Cardiovascular: Denies abdominal pain, chest pain, diaphoresis or dyspnea Respiratory/Chest Respiratory/Chest: Denies change in mental status, chest congestion, chest tightness, cough, shortness of breath at rest, shortness of breath with exertion, breast mass, breast pain, breast skin changes, breast swelling, change in breast shape or nipple discharge Genitourinary Genitourinary: Reports change in urinary stream Musculoskeletal Musculoskeletal: Reports none Integumentary Integumentary: Reports none Neurologic Neurologic: Reports none Psychiatric Psychiatric: Reports none Endocrine Endocrinology: Reports none Hematologic/Lymphatic Hematologic/Lymphatic: Reports none Allergic/Immunologic Allergic/Immunologic: Reports none Vital Signs Vital Signs Vital Signs: 05/25/24 13:57 05/25/24 13:57 05/25/24 13:59 Temperature Temperature Source Pulse Rate 95 Respiratory Rate Blood Pressure 102/71 BP Systolic 102 BP Diastolic 71 Pulse Ox 97 05/25/24 13:59 05/25/24 14:02 05/25/24 14:02 Temperature Temperature Source Pulse Rate 86 81 Respiratory Rate Blood Pressure 109/70 BP Systolic 109 BP Diastolic 70 Pulse Ox 05/25/24 14:02 05/25/24 14:02 05/25/24 14:02 Temperature 97.8 F Temperature Source Temporal Pulse Rate Respiratory Rate 16 Blood Pressure BP Systolic BP Diastolic Pulse Ox Weight Weight: 160 lb Body Mass Index (BMI) 27.4 Physical Exam Const alert, oriented x3 and no apparent distress General Appearance: cooperative, comfortable and well kempt Orientation / Consciousness: awake and oriented to person Exam Limitations: no limitations HEENT normocephalic Neck full ROM Chest inspection of chest normal Resp normal respiratory effort, normal air movement and no retractions Effort and Inspection: able to speak in complete sentences and symmetric chest movement Cardio regular rate Peripheral Pulses: pulses 2+ throughout GI normal to inspection, nondistended, normoactive bowel sounds Inspection: gravid no CVA tenderness and appearance of the vagina normal External Female Exam: normal appearance of the urethra; Negative for external lesion OB / External & Speculum: external exam normal Manual OB Exam: estimated gestational size appropriate and presentation cephalic Uterus Palpation: Negative for uterus tender Extremity normal to inspection Skin no rashes or lesions noted Neuro deep tendon reflexes 2+ bilaterally and gait normal Motor Exam: strength 5/5 throughout and clonus absent Psych Activity / Motor Behavior: appropriate eye contact Speech: normal speech Labs Labs Labs: Blood Type O POSITIVE Antibody Screen NEGATIVE Hct 34.7 % (37-47) L Hgb 11.6 g/dL (12.0-15.0) L Obstetrics Ultrasound Syphilis Total Ab Non-reactive Rubella IgG Antibody Reactive (Nonreactive) Hep Bs Antigen Non-Reactive (Nonreactive) Hepatitis C Antibody Non-Reactive (Nonreactive) Chlamydia DNA (USAMA) Negative (Negative) N.gonorrhoeae DNA (USAMA) Negative (Negative) HIV 1&2 Antibody Non-Reactive (Nonreactive) Glucose 1 Hr 50 gm 148 mg/dL (70-140) H Gest Glucose Tolerance MG/DL Miscellaneous Test Assessment & Plan (1) Encounter for induction of labor: COMMENT: lopez/pit (2) Anemia: QUALIFIERS: Anemia type: iron deficiency Iron deficiency anemia type: unspecified iron deficiency Qualified Code(s): D50.9 - Iron deficiency anemia, unspecified COMMENT: ferrous sulfate daily (3) Liver tumor (benign): COMMENT: 5 tumors, monitored annually with MRI, await until after (4) COVID-19 affecting in first trimester: COMMENT: asa 81 mg daily (5) Supervision of high-risk : QUALIFIERS: Trimester: third trimester Qualified Code(s): O09.93 - Supervision of high risk , unspecified, third trimester COMMENT: PRR , HEMA 06/08/24, boy Terry (6) : QUALIFIERS: Weeks of gestation: 38 weeks Qualified Code(s): Z3A.38 - 38 weeks gestation of COMMENT: Neg GBS. anatomy nl, NIPT low risk, carrier neg. (7) Anxiety and depression: COMMENT: Amparo (8) Abnormal glucose affecting : COMMENT: nl 3 hr GTT PLAN: Plan Patient presents IOL, plan management for with lopez bulb pitocin/AROM. Pain management: plans unmedicated. GBS negative. Management of any complications: none I have reviewed the [facility] and made any clinically relevant updates. updated on admission, exam and poc. co-management for IOL for 4/8 BPP, now at 6/10 with borderline luis.
[2024-05-25] MEDS: Oxytocin 15 Units/NS 250ml 15 UNITS/250 ML IV.SOLN 2 UNITS IV (16:58)
[2024-05-25] MEDS: 0.9% Normal Saline Single 100 ML IV.SOLN. INTRA-UTER (17:24)
[2024-05-26] VITALS (57 sets, daily range): BP systolic 75–133; BP diastolic 44–80; PULSE 71–239; RESP 16–18; TEMP 36.4–37; O2SAT 93–99
--- NOTE | 2024-05-26 05:17 | PN.OBGYN_ITS ---
Subjective Subjective resting comfortably in bed, has been able to sleep through contractions Objective Data Objective Data Vital Signs: Vital Signs Temp Pulse Resp BP Pulse Ox 98.3 F 89 16 106/64 96 05/26/24 04:50 05/26/24 04:51 05/26/24 04:50 05/26/24 04:51 05/26/24 04:50 Weight: 160 lb Body Mass Index (BMI) 27.4 Intake & Output: Intake and Output for Last 24 Hours 05/24/24 05/25/24 05/26/24 23:59 23:59 23:59 Intake Total 47.93 / 47.93 19.2 / 19.2 Balance 47.93 / 47.93 19.2 / 19.2 Lab / Micro Data 05/25/24 14:30 Labs: Laboratory Results - last 24 hr 05/25/24 14:30: WBC 7.2, RBC 4.16 L, Hgb 11.6 L, Hct 34.7 L, MCV 83.4, MCH 27.9, MCHC 33.4, RDW Std Deviation 39.1, RDW Coeff of Josias 13.1, Plt Count 216, MPV 11.0, Immature Gran % (Auto) 0.400, Neut % (Auto) 75.0 H, Lymph % (Auto) 17.9 L, [place] % (Auto) 5.5, Eos % (Auto) 0.8, Baso % (Auto) 0.4, Absolute Neuts (auto) 5.4, Absolute Lymphs (auto) 1.29, Nucleated RBC % 0, Syphilis Total Ab Non- reactive, Blood Type O POSITIVE, Antibody Screen NEGATIVE NST FHR Rate Baby A Baseline: 120 Variability:: Moderate Accelerations:: 15 x 15 Decelerations:: None NST Reactive:: Yes FHR Category:: Category I Uterine Activity:: q2-3 Assessment & Plan (1) Encounter for induction of labor: COMMENT: lopez/pit PLAN: AROM for clear fluid around 0500. on 18 u of pitocin. making small cervical change now /-2
[2024-05-26] MEDS: Lactated Ringers 1,000 ML 200 ML IV (08:30)
[2024-05-26] MEDS: Lactated Ringers 1,000 ML 999 ML IV (08:35)
[2024-05-26] MEDS: Acetaminophen 500 MG Tablet PO (08:54)
[2024-05-26] MEDS: fentaNYL-bupivacaine (epidural) 100 ML BAG EPIDURAL (09:59)
[2024-05-26] MEDS: LACTATED RINGERS 500 ML 999 ML IV ×2 (10:18→11:20)
[2024-05-26] MEDS: Oxytocin 15 Units/NS 250ml 15 UNITS/250 ML IV.SOLN 18 UNITS IV (11:02)
[2024-05-26] MEDS: Ondansetron 4 MG/2 ML Vial IV (11:10)
[2024-05-26] MEDS: Calcium Carbonate 500 MG Tablet 1000 MG PO (11:34)
--- NOTE | 2024-05-26 14:31 | OP.PCM_ITS ---
Assessment & Plan (1) Encounter for induction of labor: COMMENT: lopez/pit (2) Headache in : COMMENT: pre e labs nl, cat 1, resolving with Tylenol, BPP (3) Anemia: QUALIFIERS: Anemia type: iron deficiency Iron deficiency anemia type: unspecified iron deficiency Qualified Code(s): D50.9 - Iron deficiency anemia, unspecified COMMENT: ferrous sulfate daily (4) Liver tumor (benign): COMMENT: 5 tumors, monitored annually with MRI, await until after (5) COVID-19 affecting in first trimester: COMMENT: asa 81 mg daily (6) Supervision of high-risk : QUALIFIERS: Trimester: third trimester Qualified Code(s): O09.93 - Supervision of high risk , unspecified, third trimester COMMENT: PRR , HEMA 06/08/24, boy Terry (7) : QUALIFIERS: Weeks of gestation: 38 weeks Qualified Code(s): Z3A.38 - 38 weeks gestation of COMMENT: Neg GBS. anatomy nl, NIPT low risk, carrier neg. (8) Family history of breast cancer: COMMENT: empower testing offered (9) Anxiety and depression: COMMENT: Zoloft (10) Abnormal glucose affecting : COMMENT: nl 3 hr GTT Maternal Data Information HEMA Calculator Estimated Delivery Date Method Current WG Current Estimate 05/31/24 Ultrasound #1 39w 2d Other Estimates 06/08/24 LMP (Certain) 38w 1d Final HEMA Source: US <20 weeks Gestational age: 39 weeks 2 days Vaginal Delivery Operative Information Date of Procedure: 05/26/24 Pre-Operative Diagnosis: bpp 6/8, 39 weeks Post-Operative Diagnosis: bpp 6/8, 39 weeks Surgery / Procedure Performed: Spontaneous Vaginal Delivery Type of Anesthesia: Epidural Anesthesiologist: Marcio Bar Drain: Lopez to straight drain Estimated Blood Loss: 100cc Findings Description of Procedure: Patient began pushing and delivered the head in the DEBORA presentation. The head was delivered atraumatically. The anterior and posterior shoulders delivered without complication followed by the rest of the and the infant was placed on the maternal abdomen. Delayed cord clamping was employed for approximately 60 seconds. Cord was clamped and cut and gentle traction was applied to the cord and the placenta delivered spontaneously immediately following it was noted to be intact with three-vessel cord. The perineum and vagina were inspected and noted to have a 1st degree laceration. This was repaired using a 2-0 vicryl. EBL was 100 cc. Patient and infant tolerated delivery well. Presentation: Vertex Amniotic Membrane Rupture Type: Spontaneous Amniotic Fluid Description: Clear Placental Delivery Description: Spontaneous Placenta Disposition: [facility] Cord Vessel Description: 3 Vessels Cord Entanglement: Around neck x 1, loose Infant A Gender: Male (1 minute): 89 (5 minute): 9 Delayed Cord Clamping: Yes Post Vaginal Delivery Medications Given After Delivery: IV Pitocin Episiotomy Description: None Laceration: 1st degree Complication Complications: None Multi Select Codes Urinary/Genital Urinary/Genital CPT Codes: 33175 Vaginal Delivery [facility]
--- NOTE | 2024-05-26 14:34 | DCINST_ITS ---
Discharge Instructions Diet Discharge Diet: No restrictions Activity Discharge Activity: Return to Normal Activity, May Not Drive (while taking narcotic pain medications.) and May Shower May resume sexual activity in: 4-6 weeks Dressing / Incision Call your doctor if your incision/area has: Continuous Slow Oozing, Sudden Increased Bleeding, Increased Pain/ Swelling, Increased Redness and Foul Smelling Discharge Follow Up Care Please Follow Up With: Yana Chi DO When: Call [phone] to make an appointment with your doctor in 6 weeks. If you had elevated blood pressure or 4th degree laceration, you will need to be seen in 2 weeks. Test Results: Test results from this visit will be discussed in further detail at your follow- up appointment, if applicable. Discharge Plan Admission Admit Date/Time: 05/25/24 14:04 Attending Provider: Katarzyna Montes De Oca Primary Care Provider: Zach Garg Discharge Orders/Prescriptions Prescriptions: No Action azelaic acid 15 % gel 1 applic topical BID 945-kcnm-paqbh ac-dha 30 mg iron- 1.4 mg-300 mg combo pack 1 pkg PO DAILY aspirin 81 mg tablet,delayed release (DR/EC) 81 mg PO DAILY Referrals / Follow Up: Zach Garg MD [Primary Care Provider] -
[2024-05-26] MEDS: Oxytocin 15 Units/NS 250ml 15 UNITS/250 ML IV.SOLN 83 UNITS IV (15:06)
[2024-05-26] MEDS: 0.9% Saline Lock 10 ML Syringe IV (18:21)
[2024-05-26] MEDS: Ibuprofen 600 MG Tablet PO (18:21)
[2024-05-27] VITALS (12 sets, daily range): BP systolic 90–116; BP diastolic 54–84; PULSE 72–88; RESP 14–16; TEMP 36–37.1; O2SAT 97–100
[2024-05-27] MEDS: Ibuprofen 600 MG Tablet PO ×3 (00:06→15:25)
[2024-05-27] MEDS: Acetaminophen 500 MG Tablet 1000 MG PO ×2 (03:43→16:47)
--- NOTE | 2024-05-27 08:13 | PCM.PN.OB ---
Subjective Subjective Patient doing well without complaints. Tolerating PO. Ambulating and voiding without difficulty. Feeding well. Denies chest pain, shortness of breath, calf pain/swelling, fevers, chills, lightheadedness. Objective Data Objective Data Vital Signs: Vital Signs Temp Pulse Resp BP Pulse Ox O2 Del Method 97.9 F 84 16 110/63 98 Room Air 05/27/24 03:36 05/27/24 03:36 05/27/24 03:36 05/27/24 03:36 05/27/24 03:36 05/27/24 03:36 Oxygen Delivery Method Room Air Weight: 160 lb Body Mass Index (BMI) 27.4 Intake & Output: Intake and Output for Last 24 Hours 05/25/24 05/26/24 05/27/24 23:59 23:59 23:59 Intake Total 47.93 / 47.93 4597.07 / 4597.07 Output Total 2049 / 2049 Balance 47.93 / 47.93 2547.07 / 2547.07 Lab / Micro Data 05/25/24 14:30 Physical Exam Const alert and oriented x3 HEENT normocephalic Eyes PERRL Neck full ROM Resp normal respiratory effort GI soft to palpation GI Narrative: FF below U Assessment & Plan (1) Spontaneous vaginal delivery: COMMENT: 05/26/24 SHAHNAZ Shepherd PLAN: Plan s/p PPD # 1 1. routine post delivery care 2. breast feeding- support given 3. rh positive 4. rubella immune 5. home today
--- NOTE | 2024-05-27 08:16 | PCM.DC.SUM ---
Providers Date of Admission: 05/25/24 Primary Care Physician: Dr. Zach Garg MD Reason For Visit: VAGINAL DELIVERY Diagnosis Discharge Diagnosis (1) Spontaneous vaginal delivery: Status: Acute Code(s): O80 - Encounter for full-term uncomplicated delivery Plan s/p PPD # 1 1. routine post delivery care 2. breast feeding- support given 3. rh positive 4. rubella immune 5. home today Medications at Discharge Home Medications azelaic acid 15 % topical gel 1 applic topical BID 05/09/23 aspirin 81 mg tablet,delayed release 81 mg PO DAILY 12/02/23 vit no.105-iron 30 mg-folic acid 1.4 mg-dha 300 mg oral pack 1 pkg PO DAILY 05/09/24 Weight / BMI Weight Weight: 160 lb Body Mass Index (BMI) 27.4 ABG / Lab / Microbiology Data 05/25/24 14:30 D/C Instructions Discharge Activity: Return to Normal Activity, May Not Drive (while taking narcotic pain medications.) and May Shower May resume sexual activity in: 4-6 weeks Additional Activity Instructions: Nothing in the vagina for 4-6 weeks. You may return to work/school in 6 weeks. Call your doctor if your incision/area has: Continuous Slow Oozing, Sudden Increased Bleeding, Increased Pain/ Swelling, Increased Redness and Foul Smelling Discharge Please Follow Up With: Yana Chi DO When: Call [phone] to make an appointment with your doctor in 6 weeks. If you had elevated blood pressure or 4th degree laceration, you will need to be seen in 2 weeks. Meaningful Use Info Ischemic Stroke Statin Dosing Therapy Reference: STATIN DOSE THERAPY REFERENCE: * Patients > 75 years receive moderate or high dose statin therapy. * Patients 75 years or YOUNGER should receive HIGH intensity statin dose unless contraindicated. You will be required to document reason for non-treatment if statin daily dose does not meet guidelines. HIGH DOSE STATIN THERAPY DAILY Atorvastatin > than or = to 40 mg Rosuvastatin > than or = to 20 mg Amlodipine + Atorvastatin > than or = to 2.5/40 mg Ezetimibe + Simvastatin 10/80 mg Simvastatin 80mg Discharge Plan Admission Admit Date/Time: 05/25/24 14:04 Attending Provider: Katarzyna Montes De Oca Primary Care Provider: Zach Garg Discharge Orders/Prescriptions Prescriptions: No Action azelaic acid 15 % gel 1 applic topical BID 500-ilif-xehva ac-dha 30 mg iron- 1.4 mg-300 mg combo pack 1 pkg PO DAILY aspirin 81 mg tablet,delayed release (DR/EC) 81 mg PO DAILY Referrals / Follow Up: Zach Garg MD [Primary Care Provider] -
--- NOTE | 2024-05-27 14:46 | CASEMGMT ---
Social Work Assessment Labor and Delivery Unit Patient Address: [address] [place] [address] [address], [place] [address] Phone number: [phone] Date of Referral: 05/25/24 Time of Referral:? 1419 Referred By: Katarzyna Montes De Oca Date of Intervention: 05/27/24?? Time of Intervention:? 1345 Reason for Referral:? her father hx etoh and drugs. She has no contact with him Sw completed chart review and acknowledges social work consult. Sw presented to bedside and introduced self to mother of baby (MOB- Merna) and father of baby (FOB- Terry Nichols). Sw explained reason for sw involvement and completed psychosocial assessment. History obtained from: medical records, MOB and FOB Household composition: Currently residing in the family home is MOB, FOB and baby when ready for discharge. Parents deny any issues or concerns with current housing. Patient's parent/guardian status:?Parents report that they have known each other for a while, but started dating while working together at [employer]. They have been together for almost a year. No reported concerns of domestic violence or intimate partner violence. This is first baby for both parents. Medical History: ?KASSANDRA is 24 year old female who is 1, para 0- now 1 following labor and delivery of . KASSANDRA received routine care during with [facility]. KASSANDRA presented to hospital for scheduled induction of labor due to BBP and low fluid. Baby was born via vaginal delivery on 05/26/24. Baby boy, named Joao Landaverde, was born weighing 6lb 12oz with apgars of 9 and 9 at one and five minutes of life, respectfully. KASSANDRA states that baby will be followed by Dr. Bey for pediatrics. KASSANDRA is working on breast feeding and hoping to meet with . Charlie encouraged KASSANDRA to schedule follow up appointment once she is discharged. Educational Status:? Both parents graduated from high school and have or are working on advanced degrees. No concerns with reading, learning or comprehension. Financial Status: Both parents are gainfully employed outside of the home. 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 FOB is a behavioral tech at [employer]. Supplies:?? Parents have obtained all necessary baby supplies, including: car seat, safe sleep space, clothes, diapers and wipes. Childcare/Caregiver(s):? MOB will be the primary caregiver to baby. When both parents have returned to work they have childcare arranged. Transportation:?? Both parents have their drivers license and reliable means of transportation. No barriers. Programs/Agencies Involved: Parents are not connected to any community resources that help them financially. ??? Children Services/Legal Issues:???No history of children services involvement, no issues or concerns warranting referral to be made at this time. Behavioral Health Issues: ??Mental Health History:?Both parents deny mental health history or diagnoses. ?? Substance Use History:??Parents deny substance use prior to and during . Family History:???MOB states that her father is an alcoholic. MOB states that she is no in contact with him and he will not be a caregiver to baby. Sw educated parents on utilizing healthy and safe coping skills opposed to using drugs or alcohol. Parents express understanding. ?? Drug Screens: ??No drug screens observed in chart review. Family/Social Stressors:? Parents deny any issues, concerns or stressors at this time. Support Systems: Parents report that paternal grandparents are their biggest supports at this time. Depression/Shaken Baby/Safe Sleeping:? Sw educated parents on signs and symptoms of baby blues and mood and anxiety disorders. Parents express understanding. FOB states that if KASSANDRA were to struggle with her mental health during this period, he would be able to recognize that. Sw educated parents on shaken baby prevention and ABCs of safe sleep. Parents express understanding. ASSESSMENT:? MOB and baby admitted following labor and delivery. MOB and FOB deny mental health history. MOB states that her father has history of alcoholism, however she is not close to him and does not talk to him. This is first baby for both parents. FOB observed to hold patient lovingly and appropriately. Parents have obtained all necessary baby supplies and have natural supports in place. PLAN:?MOB and baby to be discharged when medically ready. ?No other services requested or indicated. Addie Koch, HEALTH CARE ANALYST, BIRD TENDER
[2024-05-28 02:55] VITALS: BP 106/63; PULSE 70; PULSE 73; RESP 16; TEMP 36.2; O2SAT 98
[2024-05-28 07:59] VITALS: PULSE 77; O2SAT 96
[2024-05-28 08:00] VITALS: BP 111/58; PULSE 76
[2024-05-28 08:01] VITALS: BP 111/58; PULSE 85; RESP 16; TEMP 36.7; O2SAT 97
--- NOTE | 2024-05-28 08:02 | PCM.PN.OB ---
Subjective Subjective Patient doing well without complaints. Tolerating PO. Ambulating and voiding without difficulty. Feeding well. Denies chest pain, shortness of breath, calf pain/swelling, fevers, chills, lightheadedness. Objective Data Objective Data Vital Signs: Vital Signs Temp Pulse Resp BP Pulse Ox O2 Del Method 97.1 F L 76 16 111/58 L 96 Room Air 05/28/24 02:55 05/28/24 08:00 05/28/24 02:55 05/28/24 08:00 05/28/24 07:59 05/28/24 02:55 Oxygen Delivery Method Room Air Weight: 160 lb Body Mass Index (BMI) 27.4 Intake & Output: Intake and Output for Last 24 Hours 05/26/24 05/27/24 05/28/24 23:59 23:59 23:59 Intake Total 4597.07 / 4597.07 Output Total 2049 / 2049 Balance 2547.07 / 2547.07 Lab / Micro Data 05/25/24 14:30 Physical Exam Const alert and oriented x3 HEENT normocephalic Eyes PERRL Neck full ROM Resp normal respiratory effort GI soft to palpation GI Narrative: FF below U Assessment & Plan (1) Spontaneous vaginal delivery: COMMENT: 05/26/24 SHAHNAZ Shepherd PLAN: Plan s/p PPD # 2 1. routine post delivery care 2. breast feeding- support given 3. rh positive 4. rubella immune 5. home today
[2024-05-28] MEDS: Senna/Docusate Sodium 1 Tablet PO (08:04)
[2024-05-28] MEDS: Acetaminophen 500 MG Tablet 1000 MG PO (08:04)
[2024-05-28] MEDS: Ibuprofen 600 MG Tablet PO (08:04)
--- NOTE | 2024-06-01 15:21 | NURSING ---
F/up phone call performed, no ans, LVM
== END 2024-05-28 10:55 | disposition home or self-care (01) | DRG 807 ==
LOC: WPOUT 14:09 → WP 14:09
PROVIDERS: Obstetrics & Gynecology; Admitting Provider Registered Nurse; PCP Family Medicine; Referring Provider Registered Nurse; Visit Provider Registered Nurse
DX: O41.03X0 Oligohydramnios, third trimester, not applicable or unspecified (principal); Z37.0 Single live birth; O99.344 Other mental disorders complicating childbirth; D13.4 Benign neoplasm of liver; D50.9 Iron deficiency anemia, unspecified; F32.A Depression, unspecified; F41.9 Anxiety disorder, unspecified; O99.02 Anemia complicating childbirth; O99.892 Other specified diseases and conditions complicating childbirth; R51.9 Headache, unspecified; O69.81X0 Labor and delivery complicated by cord around neck, without compression, not applicable or unspecified; O70.0 First degree perineal laceration during delivery; Z3A.39 39 weeks gestation of pregnancy; Z79.82 Long term (current) use of aspirin; Z79.899 Other long term (current) drug therapy; Z86.16 Personal history of COVID-19
CPT/HCPCS: 59025; 59050; 85025; 86780; 86850; 86900; 86901; 99221; J7120; A4216; G0378; J2405

== ENCOUNTER → 2024-05-25 | Outpatient (CLI) | payer OTHER, SELFPAY ==
--- NOTE | 2024-05-25 12:48 | US_ITS ---
STUDY: OBSTETRICAL ULTRASOUND - BIOPHYSICAL PROFILE REASON FOR EXAM: Female, 23 years old borderline low LUIS LMP: August 25, 2023. PRIOR ULTRASOUND: Comparison is made with prior study dated May 18, 2024. TECHNIQUE: Transabdominal TECHNICAL QUALITY: Adequate. FINDINGS: There is a single intrauterine fetus. The fetus is in a cephalic presentation. There is demonstrated cardiac activity with a heart rate of 144 bpm. The largest amniotic fluid pocket measures 3 cm x 2.5 cm. The amniotic fluid index (LUIS) is 8 cm. The placenta is anterior in location and is not low lying. There are Grade 2 placental changes. Age by LMP: 39 weeks, 1 days. HEMA by LMP: May 31, 2024. BIOPHYSICAL PROFILE: Breathing Movements (FBM): 0 Gross Body Movements (GBM): 2 Tone (FT): 0 Amniotic Fluid Volume (AFV): 2 TOTAL SCORE: 4 / 8 US/Biophysical Prof W/O Non Stres IMPRESSION: biophysical profile of 4/8. The attending physician was notified. Electronically Signed: Jim Cartwright MD at 14:09 EDT ,
== END | disposition home or self-care (01) ==
LOC: US 12:46
PROVIDERS: PCP Family Medicine; Referring Provider Obstetrics & Gynecology; Visit Provider Obstetrics & Gynecology
DX: O09.93 Supervision of high risk pregnancy, unspecified, third trimester (principal); Z3A.00 Weeks of gestation of pregnancy not specified
CPT/HCPCS: 76819

== ENCOUNTER → 2024-07-15 | Outpatient (CLI) | payer OTHER, SELFPAY ==
[2024-07-15 11:33] LABS: Absolute Lymphocyte Count 1.28 X10^3/uL (0.83-4.51); Absolute Neutrophil Count 2.7 X10^3/uL (2.0-7.7); Basophil# 0.04 X10^3/uL; Basophil% 0.9 % (0-1); Eosinophil# 0.09 X10^3/uL; Eosinophils% 2.1 % (0-5); Hematocrit 36.9 % (37-47); Hemoglobin 11.7 g/dL (12.0-15.0); Lymphocyte # 1.28 X10^3/ul (0.83-4.51); Lymphocyte % 29.8 % (19-41); Mean Corp Hgb Conc 31.7 g/dL (32-36); Mean Corpuscular Hgb 27.3 pg (27.0-32.0); Mean Platelet Vol. 10.6 fl (6.2-12.0); Monocyte# 0.21 X10^3/uL; Monocyte% 4.9 % (0-10); NRBC Flagged by Analyzer 0 % (0-5); Neutrophil # 2.67 X10^3/uL (2.7-7.7); Neutrophil % 62.1 % (47-70); Platelet Count 246 K/mm3 (150-450); RBC Distribution Width CV 12.8 % (11.6-14.6); RBC Distribution Width SD 39.8 fl (35.1-43.9); Red Blood Count 4.29 M/mm3 (4.2-5.4); White Blood Count 4.3 K/mm3 (4.4-11.0)
== END | disposition home or self-care (01) ==
LOC: LAB 11:14
PROVIDERS: PCP Family Medicine; Referring Provider Obstetrics & Gynecology; Visit Provider Obstetrics & Gynecology
DX: D50.9 Iron deficiency anemia, unspecified (principal)
CPT/HCPCS: 36415; 85025

== ENCOUNTER → 2024-07-28 | Outpatient (CLI) | payer OTHER, SELFPAY ==
--- NOTE | 2024-07-28 10:04 | CT_ITS ---
STUDY: CT BRAIN WITHOUT CONTRAST REASON FOR EXAM: Female, 24 years old. Headaches and papilledema bilateral RADIATION DOSAGE (If Supplied By Facility): CTDIvol = ( 44.99 ) mGy, DLP = ( 762.36 ) mGycm TECHNIQUE: Transaxial CT imaging of the brain was performed without administration of intravenous contrast material. Individualized dose optimization techniques were used for this CT. COMPARISON: Comparison is made with prior study July 27, 2016. FINDINGS: Normal soft tissue structures. Normal calvarium. Normal size ventricles and extra-axial spaces for the patient''s age. Normal white matter tracts of the cerebral hemispheres. Normal basal ganglia and thalami. Normal brainstem. Normal cerebellum. There is no intracranial hemorrhage. There are no findings of an acute ischemic infarction. Partial opacification of the ethmoid sinuses bilaterally. Nasal septal deviation towards the left side of the midline. CT/Brain/Head without Contrast IMPRESSION: Partial opacification of the ethmoid sinuses bilaterally. Electronically Signed: Jim Cartwright MD at 10:57 EDT ,
== END | disposition home or self-care (01) ==
PROVIDERS: PCP Family Medicine; Referring Provider Family Medicine; Visit Provider Family Medicine
DX: H47.10 Unspecified papilledema (principal); R51.9 Headache, unspecified
CPT/HCPCS: 70450

== ENCOUNTER → 2024-07-29 | Outpatient (CLI) | payer OTHER, SELFPAY ==
--- NOTE | 2024-07-29 18:04 | US_ITS ---
STUDY: SUPERFICIAL ULTRASOUND - LOWER BACK REASON FOR EXAM: Female, 24 years old. LIPOMA- LOWER BACK TECHNIQUE: A superficial ultrasound was performed with real-time and static marin-scale imaging. COMPARISON: None. FINDINGS: Ultrasound of the area of clinical concern shows no definite abnormality. No fluid collection. No mass. Normal tissue planes. US/Ext Non Vasc Limited/Soft Tiss IMPRESSION: No abnormality found. Electronically Signed: Nico Em MD at 22:12 EDT ,
== END | disposition home or self-care (01) ==
LOC: US 18:02
PROVIDERS: PCP Family Medicine; Referring Provider Obstetrics & Gynecology; Visit Provider Obstetrics & Gynecology
DX: D17.39 Benign lipomatous neoplasm of skin and subcutaneous tissue of other sites (principal)
CPT/HCPCS: 76882

== ENCOUNTER → 2024-07-31 | Outpatient (CLI) | payer OTHER, SELFPAY ==
--- NOTE | 2024-07-31 18:03 | US_ITS ---
STUDY: ULTRASOUND OF THE FEMALE PELVIS - COMPLETE REASON FOR EXAM: Female, 24 years old. left pelvic pain check ovaries LMP: 06/30/2024 TECHNIQUE: Transabdominal and Transvaginal TECHNICAL QUALITY: Adequate. COMPARISON: None. FINDINGS: The uterus is retroverted and is in a midline position. The uterus measures 7.2 x 6.3 x 4.9 cm. Normal uterine cervix. The endometrium measures 12 mm in thickness, and is hyperechoic. There is no demonstrated endometrial mass. There is no demonstrated myometrial mass. I.U.D. - The patient does not have an I.U.D. The right ovary is visualized. The right ovary measures 3.3 x 1.9 x 1.6 cm. There is no right ovarian cyst or ovarian mass. There is no visualized right adnexal mass or complex lesion. There is normal arterial and normal venous vascularity. The left ovary is visualized. The left ovary measures 3.4 x 2.6 x 1.9 cm. There is no left ovarian cyst or ovarian mass. There is no visualized left adnexal mass or complex lesion. There is normal arterial and normal venous vascularity. There is no fluid in the cul-de-sac. The pre void volume of the bladder was ml. The post void volume of the bladder was ml. Polycystic ovary disease: No. US/Pelvic w/ Transvaginal IMPRESSION: Normal female pelvis. Electronically Signed: Jeovanny Hernandez MD at 20:12 EDT ,
== END | disposition home or self-care (01) ==
LOC: US 18:01
PROVIDERS: PCP Family Medicine; Referring Provider Obstetrics & Gynecology; Visit Provider Obstetrics & Gynecology
DX: R10.2 Pelvic and perineal pain (principal)
CPT/HCPCS: 76830; 76856

== ENCOUNTER → 2024-08-03 | Outpatient (CLI) | payer OTHER, SELFPAY ==
[2024-08-03 09:11] VITALS: BP 114/70; PULSE 92; RESP 16; TEMP 36.6; O2SAT 100; BMI 23.6
[2024-08-03] MEDS: Lidocaine 2% (5ml sdv) 5 ML VIAL.MPF INFILT (09:35)
[2024-08-03 09:56] LABS: ALB/GLOB Ratio 1.2 RATIO (0.9-2.4); AST(SGOT) 20 U/L (15-37); Alanine Aminotransfer ALT/SGPT 23 U/L (13-56); Alkaline Phosphatase 63 U/L (45-117); Anion Gap 9 (5-15); BUN 10 mg/dL (7-18); BUN/Creat Ratio 12.7 RATIO (10-20); Calcium,Total 9.2 mg/dL (8.5-10.1); Chloride 107 mmol/L (98-107); Creatinine, Serum 0.79 mg/dL (0.55-1.02); EST Glomerular Filtration Rate 94 mL/min (>60); Est Glom Filt Rate - Afr Amer 113 mL/min (>60); Estimated Creatinine Clearance 93.19 ml/min; Globulin 3.3 g/dL (2.2-4.2); Glucose 88 mg/dL (74-106); Potassium 3.8 mmol/L (3.5-5.1); Protein, Total 7.3 g/dL (6.4-8.2); Sodium Level 142 mmol/L (136-145)
[2024-08-03 10:10] VITALS: BP 120/66; PULSE 80; RESP 16; O2SAT 98
--- NOTE | 2024-08-03 10:17 | PCM.OP.PRO ---
Procedure Report Date of Procedure: 08/03/24 Assessment & Plan Assessment/Plan (1) Papilledema: PLAN: PROCEDURE: Fluoroscopic guided Lumbar Puncture. ORDERING PROVIDER: Dr. Zach Garg CLINICAL INDICATION: Female, 24 years old. Papilledema. PROVIDER: CAREN Navarrete MEDICATIONS: 2% lidocaine administered subcutaneously for local anesthesia ACCESS SITE: Lower posterior back, L4/L5 level. NEEDLE: 22-gauge spinal needle. SPECIMEN: Approximately 11.5 mL clear colored CSF fluid. COMPLICATIONS: None immediate. FLUOROSCOPY TIME (if supplied): 1 minutes/0 seconds. 11.6 mGy The risks, benefits, and alternatives to the procedure were explained to the patient and . The specific risks of bleeding, infection, and neurovascular injury were detailed and accepted. Witnessed informed consent was obtained. The patient was placed on the fluoroscopic table in the prone position. The level for needle entry was determined and marked. The overlying skin was cleaned with betadine and draped in the usual sterile fashion. 2% lidocaine was administered subcutaneously for local anesthesia. Under fluoroscopic guidance a 22-gauge spinal needle was advanced. The thecal sac was entered at the L 4-L 5 vertebral level. The inner stylet was removed. There was spontaneous flow of clear CSF fluid. Opening pressure was measured at 16 cm H20, while prone. The patient was placed in a reversed Trendelenburg position. Approximately 11.5 mL of cerebrospinal fluid was collected using gravity. The specimen was collected and submitted to the laboratory for further evaluation. The needle was withdrawn. Hemostasis was achieved and a sterile dressing placed. The patient tolerated the procedure well without any immediate complications. The patient was placed supine for nursing observation in the holding bay. IMPRESSION: Successful fluoroscopic-guided lumbar puncture. Procedures Radiology Radiology Xray Procedures: [id number] Lumbar Puncture Dx Multi Select Codes Radiology Rad Xray Procedures: [id number] Fluoroscopic guidance for needle placement
[2024-08-03 11:02] VITALS: BP 117/69; PULSE 74; RESP 16; O2SAT 98
[2024-08-03 11:19] LABS: Glucose Spinal Fluid 52 mg/dL (40-75)
[2024-08-03 11:25] LABS: LDH,Body Fluid 25 Units/L (Not Establ.)
[2024-08-03 12:37] LABS: Appearance CSF (character) CLEAR (Clear); CSF Color COLORLESS (Colorless); RBC Count, Spinal Fluid 0 /mm-3 (None seen); Tested Tube # 3
[2024-08-03 12:38] LABS: White Count, CSF 0 /mm-3 (0 - 5)
[2024-08-03 12:51] LABS: Body Fluid QC Type(s) BF3Q
[2024-08-03 13:31] LABS: Lymphocytes,CSF 0 % (40 - 80); Monocytes,CSF 0 % (15 - 45); Neutrophils,CSF 0 % (0 - 6)
[2024-08-05 14:14] LABS: Pathologist Review May follow
== END | disposition home or self-care (01) ==
PROVIDERS: PCP Family Medicine; Referring Provider Family Medicine; Visit Provider Family Medicine
DX: H47.10 Unspecified papilledema (principal)
CPT/HCPCS: 36415; 62328; 80053; 82945; 83615; 84157; 87070; 87205; 89050; 89051

== ENCOUNTER → 2024-09-01 | Outpatient (CLI) | payer OTHER, SELFPAY ==
--- NOTE | 2024-09-01 15:40 | MRI_ITS ---
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 TECHNIQUE: Multiplanar and multisequence MR images of the brain were obtained without intravenous contrast. COMPARISON: CT head without contrast 07/28/2024. MRI brain with and without contrast 10/07/2010. FINDINGS: BRAIN AND EXTRA-AXIAL SPACES: Unremarkable. No evidence of acute infarct. No intracranial mass or mass effect. There is preservation of the marin/white matter interface. Posterior fossa structures are unremarkable. Normal bilateral optic nerve and optic nerve sheath complexes. Normal optic chiasm, optic tracts of the rest of the intracranial visual pathways. Normal ventricles and cisterns. No communicating or noncommunicating hydrocephalus. No recent or remote intracranial bleeding. SELLA: Unremarkable. Normal sella turcica, pituitary gland, infundibular stalk, optic chiasm and hypothalamus. AUDITORY SYSTEM: Unremarkable. The internal auditory canals are patent. BONES/JOINTS: Unremarkable. No discrete lytic or blastic abnormalities. SINUSES: See below. MASTOID AIR CELLS: Unremarkable as visualized. Clear. ORBITS: Unremarkable as visualized. Both globes, extraocular muscles, optic nerves and retrobulbar fat appear unremarkable. VASCULATURE: Unremarkable as visualized. Normal flow voids in the major intracranial circulation. SOFT TISSUES: Minimal mucosal edema in the left ethmoid sinus and right posterior ethmoid sinus. Hypoplastic left maxillary sinus. Normal remaining paranasal sinuses. MRI/Brain without Contrast IMPRESSION: 1. Normal MRI of the orbital globes, optic nerves, optic nerve sheath complex, optic tracts and the rest of the intracranial vertebral pathways. 2. Normal MRI brain without contrast. 3. Mild mucosal edema of the left ethmoid sinus and right posterior ethmoid sinus. 4. Developmentally hypoplastic left maxillary sinus. 5. No significant interval change when compared to CT head of 07/28/2024. 6. Suboptimal comparison MRI of the orbits of 10/07/2010 due to metallic braces causing signal distortion artifacts and obliteration of the orbital fossa and contents. Electronically Signed: Luke Linda MD at 13:42 EDT ,
== END | disposition home or self-care (01) ==
LOC: MRI 15:37
PROVIDERS: PCP Family Medicine; Referring Provider Ophthalmology; Visit Provider Ophthalmology
DX: Q07.9 Congenital malformation of nervous system, unspecified (principal)
CPT/HCPCS: 70551

== ENCOUNTER → 2024-09-25 | Outpatient (CLI) | payer OTHER, SELFPAY ==
[2024-09-25 14:43] LABS: Absolute Lymphocyte Count 1.04 X10^3/uL (0.83-4.51); Absolute Neutrophil Count 2.7 X10^3/uL (2.0-7.7); Basophil# 0.04 X10^3/uL; Eosinophil# 0.12 X10^3/uL; Eosinophils% 2.9 % (0-5); Hematocrit 36.7 % (37-47); Hemoglobin 12.5 g/dL (12.0-15.0); Lymphocyte # 1.04 X10^3/ul (0.83-4.51); Lymphocyte % 24.7 % (19-41); Mean Corp Hgb Conc 34.1 g/dL (32-36); Mean Corpuscular Hgb 28.7 pg (27.0-32.0); Mean Corpuscular Volume 84.2 fL (81-99); Mean Platelet Vol. 11.2 fl (6.2-12.0); Monocyte# 0.26 X10^3/uL; Monocyte% 6.2 % (0-10); NRBC Flagged by Analyzer 0 % (0-5); Neutrophil # 2.74 X10^3/uL (2.7-7.7); Platelet Count 285 K/mm3 (150-450); RBC Distribution Width SD 36.4 fl (35.1-43.9); Red Blood Count 4.36 M/mm3 (4.2-5.4); White Blood Count 4.2 K/mm3 (4.4-11.0)
[2024-09-25 15:06] LABS: ALB/GLOB Ratio 1.3 RATIO (0.9-2.4); AST(SGOT) 15 U/L (15-37); Alanine Aminotransfer ALT/SGPT 22 U/L (13-56); Albumin, Serum 4.2 g/dL (3.2-5.0); Alkaline Phosphatase 56 U/L (45-117); Anion Gap 7 (5-15); BUN 13 mg/dL (7-18); BUN/Creat Ratio 15.5 RATIO (10-20); Calcium,Total 9.4 mg/dL (8.5-10.1); Chloride 110 mmol/L (98-107); Creatinine, Serum 0.84 mg/dL (0.55-1.02); EST Glomerular Filtration Rate 87 mL/min (>60); Est Glom Filt Rate - Afr Amer 105 mL/min (>60); Globulin 3.3 g/dL (2.2-4.2); Glucose 97 mg/dL (74-106); Potassium 4.2 mmol/L (3.5-5.1); Protein, Total 7.5 g/dL (6.4-8.2); Sodium Level 140 mmol/L (136-145)
== END | disposition home or self-care (01) ==
LOC: LAB 13:35
PROVIDERS: PCP Family Medicine; Referring Provider Student in an Organized Health Care Education/Training Program; Visit Provider Student in an Organized Health Care Education/Training Program
DX: R10.9 Unspecified abdominal pain (principal)
CPT/HCPCS: 36415; 80053; 85025

== ENCOUNTER 2024-10-29 22:46 | Emergency (ER) | payer OTHER, SELFPAY ==
[2024-10-29 22:47] VITALS: BP 118/60; PULSE 92; RESP 18; TEMP 36.2; O2SAT 100; BMI 22.8
--- NOTE | 2024-10-29 23:03 | CT_ITS ---
EXAM: CT ANGIOGRAPHY CHEST WITHOUT AND WITH INTRAVENOUS CONTRAST CLINICAL INDICATION: cp and elevated d-dimer on out pt lab TECHNIQUE: Helically acquired angiography images were obtained of the chest without and with intravenous contrast. CTDIvol = ( 4.51 ) mGy, DLP = ( 163.54 ) mGycm This CT exam was performed using one or more of the following dose reduction techniques: automated exposure control, adjustment of the mA and/or kV according to patient size, and/or use of iterative reconstruction technique. MIP reconstructed images were created and reviewed. CONTRAST: IV 75mL [id number]-370 COMPARISON: No relevant prior studies available. FINDINGS: PULMONARY ARTERIES: Noncalcified pulmonary nodule measuring 4 mm at the right upper lobe centrally. Normal in caliber. No evidence of pulmonary embolism. AORTA: Unremarkable. Normal in caliber. No evidence of dissection. GREAT VESSELS OF AORTIC ARCH: Unremarkable. Normal in caliber. No evidence of dissection. LUNGS AND PLEURAL SPACES: Unremarkable. No mass. No consolidation or edema. No pleural effusion or thickening. No pneumothorax. HEART: Unremarkable. Heart size is normal. No pericardial effusion. No significant coronary artery calcifications. MEDIASTINUM: Unremarkable. No mediastinal or hilar adenopathy. Esophagus is unremarkable. No hiatal hernia. THYROID: Unremarkable. No thyroid lesions. BONES/JOINTS: Unremarkable. No suspicious lytic or blastic abnormality. CT/CTA Chest W/WO Contrast IMPRESSION: No PE, aortic dissection or pneumonia. Noncalcified pulmonary nodule measuring 4 mm at the right upper lobe centrally. Probably benign but suggest follow-up CT in 6 months document stability given absence of any prior studies to document stability. AIDOC was utilized to assist in identifying pertinent positive findings. Electronically Signed: Elvin Mayfield MD at 1:01 [facility] ,
--- NOTE | 2024-10-29 23:06 | EDS_ITS ---
HPI History of Present Illness Chief Complaint: Abn Labs Informant: patient and spouse/S.O. Onset/Context/Timing Onset: Days Context: Gradual Onset Timing: Intermittent Current Severity: Mild Maximum Severity: Mild Narrative Narrative: 24-year-old female that is medical history of asthma. Recent URI symptoms. Has had some chest discomfort does not pleuritic. And mild shortness of breath. No history of DVT or PE. No family history of clotting problems. She is not on control. She has had no recent travel or surgery. No recent immobilization. No hemoptysis. No leg pain or swelling. Was seen in her primary care physician's office today. They did labs including a D-dimer which was elevated. She spoke to the on-call physician anne-marie who sent in the emergency department to be evaluated. Prior similar symptoms: No Recent Illness/Hospitalization: No PFSH PFSH Medical History H/O papilledema Oligohydramnios Liver disease Abnormal glucose affecting Seasonal allergies Liver tumor Anemia Acid reflux IBS (irritable bowel syndrome) Fatigue Asthma Home Medications ?Medication ?Instructions ?Recorded ?Last Taken ?Type dicyclomine 10 mg capsule 10 mg PO BID #30 caps 08/19/24 Unknown Rx docusate sodium 100 mg capsule 100 mg PO QDAY PRN 08/19/24 Unknown History multivitamin 1 tab PO QDAY 08/19/24 Unknown History Allergy/AdvReac Type Severity Reaction Status Date / Time almond Allergy Severe Anaphylaxis Verified 10/29/24 22:47 Family History Mother Breast cancer 20s Cervical cancer Hypertension Aunt Breast cancer 30s Grandmother Diabetes Hypertension Sister History of recurrent miscarriages Surgical History H/O left breast biopsy Hx of wisdom tooth extraction Social History adopted: No household members: family number of children: 1 current occupational status: employed 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 [employer] current occupational exposures/hazards: No pets and animals: Yes pets and animals: cat(s) history of recent travel: Yes (- September) out of state: Yes out of country: No sexually active: Yes Smoking Status: Never smoker second hand exposure: No alcohol intake: current alcohol intake frequency: holidays/special occasions only details: not while substance use type: does not use well-balanced diet: about half the time caffeine: Yes Type: coffee Number of servings: 1 eating out: 1-3 times/week during the past year weight has: decreased > 10 lbs what type of physical activity do you participate in: none price/baptism: [employer]beterian seatbelt use: always do you feel safe at home: Yes additional social history: [facility] ROS ROS ED ROS Narrative URI. Chest discomfort. Mild shortness of breath. Constitutional Constitutional ED: Denies chills or fever(s) Eyes Eyes: Denies blurry vision ENT ENT ED: Denies ear pain Cardiovascular Cardiovascular: Reports chest pain Respiratory/Chest Respiratory/Chest: Reports cough and dyspnea Gastrointestinal Gastrointestinal: Denies abdominal pain, constipation, diarrhea, melena, nausea or vomiting Genitourinary Genitourinary ED: Denies dysuria or hematuria Musculoskeletal Musculoskeletal: Denies arthralgias, back pain, myalgias or neck pain Integumentary Denies abscess or Abrasions Neurologic Neurologic: Denies headache(s) or paresthesias Psychiatric Psychiatric: Denies anxiety or depression Endocrine Endocrinology: Denies cold intolerance Hematologic/Lymphatic Hematologic/Lymphatic: Reports none Allergic/Immunologic Allergic/Immunologic ED: Denies mouth swelling, tongue swelling or urticaria EXAM Physical Exam Narrative Exam Narrative: 24-year-old female sitting upright in bed. Significant other at bedside. Vital signs are stable afebrile. She is in no distress. Her pulse ox 100% on room a ir no hypoxia. H EENT exam normal. Moist use membranes. Neck nontender no JVD. No lymphadenopathy. Lungs clear to auscultation bilaterally. Heart regular rate and rhythm rate about 90 no murmur. She has reproducible chest wall pain. On the anterior chest. To palpation. There is no ecchymosis or bruising or redness. No crepitance or subcu air. Abdomen soft nontender. Moving all 4 extremities. Nontender no edema or cords. 5/5 local area network systems adminstrator strength. Dorsi plantarflexion intact. Radial pulses equal and symmetrical. Back exam nontender. Neurologically she is awake and alert with no focal motor deficits. Const Vital Signs: 12/26/24 22:47 10/29/24 23:03 Temperature 97.2 F L Temperature Source Temporal Pulse Rate 92 Respiratory Rate 18 Respiratory Effort Short of Breath Respiratory Pattern Normal Blood Pressure 118/60 Blood Pressure Mean 79 Pulse Ox 100 Oxygen Delivery Method Room Air Positive well nourished and well developed; Negative for obese, cachectic, contractures or unkempt General Appearance ED: well developed and NAD; Negative for unkempt, cachectic, contractures, cyanotic, diaphoretic or pallor Nutritional Appearance: Negative for cachectic or obese HEENT Reports moist mucous membranes Negative for trauma or tenderness Eyes PERRL and EOMs intact bilaterally General Eye ED: Negative for pale conjunctiva, scleral icterus or other Neck no lymphadenopathy, supple and no JVD General: Negative for tenderness Lymph Lymphatic: Negative for other Chest Wall inspection of chest normal and palpation of chest normal Chest Narrative: Mild reproducible chest wall pain anteriorly. Resp normal respiratory effort and clear to auscultation bilaterally Effort and Inspection: Negative for retractions or pain with movement Auscultation: Negative for rales, rhonchi, wheezes or diminished lung sounds Cardio regular rhythm, S1 normal heart sound, S2 normal heart sound and no murmurs Palpation: Negative for palpable S3 or palpable S4 Rate: Negative for bradycardia or tachycardic Rhythm: Negative for abnormal rhythm GI normal to inspection, nondistended, normoactive bowel sounds, non-tender, non- distended and no masses Inspection: Negative for abdominal distention Auscultation: normoactive bowel sounds Palpation: soft; Negative for tender, guarding or rebound tenderness present Back/Spine no CVA tenderness General Back: Negative for CVA tenderness or other Cervical Spine: Negative for cervical spine tenderness Thoracic Spine / Upper Back: Negative for thoracic spinal tenderness or paraspinal muscle tenderness Lumbar Spine / Lower Back: Negative for lumbar spinal tenderness Extremity normal to inspection General Extremety ED: Negative for edema or tenderness General Extremity: Negative for edema Neuro oriented x3 and CN's II-XII intact bilaterally Sensorium / Orientation: alert; Negative for orientation impaired, lethargic or stuporous Sensory Exam: No sensory level loss detected Motor Exam: strength 5/5 throughout; Negative for general weakness or strength abnormal Psych mental status grossly normal Appearance: Negative for unkempt Attitude: No agitated Mood & Affect: Negative for depressed, anxious or tearful Skin no rashes or lesions noted, no wounds and skin turgor normal General Skin Exam: elasticity normal; Negative for jaundice or pallor Lesions: No lesion noted Rashes: No rashes noted Trauma: Negative for abrasion Wounds: Negative for wounds noted MDM MDM MDM Narrative Medical decision making narrative: 24-year-old female recent URI. Has reproducible chest wall pain. Has no DVT or PE risk factors or family history. Normal exam except for the reproducible chest wall pain. Came in for a CTA due to an elevated outpatient D-dimer. My clinical suspicion is extremely low. CTA of be obtained. She said the CAT scan dye often makes her throw up she will be pretreated with Zofran. Repeat exam at 11:50 PM. Patient doing well. Exam unchanged. Resting comfortably. She has had her CAT scan. I have reviewed it. We are awaiting the radiology official read. History & Record Review Discussion w/independent historian: Patient and Family Additional record(s) reviewed:: Prior inpatient record, Prior outpatient record, Prior ED visit and Prior labs Discharge Plan Triage Chief Complaint: Abn Labs ED Provider: Jonathan Alvarado Dx/Rx/DC Orders Clinical Impression: Chest pain, Chest wall pain, Viral URI Instructions: ED URI, Viral, No Abx (Adult) Prescriptions: No Action docusate sodium 100 mg capsule 100 mg PO QDAY PRN multivitamin Tablet 1 tab PO QDAY dicyclomine 10 mg capsule 10 mg PO BID Qty: 30 2RF Primary Care Provider: Zach Garg Referrals: Zach Garg MD [Primary Care Provider] - As Needed Activity Restrictions/Additional Instructions: Motrin and/or Tylenol for musculoskeletal chest pain. Print Language: Romanian Disposition Disposition: Home, Self Care
[2024-10-29] MEDS: Ondansetron 4 MG/2 ML Vial IV (23:14)
--- NOTE | 2024-10-30 00:38 | ED.RN ---
CT CALLED FOR PROLONGED IMAGING READ TIME. RESPONSE, WE WILL CALL AND GET IT READ
[2024-10-30 00:46] VITALS: BP 108/63; PULSE 77; RESP 16; O2SAT 100
== END 2024-10-30 01:23 | disposition home or self-care (01) ==
PROVIDERS: Emergency Provider Emergency Medicine; PCP Family Medicine; Visit Provider Emergency Medicine
DX: R07.89 Other chest pain (principal); J06.9 Acute upper respiratory infection, unspecified; R06.02 Shortness of breath; J45.909 Unspecified asthma, uncomplicated; K21.9 Gastro-esophageal reflux disease without esophagitis
CPT/HCPCS: 71275; 96374; 99283; Q9967; A4216; J2405

== ENCOUNTER → 2024-10-29 | Outpatient (CLI) | payer OTHER, SELFPAY ==
[2024-10-29 17:47] LABS: Absolute Lymphocyte Count 1.17 X10^3/uL (0.83-4.51); Absolute Neutrophil Count 3.4 X10^3/uL (2.0-7.7); Basophil# 0.04 X10^3/uL; Basophil% 0.8 % (0-1); Eosinophil# 0.16 X10^3/uL; Eosinophils% 3.2 % (0-5); Hematocrit 38.7 % (37-47); Hemoglobin 12.6 g/dL (12.0-15.0); Lymphocyte # 1.17 X10^3/ul (0.83-4.51); Lymphocyte % 23.3 % (19-41); Mean Corp Hgb Conc 32.6 g/dL (32-36); Mean Corpuscular Hgb 28.6 pg (27.0-32.0); Mean Platelet Vol. 11.4 fl (6.2-12.0); Monocyte# 0.25 X10^3/uL; NRBC Flagged by Analyzer 0 % (0-5); Neutrophil # 3.39 X10^3/uL (2.7-7.7); Neutrophil % 67.5 % (47-70); Platelet Count 278 K/mm3 (150-450); RBC Distribution Width CV 12.2 % (11.6-14.6); RBC Distribution Width SD 39.2 fl (35.1-43.9)
[2024-10-29 18:22] LABS: CRP < 2.90 mg/L (0.0-3.0)
== END | disposition home or self-care (01) ==
LOC: MFPLAB 14:31
PROVIDERS: PCP Family Medicine
DX: R07.9 Chest pain, unspecified (principal)
CPT/HCPCS: 36415; 84443; 85025; 85379; 86140

== ENCOUNTER → 2025-05-24 | Outpatient (CLI) | payer OTHER, SELFPAY ==
[2025-05-24 16:21] LABS: Iron 76 ug/dL (50-170); Iron Binding Capacity,Total 303 ug/dL (250-450); Iron Binding Capacity,Unsat 227 ug/dL (228-428)
[2025-05-24 16:23] LABS: Ferritin 11 ng/mL (22-378); Vitamin D,25 Hydroxy 30.5 ng/mL (30-100)
== END | disposition home or self-care (01) ==
LOC: BIMLAB 13:40
PROVIDERS: PCP Internal Medicine; Referring Provider Internal Medicine; Visit Provider Internal Medicine
DX: R53.83 Other fatigue (principal)
CPT/HCPCS: 36415; 82306; 82728; 83540; 83550

== ENCOUNTER → 2025-09-22 | Outpatient (CLI) | payer SELFPAY ==
[2025-09-24 06:08] LABS: Mumps Antibody,IgG < 9.0 AU/mL (Immune >10.9); QNTFERON TB Mitogen Value > 10.00 IU/mL (.); QNTFERON TB Nil Value 0.02 IU/mL (.); QNTFERON TB1+ Ag Value 0.03 IU/mL (.); QNTFERON TB2+ Ag Value 0.03 IU/mL (.); QNTIFERON TB Positive Criteria Negative (Negative)
== END | disposition home or self-care (01) ==
LOC: LAB 16:48
PROVIDERS: PCP Internal Medicine; Referring Provider Internal Medicine; Visit Provider Internal Medicine
DX: Z01.84 Encounter for antibody response examination (principal); Z11.1 Encounter for screening for respiratory tuberculosis
CPT/HCPCS: 36415; 86480; 86735; 86762; 86765; 86787